=== PATIENT | female | born 2000 | race Caucasian/White ===

== ENCOUNTER 2022-09-18 12:05 | Outpatient (OUT) | payer BC, SELFPAY ==
--- NOTE | 2022-09-18 12:46 | ECG_ITS ---
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
--- NOTE | 2022-09-18 13:23 | PM.PRESUREVA ---
History of Present Illness History of Present Illness Chief complaint: vaginal cyst Narrative: Patient presents for preadmission testing. The patient states she's been dealing with a vaginal cyst for approximately the past year. She states it has recently grown in size and become more painful. The patient reports she had a sinus infection approximately one week ago and took Augmentin and is feeling better at this time. She has a remote history of palpitations and tachycardia, she was evaluated by cardiology and has been released, she is not currently medicated for tachycardia. She denies shortness of breath, cough, dysuria, hematuria, abdominal pain, nausea, vomiting, fever, or any other complaints. Review of Systems ROS Narrative REVIEW OF SYSTEMS: Negative except as stated in HPI, ten or more systems reviewed. Constitutional: No fever , chills, weakness ENT: No sore throat or epistaxis Cardiovascular: No edema, chest pain, palpitations, or activity intolerance Respiratory: No shortness of breath, cough, or wheezing Musculoskeletal: No joint pain or swelling Gastrointestinal: No abdominal pain, constipation, diarrhea, or vomiting Genitourinary: No dysuria or hematuria Neurological: No numbness, tingling, weakness, or headache Psychiatric: No mood changes [facility] Medical History (Updated 09/18/22 @ 13:28 by Citlalli Flores NP) (~09/2022) (~09/2022) Surgical History (Updated 09/18/22 @ 13:04 by Mi Virgen) (2007) Family History (Updated 09/18/22 @ 12:56 by Mi Virgen) Other Family history of CHF (congestive heart failure) Family history of hypertension Family history of myocardial infarction Social History (Updated 09/18/22 @ 13:07 by Mi Virgen) Within the past year, how often did you have a drink containing alcohol: 2-3 times a week Within the past year, how often did you have six or more drinks on one occasion: never Smoking status: Current every day smoker Do you use any of these nicotine containing products: vaping products Second hand tobacco smoke exposure: Yes Non-prescribed substance use: denies use 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 Highest level of school completed/degree received: Associate degree: occupational, technical, vocational program Meds Home Medications and Allergies Home Medications Medication Instructions Recorded Confirmed Type sertraline 100 mg tablet (Zoloft) 100 mg PO DAILY 09/18/22 09/18/22 History Allergies Allergy/AdvReac Type Severity Reaction Status Date / Time naproxen Allergy Severe Anaphylaxis Verified 09/18/22 12:39 [From Flanax (naproxen)] Exam Narrative Exam Narrative: Constitutional: Awake, alert, comfortable, well-appearing, nontoxic, interactive, vital signs as charted Head: Normocephalic, atraumatic Eyes: Conjunctiva and lids normal to inspection, pupils normal ENT: Tympanic membranes pearly akins, nonerythematous, noninjected, naris patent, posterior oropharynx clear, oral mucosa moist Neck: Supple, normal appearance, normal range of motion, no meningeal signs, no lymphadenopathy Respiratory: No respiratory distress, breath sounds clear Cardiovascular: Regular rate and rhythm, strong and regular heart tones Abdomen: Nontender, normal bowel sounds, soft, no CVA tenderness Musculoskeletal: Normal gait, no swelling or edema Skin: No rashes or induration, no lesions, only visible skin inspected Neuro: No neurological deficits, normal sensation Psychiatric: Oriented ?3, normal affect Assessment and Plan Assessment and Plan (1) Sinusitis: Onset Date: ~09/2022 (2) Vaginal cyst: Onset Date: ~09/2022 Plan Removal vaginal cyst scheduled with Dr. Smith 09/22/2022.
== END 2022-09-18 12:06 ==
PROVIDERS: PCP Family Medicine
DX: Z01.810 Encounter for preprocedural cardiovascular examination (principal); N89.8 Other specified noninflammatory disorders of vagina
CPT/HCPCS: 93005; G0463

== ENCOUNTER 2022-09-22 07:05 | Day surgery (SDC) | payer BC, SELFPAY ==
[2022-09-18 12:46] VITALS: BMI 26.9
[2022-09-18 12:48] VITALS: BP 115/78; PULSE 85; RESP 16; TEMP 36.6; O2SAT 98
[2022-09-18 13:08] VITALS: BP 115/78; PULSE 85; TEMP 36.6; O2SAT 98; BMI 26.9
[2022-09-22] VITALS (10 sets, daily range): BP systolic 100–118; BP diastolic 63–82; PULSE 69–114; RESP 10–20; TEMP 36.1; O2SAT 96–100; BMI 26.8
[2022-09-22 07:22] LABS: Basophils Absolute Auto 0.1 10^3/uL (0.0-0.1); Basophils Percent Auto 0.7 % (0.2-2.0); Eosinophils Absolute Auto 0.1 10^3/uL (0.0-0.7); Eosinophils Percent Auto 1.2 % (0.9-7.0); Hematocrit 42.5 % (36.0-48.0); Hemoglobin 14.3 g/dL (12.0-16.0); Immature Granulocytes Abs Auto 0.03 10^3/uL (0.00-0.03); Immature Granulocytes Pct Auto 0.4 % (0.0-0.5); Lymphocytes Absolute Auto 1.9 10^3/uL (1.2-3.8); Lymphocytes Percent Auto 26.7 % (20.5-60.0); Mean Corpuscular HGB Conc 33.6 g/dL (29.9-35.2); Mean Corpuscular Volume 86.2 fL (81.0-99.0); Mean Platelet Volume 10.3 fL (9.5-13.5); Monocytes Absolute Auto 0.4 10^3/uL (0.3-0.8); Monocytes Percent Auto 6.4 % (1.7-12.0); Neutrophils Absolute Auto 4.5 10^3/uL (1.4-6.5); Neutrophils Percent Auto 64.6 % (43.0-75.0); Platelet Count 242 10^3/uL (150-450); Red Blood Count 4.93 10^6/uL (4.20-5.40); Red Cell Distribution Width 12.4 % (11.0-15.0); White Blood Count 6.9 10^3/uL (4.0-11.0)
[2022-09-22 07:48] LABS: HCG Quantitative <1 mIU/mL
[2022-09-22] MEDS: MEPERIDINE HCL/PF 25 MG/ML VIAL IVP (10:04)
--- NOTE | 2022-09-22 10:37 | PC.NURSE ---
medicated with Demerol IV as ordered
[2022-09-22] MEDS: HYDROCODONE/ACETAMINOPHEN 5-325 MG TABLET 1 TAB PO (10:56)
--- NOTE | 2022-09-22 11:00 | PC.NURSE ---
no wound drainage vaginally; peripad dry
--- NOTE | 2022-09-22 11:03 | PC.NURSE ---
IV site swollen when about to give IV medication; no numbness or tingling of extremity noted; no blanching noted; warm compress applied to site and extremity elevated
--- NOTE | 2022-09-22 11:09 | PC.NURSE ---
peripad dry; waiting for Dr. Smith to give pain med order
--- NOTE | 2022-09-22 11:54 | PC.NURSE ---
up to bathroom and voided clear yellow urine without difficulty; peripad dry
--- NOTE | 2022-09-22 13:39 | OP_ITS ---
OPERATION DATE: ??09/22/2022 PROCEDURE:? Excision of a Murphy?s duct cyst. PREOPERATIVE DIAGNOSIS:? Dyspareunia, Murphy?s duct cyst. POSTOPERATIVE DIAGNOSIS:? Dyspareunia, Murphy?s duct cyst. ANESTHESIA:? General. SURGEON:? Monty Smith D.O. CONCAVING MACHINE OPERATOR:? None. BLOOD LOSS:? 10 mL. URINE OUTPUT:? Yellow and clear. FINDINGS:? Right Murphy?s duct cyst. SPECIMEN:? Cyst wall. PROCEDURE:? Patient was taken back to the operating room.? She was given general anesthesia without difficulty, after being prepped and draped in normal sterile fashion.? The cyst, which appeared to either be a Murphy?s duct cyst or inclusion cyst was seen just inside the right labial fold.? An incision was made over approximately 4 cm.? Incision was made over the area of the cyst.? This then was gently from the underlying tissue using Metzenbaum scissors.? The cyst wall did appear to be removed in its entirety.? The bed of the cyst wall was then cauterized using a Bovie.? Excellent hemostasis was assured.? The skin was closed with 4-0 Monocryl in a running, locked fashion.? Sponge, lap and needle counts correct x2.? Patient taken to recovery room in stable condition. MTDD
== END 2022-09-22 11:50 | disposition home or self-care (01) ==
PROVIDERS: PCP Family Medicine; Visit Provider Obstetrics & Gynecology
PROC: (CPT 57135; principal; 2022-09-22 08:30)
DX: Q52.4 Other congenital malformations of vagina (principal); N94.10 Unspecified dyspareunia; F41.1 Generalized anxiety disorder; K29.30 Chronic superficial gastritis without bleeding; E78.00 Pure hypercholesterolemia, unspecified; I49.3 Ventricular premature depolarization; Z79.899 Other long term (current) drug therapy
CPT/HCPCS: 57135; 36415; 84702; 85025; 88305; J1170; J2704

== ENCOUNTER 2022-09-27 21:46 | Outpatient (REF) | payer BC, SELFPAY | END 2022-09-27 21:47 | disposition home or self-care (01) | LOC: LAB 21:46 | PROVIDERS: PCP Obstetrics & Gynecology; Visit Provider Obstetrics & Gynecology | DX: N89.8 Other specified noninflammatory disorders of vagina (principal) | CPT/HCPCS: 87070; 87150; 87186 ==

== ENCOUNTER 2022-09-29 16:28 | Emergency (ER) | payer BC, SELFPAY ==
[2022-09-29 16:37] VITALS: BP 132/76; PULSE 103; RESP 18; TEMP 37.3; O2SAT 97; BMI 25.8
[2022-09-29] MEDS: HYDROCODONE/ACETAMINOPHEN 5-325 MG TABLET 1 TAB PO (17:14)
[2022-09-29] MEDS: BACITRACIN 0.9 GM PACKET 1 PACKET TOPICAL (17:14)
--- NOTE | 2022-09-29 17:23 | ED.GENADUL1 ---
HPI - General Adult General Chief complaint: Wound/Laceration Stated complaint: BLEEDING FROM SURGICAL SITE Time Seen by Provider: 09/29/22 16:41 Source: patient Mode of arrival: walk-in Limitations: no limitations History of Present Illness HPI narrative: Patient presents emergency room chief complaint dehiscence of the postoperative procedure on her right labial region. She had a cyst that was removed earlier in the week. Area dehisced she was seen by her physician where he did attempt to resolve the area is now opened again. Patient's here with discomfort and pain. She is currently on Keflex. She has no fevers chills. Open wound on the right labia measuring 2 x 3 cm length and width. No active bleeding or drainage Related Data Home Medications Medication Instructions Recorded Confirmed sertraline 100 mg tablet (Zoloft) 100 mg PO DAILY 09/18/22 09/22/22 Previous Rx's Medication Instructions Recorded bacitracin 500 unit/gram topical 1 applic topical BID #28 grams 09/29/22 ointment Allergies Allergy/AdvReac Type Severity Reaction Status Date / Time naproxen Allergy Severe Anaphylaxis Verified 09/18/22 12:39 [From Flanax (naproxen)] Review of Systems ROS Narrative All Systems are negative except as noted/marked.All systems reviewed and otherwise negative PFSH PFS Medical History (Updated 09/29/22 @ 17:28 by Lisa Macario) (~09/2022) (~09/2022) Surgical History (Updated 09/18/22 @ 13:04 by Mi Virgen) (2007) Family History (Updated 09/18/22 @ 12:56 by Mi Virgen) Other Family history of CHF (congestive heart failure) Family history of hypertension Family history of myocardial infarction Social History (Updated 09/18/22 @ 13:07 by Mi Virgen) Within the past year, how often did you have a drink containing alcohol: 2-3 times a week Within the past year, how often did you have six or more drinks on one occasion: never Smoking status: Current every day smoker Do you use any of these nicotine containing products: vaping products Second hand tobacco smoke exposure: Yes Non-prescribed substance use: denies use 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 Patient is resting comfortably on cart. Skin: Warm, dry, no pallor noted. There is no rash noted. Head: Normocephalic, atraumatic Eye: Normal conjunctiva, no drainage, EOMI. PERRL gu: right labial wound dehisence , some sutures intact, no active bleeding or drainage GI: Normal bowel sounds, no tenderness to palpation, no masses appreciated. No rebound, guarding, or rigidity noted. Musculoskeletal: The patient has no evidence of calf tenderness, no pitting edema, symmetrical pulses noted bilaterally Neurological: A&O x4, normal speech Psychiatric: Cooperative Constitutional Vital Signs - 24 hr 09/29/22 16:37 Temperature 99.1 F Pulse Rate [Monitor] 103 H Respiratory Rate 18 Blood Pressure [Left Arm] 132/76 H Pulse Oximetry 97 Genital images (female): 1. post op cycst removal wound open Course Vital Signs Vital signs: Vital Signs Temperature 99.1 F 09/29/22 16:37 Pulse Rate 103 H 09/29/22 16:37 Respiratory Rate 18 09/29/22 16:37 Blood Pressure 132/76 H 09/29/22 16:37 Pulse Oximetry 97 09/29/22 16:37 Temperature 99.1 F 09/29/22 16:37 Pulse Rate 103 H 09/29/22 16:37 Respiratory Rate 18 09/29/22 16:37 Blood Pressure 132/76 H 09/29/22 16:37 Pulse Oximetry 97 09/29/22 16:37 Medical Decision Making [facility] Narrative Medical decision making narrative: She presented here with a chief complaint of wound dehiscence to a vaginal cyst that she had had surgically removed last week. Seen by her primary LOGGING TRACTOR OPERATOR SWAMP earlier this week where he did try to reclose area. He is now open again. There is no drainage or discharge. The area is tender. Patient states Tylenol is not helping. Medicated here with one [place] discharged home with prescription of [place]. I did call and speak to Dr. Smith concerning this patient's care. Bacitracin was placed on the area and Xeroform was then placed on the area. Patient be discharged home with Xeroform. She'll follow-up in his office this next week. Patient's otherwise looks well no acute distress. Discharge Plan Discharge Chief Complaint: Wound/Laceration Clinical Impression: Dehiscence of wound Patient Disposition: Home, Self-Care Time of Disposition Decision: 17:23 Prescriptions / Home Meds: New bacitracin 500 unit/gram ointment 1 applic topical BID Qty: 28 0RF No Action sertraline [Zoloft] 100 mg tablet 100 mg PO DAILY Instructions: Wound Dehiscence (ED) Stand Alone Forms: Portal Instructions Referrals: Monty Smith DO [Primary Care Provider] - 1 week
== END 2022-09-29 17:37 | disposition home or self-care (01) ==
PROVIDERS: Emergency Provider Emergency Medicine; PCP Obstetrics & Gynecology
DX: T81.31XA Disruption of external operation (surgical) wound, not elsewhere classified, initial encounter (principal); F17.210 Nicotine dependence, cigarettes, uncomplicated
CPT/HCPCS: 99283

== ENCOUNTER 2022-10-11 12:03 | Outpatient (OUT) | payer BC, SELFPAY ==
[2022-10-11 13:17] LABS: HCG Quantitative 23390 mIU/mL
== END 2022-10-11 12:04 | disposition home or self-care (01) ==
LOC: LAB 12:08
PROVIDERS: Visit Provider Obstetrics & Gynecology
DX: N92.5 Other specified irregular menstruation (principal)
CPT/HCPCS: 36415; 84702

== ENCOUNTER 2022-11-02 12:40 | Outpatient (OUT) | payer BC, SELFPAY ==
--- NOTE | 2022-11-02 12:43 | US_ITS ---
[address] [address] Patient Name: PAPITO BOSS MRN: [id number] date: 2000 Sex: F Assigned Patient Location: US Current Patient Location: US Accession/Order Number: [id number] Exam Date: 11/02/2022 12:43 Report Date: 11/02/2022 20:54 At the request of: SHELLY SCHMID Procedure: US OB transvaginal EXAMINATION: US OB transvaginal HISTORY: MISSED PERIOD COMPARISON: No relevant comparison available. FINDINGS: [place] intrauterine gestation Gestational sac: 4.13 cm, 9 weeks 4 days [place]-rump length: 2.3 cm centimeters, 9 weeks 0 days Yolk sac: 3.7 mm Heart rate: 171 beats minute Cervix: Closed, 4.7 cm The uterus is normal, anteverted, anteflexed The ovaries are normal Clinical age: 8 weeks 5 days Clinical RITIKA: 06/09/2023 Ultrasound age: 9 weeks 0 days Ultrasound RITIKA: 06/07/2023 US/US OB transvaginal IMPRESSION: [place] intrauterine gestation measuring 9 weeks 0 days Electronically authenticated by: REAGAN CALERO Date: 11/02/2022 20:54
== END 2022-11-02 12:41 | disposition home or self-care (01) ==
LOC: US 12:40
PROVIDERS: Visit Provider Obstetrics & Gynecology
DX: N92.5 Other specified irregular menstruation (principal); Z33.1 Pregnant state, incidental
CPT/HCPCS: 76817

== ENCOUNTER 2022-11-17 13:23 | Outpatient (OUT) | payer BC, MEDICAID, SELFPAY ==
[2022-11-17 14:27] LABS: Basophils Percent Auto 0.3 % (0.2-2.0); Eosinophils Absolute Auto 0.1 10^3/uL (0.0-0.7); Eosinophils Percent Auto 0.7 % (0.9-7.0); Hematocrit 37.6 % (36.0-48.0); Hemoglobin 12.8 g/dL (12.0-16.0); Immature Granulocytes Abs Auto 0.03 10^3/uL (0.00-0.03); Immature Granulocytes Pct Auto 0.4 % (0.0-0.5); Lymphocytes Absolute Auto 1.6 10^3/uL (1.2-3.8); Lymphocytes Percent Auto 20.4 % (20.5-60.0); Mean Corpuscular Hemoglobin 29.7 pg (26.7-34.0); Mean Corpuscular Volume 87.2 fL (81.0-99.0); Mean Platelet Volume 12.1 fL (9.5-13.5); Monocytes Absolute Auto 0.4 10^3/uL (0.3-0.8); Monocytes Percent Auto 4.6 % (1.7-12.0); Neutrophils Absolute Auto 5.6 10^3/uL (1.4-6.5); Neutrophils Percent Auto 73.6 % (43.0-75.0); Platelet Count 138 10^3/uL (150-450); Red Blood Count 4.31 10^6/uL (4.20-5.40); Red Cell Distribution Width 13.3 % (11.0-15.0); White Blood Count 7.6 10^3/uL (4.0-11.0)
[2022-11-17 14:51] LABS: Estimated Average Glucose 97 mg/dL
[2022-11-18 06:11] LABS: HIV Ab/p24 Ag Screen Non Reactive (Non Reactive); Rubella Antibodies, IgG 3.16 index (Immune >0.99)
[2022-11-18 08:12] LABS: HBsAg Screen Negative (Negative)
[2022-11-18 09:09] LABS: HCV Ab Non Reactive (Non Reactive); Rapid Plasma Reagin, Quant Non Reactive (NonRea<1:1)
== END 2022-11-17 13:24 | disposition home or self-care (01) ==
LOC: LAB 13:26
PROVIDERS: PCP Family Medicine; Visit Provider Obstetrics & Gynecology
DX: N92.6 Irregular menstruation, unspecified (principal); Z34.80 Encounter for supervision of other normal pregnancy, unspecified trimester
CPT/HCPCS: 36415; 83036; 84443; 85025; 86592; 86706; 86762; 86803; 86850; 86900; 86901; 87086; 87389

== ENCOUNTER 2022-11-29 00:12 | Emergency (ER) | payer BC, MEDICAID, SELFPAY ==
[2022-11-29 00:18] VITALS: BP 138/89; PULSE 108; RESP 16; TEMP 37.2; O2SAT 97; BMI 27.4
--- NOTE | 2022-11-29 00:34 | ED.PREGNANC1 ---
HPI - General Chief complaint: OB/Uterine Contractions Stated complaint: PROBLEMS <20 WEEKS Time Seen by Provider: 11/29/22 00:28 Source: patient Mode of arrival: walk-in Limitations: no limitations History of Present Illness HPI Narrative: [id number] 12 weeks . bleeding tonight after intercourse. No pain. bleeding now slowing down. otherwise feels well Related Data Home Medications Medication Instructions Recorded Confirmed sertraline 100 mg tablet (Zoloft) 100 mg PO DAILY 09/18/22 11/29/22 [id number] 1 mg 1 tab PO DAILY 11/29/22 11/29/22 tablet Previous Rx's Medication Instructions Recorded bacitracin 500 unit/gram topical 1 applic topical BID #28 grams 09/29/22 ointment Allergies Allergy/AdvReac Type Severity Reaction Status Date / Time naproxen Allergy Severe Anaphylaxis Verified 11/29/22 00:22 [From Flanax (naproxen)] Review of Systems ROS Status of ROS 10 or more systems reviewed and unremarkable except as noted in history and below [facility] Medical History (Updated 11/29/22 @ 02:07 by Jim Manzo MD) (~09/2022) (~09/2022) Surgical History (Updated 09/18/22 @ 13:04 by Mi Perez) (2007) Family History (Updated 09/18/22 @ 12:56 by Mi Perez) Other Family history of CHF (congestive heart failure) Family history of hypertension Family history of myocardial infarction Social History (Updated 09/18/22 @ 13:07 by Mi Perez) Within the past year, how often did you have a drink containing alcohol: 2-3 times a week Within the past year, how often did you have six or more drinks on one occasion: never Smoking status: Never smoker Do you use any of these nicotine containing products: vaping products Second hand tobacco smoke exposure: Yes Non-prescribed substance use: denies use 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 Highest level of school completed/degree received: Associate degree: occupational, technical, vocational program Exam Constitutional Vital Signs, click to edit/add: Last Vital Signs Temp 98.9 F 11/29/22 00:18 Pulse 92 H 11/29/22 01:06 Resp 16 11/29/22 00:18 BP 115/73 11/29/22 01:06 Pulse Ox 97 11/29/22 00:18 O2 Del Method Room Air 11/29/22 00:18 Common normals: no apparent distress, average body habitus, oriented x3, no limitations, healthy appearing and alert Eye Common normals: PERRL, EOMs intact bilaterally and conjunctivae normal Respiratory Common normals: normal respiratory effort, no retractions and no use of accessory muscles Cardio Common normals: regular rate, regular rhythm, S1 normal heart sound and S2 normal heart sound GI Common normals: Normal to inspection, nondistended, normoactive bowel sounds present, soft to palpation and non-tender Extremity Common normals: normal to inspection Neuro Common normals: oriented x3, CN's II-XII intact bilaterally, moves all extremities and no focal motor deficits Psych Appearance: grossly normal Course Vital Signs Vital signs: Vital Signs Temperature 98.9 F 11/29/22 00:18 Pulse Rate 108 H 11/29/22 00:18 Respiratory Rate 16 11/29/22 00:18 Blood Pressure 138/89 11/29/22 00:18 Pulse Oximetry 97 11/29/22 00:18 Oxygen Delivery Method Room Air 11/29/22 00:18 Temperature 98.9 F 11/29/22 00:18 Pulse Rate 92 H 11/29/22 01:06 Respiratory Rate 16 11/29/22 00:18 Blood Pressure 115/73 11/29/22 01:06 Pulse Oximetry 97 11/29/22 00:18 Oxygen Delivery Method Room Air 11/29/22 00:18 MDM - OB/Uterine Contractions MDM Narrative Medical decision making narrative: patient with transient bleeding after intercourse. abdominal exam neg. [id number]. No bleeding at this time. H/H WNL. Rh +. lab reveals a decline in Quantitative HCG from last month. Will have patient repeat Quant HCQ in 48 hours and then follow up with Dr Smith labs reviewed and she is 0+ Lab Data Labs: Lab Results 11/29/22 Range/Units 00:40 WBC 6.8 (4.0-11.0) 10^3/uL RBC 4.22 (4.20-5.40) 10^6/uL Hgb 12.6 (12.0-16.0) g/dL Hct 37.0 (36.0-48.0) % MCV 87.7 (81.0-99.0) fL MCH 29.9 (26.7-34.0) pg MCHC 34.1 (29.9-35.2) g/dL RDW 13.2 (11.0-15.0) % Plt Count 212 (150-450) 10^3/uL MPV 10.6 (9.5-13.5) fL Neut % (Auto) 64.0 (43.0-75.0) % Lymph % (Auto) 27.6 (20.5-60.0) % [place] % (Auto) 6.7 (1.7-12.0) % Eos % (Auto) 1.0 (0.9-7.0) % Baso % (Auto) 0.4 (0.2-2.0) % Neut # (Auto) 4.3 (1.4-6.5) 10^3/uL Lymph # (Auto) 1.9 (1.2-3.8) 10^3/uL [place] # (Auto) 0.5 (0.3-0.8) 10^3/uL Eos # (Auto) 0.1 (0.0-0.7) 10^3/uL Baso # (Auto) 0.0 (0.0-0.1) 10^3/uL Abs Immat Gran (auto) 0.02 (0.00-0.03) 10^3/uL Imm/Tot Granulo (auto) 0.3 (0.0-0.5) % Sodium 136 (136-145) mmol/L Potassium 3.4 L (3.5-5.1) mmol/L Chloride 103 (98-107) mmol/L Carbon Dioxide 22.3 (21.0-32.0) mmol/L Anion Gap 14.1 BUN 8.0 (7.0-18.0) mg/dL Creatinine 0.60 (0.55-1.02) mg/dL Est GFR ( Amer) >60 (>=60) Est GFR (Non-Af Amer) >60 (>=60) BUN/Creatinine Ratio 13.3 Glucose 106 (74-106) mg/dL Calcium 8.6 (8.5-10.1) mg/dL HCG, Quant 86324 mIU/mL Discharge Plan Discharge Chief Complaint: OB/Uterine Contractions Clinical Impression: Threatened miscarriage Patient Disposition: Home, Self-Care Prescriptions / Home Meds: No Action bacitracin 500 unit/gram ointment 1 applic topical BID Qty: 28 0RF [id number] 1 mg tablet 1 tab PO DAILY sertraline [Zoloft] 100 mg tablet 100 mg PO DAILY Instructions: Threatened Miscarriage (ED) Additional Instructions: have lab testing 48 hours after test tonight for comparison Stand Alone Forms: Portal Instructions Referrals: Tj Toribio MD [Primary Care Provider] - 1 week
[2022-11-29 00:51] LABS: Basophils Percent Auto 0.4 % (0.2-2.0); Eosinophils Absolute Auto 0.1 10^3/uL (0.0-0.7); Hemoglobin 12.6 g/dL (12.0-16.0); Immature Granulocytes Abs Auto 0.02 10^3/uL (0.00-0.03); Immature Granulocytes Pct Auto 0.3 % (0.0-0.5); Lymphocytes Absolute Auto 1.9 10^3/uL (1.2-3.8); Lymphocytes Percent Auto 27.6 % (20.5-60.0); Mean Corpuscular HGB Conc 34.1 g/dL (29.9-35.2); Mean Corpuscular Hemoglobin 29.9 pg (26.7-34.0); Mean Corpuscular Volume 87.7 fL (81.0-99.0); Mean Platelet Volume 10.6 fL (9.5-13.5); Monocytes Absolute Auto 0.5 10^3/uL (0.3-0.8); Monocytes Percent Auto 6.7 % (1.7-12.0); Neutrophils Absolute Auto 4.3 10^3/uL (1.4-6.5); Platelet Count 212 10^3/uL (150-450); Red Blood Count 4.22 10^6/uL (4.20-5.40); Red Cell Distribution Width 13.2 % (11.0-15.0); White Blood Count 6.8 10^3/uL (4.0-11.0)
[2022-11-29 01:06] VITALS: BP 109/82; BP 114/80; BP 115/73; PULSE 92; PULSE 94
[2022-11-29 01:26] LABS: Anion Gap 14.1; BUN Creatinine Ratio 13.3; Calcium 8.6 mg/dL (8.5-10.1); Carbon Dioxide 22.3 mmol/L (21.0-32.0); Chloride 103 mmol/L (98-107); Estimated GFR (African America >60 (>=60); Estimated GFR (Non-African Ame >60 (>=60); Glucose 106 mg/dL (74-106); HCG Quantitative 22168 mIU/mL; Potassium 3.4 mmol/L (3.5-5.1); Sodium 136 mmol/L (136-145)
[2022-11-29 02:16] VITALS: BP 118/70; PULSE 83; RESP 16; O2SAT 98
== END 2022-11-29 02:22 | disposition home or self-care (01) ==
PROVIDERS: Emergency Provider Internal Medicine; PCP Family Medicine
DX: O20.0 Threatened abortion (principal); Z3A.12 12 weeks gestation of pregnancy; Z79.899 Other long term (current) drug therapy
CPT/HCPCS: 36415; 80048; 84702; 85025; 99283

== ENCOUNTER 2022-12-05 14:11 | Outpatient (OUT) | payer BC, MEDICAID, SELFPAY ==
--- NOTE | 2022-12-05 14:11 | US_ITS ---
[address] [address] Patient Name: PAPITO BOSS MRN: [id number] date: 2000 Sex: F Assigned Patient Location: [facility] Current Patient Location: LAB Accession/Order Number: [id number] Exam Date: 12/05/2022 14:15 Report Date: 12/05/2022 15:17 At the request of: SHELLY SCHMID Procedure: US OB cervical length EXAMINATION: US OB cervical length HISTORY: VAGINAL BLEEDING IN . O46.92 COMPARISON: Ultrasound OB transvaginal 11/02/2022 TECHNIQUE: Transabdominal and transvaginal sonographic examination for cervical length. FINDINGS: PLACENTA: Anterior with lower margin 4.8 cm from internal os. CERVIX LENGTH: 4.4 cm, closed. HEART RATE: 147 bpm Age by EDC: 13 weeks 3 days RITIKA by EDC: 06/09/2023 US/US OB cervical length IMPRESSION: 1. Single live intrauterine . 2. Closed cervix 4.4 cm in length. No placental previa. Electronically authenticated by: SAUL HOBBS Date: 12/05/2022 15:17
== END 2022-12-05 14:12 | disposition home or self-care (01) ==
LOC: NOMS 14:11
PROVIDERS: PCP Family Medicine; Visit Provider Obstetrics & Gynecology
DX: O46.92 Antepartum hemorrhage, unspecified, second trimester (principal); Z3A.00 Weeks of gestation of pregnancy not specified
CPT/HCPCS: 76817

== ENCOUNTER 2022-12-05 14:38 | Outpatient (OUT) | payer BC, MEDICAID, SELFPAY ==
[2022-12-05 15:27] LABS: Platelet Count 190 10^3/uL (150-450)
[2022-12-08 16:09] LABS: AFP Value 17.2 ng/mL (.); Gest. Age on Collection Date 13.4 weeks (.); Gestat. Age Based On As provided (.); Insulin Dep Diabetes No (.); Maternal Age At EDD 24.9 yr (.); OSBR Risk 1 IN See interpretation. (.); Results Report (.)
== END 2022-12-05 14:39 | disposition home or self-care (01) ==
PROVIDERS: PCP Family Medicine; Visit Provider Obstetrics & Gynecology
DX: O26.892 Other specified pregnancy related conditions, second trimester (principal); D69.6 Thrombocytopenia, unspecified; O46.92 Antepartum hemorrhage, unspecified, second trimester; Z3A.00 Weeks of gestation of pregnancy not specified
CPT/HCPCS: 36415; 76817; 82105; 85049

== ENCOUNTER 2023-01-19 13:37 | Outpatient (OUT) | payer BC, OTHER, SELFPAY ==
[2023-01-21 00:11] LABS: AFP Value 52.3 ng/mL (.); Gest. Age on Collection Date 19.9 weeks (.); Insulin Dep Diabetes No (.); Maternal Age At EDD 24.9 yr (.); OSBR Risk 1 IN 10000 (.); Results Report (.)
== END 2023-01-19 13:38 | disposition home or self-care (01) ==
LOC: LAB 13:38
PROVIDERS: PCP Family Medicine; Visit Provider Obstetrics & Gynecology
DX: Z34.92 Encounter for supervision of normal pregnancy, unspecified, second trimester (principal)
CPT/HCPCS: 36415; 82105

== ENCOUNTER 2023-01-22 07:57 | Outpatient (OUT) | payer BC, OTHER, SELFPAY ==
--- NOTE | 2023-01-22 08:00 | US_ITS ---
[address] [address] Patient Name: PAPITO BOSS MRN: [id number] date: 2000 Sex: F Assigned Patient Location: US Current Patient Location: LAB Accession/Order Number: [id number] Exam Date: 01/22/2023 08:01 Report Date: 01/22/2023 10:31 At the request of: GHISLAINE VEGA Procedure: US OB anatomy EXAMINATION: US OB anatomy HISTORY: ANATOMY COMPARISON: No relevant comparison available. TECHNIQUE: Transabdominal sonographic examination was performed for obstetrical and evaluation. FINDINGS: Number: 1 Heart Rate: 142.0 bpm H.B. /min Amniotic Fluid Volume: Subjectively normal position: Cephalic presentation, longitudinal lie Placental Location: ANTERIOR, placental edge 4.8 cm from the internal cervical os Cervix Length: 4.6 cm , closed Normal anatomy: Lateral ventricles, cerebellum, posterior fossa, nose, lips, orbits, four-chamber heart, RVOT, LVOT, diaphragm, stomach, kidneys, abdominal cord insertion, bladder, umbilical arteries, three-vessel cord, spine, extremities BIOMETRY: BPD: 5.1 cm 21 weeks 2 days , 87% HC: 18.7 cm 21 weeks 0 days, 76% AC: 15.1 cm 20 weeks 2 days, 46% FL: 3.7 cm 21 weeks 6 days, 90% EFW:397.9 grams; 14 ounces, 86% FL/AC: 24.7 FL/BPD: 73.9 HC/AC: 1.2 GESTATIONAL AGE: Age by EDC: 20 weeks 2 days RITIKA by EDC: 06/09/2023 Age by current US: 21 weeks 1 days RITIKA by current US: 06/03/2023 US/US OB anatomy IMPRESSION: Normal anatomy scan *Reference: [employer] Practice Guideline for the performance of Obstetric Ultrasound Examinations, January 07, 2007. Electronically authenticated by: REAGAN CALERO Date: 01/22/2023 10:31
--- NOTE | 2023-01-22 08:00 | US_ITS ---
[address] [address] Patient Name: PPAITO BOSS MRN: [id number] date: 2000 Sex: F Assigned Patient Location: US Current Patient Location: LAB Accession/Order Number: [id number] Exam Date: 01/22/2023 08:01 Report Date: 01/22/2023 10:31 At the request of: GHISLAINE VEGA Procedure: US OB cervical length EXAMINATION: US OB anatomy HISTORY: ANATOMY COMPARISON: No relevant comparison available. TECHNIQUE: Transabdominal sonographic examination was performed for obstetrical and evaluation. FINDINGS: Number: 1 Heart Rate: 142.0 bpm H.B. /min Amniotic Fluid Volume: Subjectively normal position: Cephalic presentation, longitudinal lie Placental Location: ANTERIOR, placental edge 4.8 cm from the internal cervical os Cervix Length: 4.6 cm , closed Normal anatomy: Lateral ventricles, cerebellum, posterior fossa, nose, lips, orbits, four-chamber heart, RVOT, LVOT, diaphragm, stomach, kidneys, abdominal cord insertion, bladder, umbilical arteries, three-vessel cord, spine, extremities BIOMETRY: BPD: 5.1 cm 21 weeks 2 days , 87% HC: 18.7 cm 21 weeks 0 days, 76% AC: 15.1 cm 20 weeks 2 days, 46% FL: 3.7 cm 21 weeks 6 days, 90% EFW:397.9 grams; 14 ounces, 86% FL/AC: 24.7 FL/BPD: 73.9 HC/AC: 1.2 GESTATIONAL AGE: Age by EDC: 20 weeks 2 days RITIKA by EDC: 06/09/2023 Age by current US: 21 weeks 1 days RITIKA by current US: 06/03/2023 US/US OB cervical length IMPRESSION: Normal anatomy scan *Reference: [employer] Practice Guideline for the performance of Obstetric Ultrasound Examinations, January 07, 2007. Electronically authenticated by: REAGAN CALERO Date: 01/22/2023 10:31
== END 2023-01-22 07:58 | disposition home or self-care (01) ==
LOC: US 07:58
PROVIDERS: PCP Family Medicine; Visit Provider Physician Assistant
DX: Z34.92 Encounter for supervision of normal pregnancy, unspecified, second trimester (principal); Z3A.20 20 weeks gestation of pregnancy
CPT/HCPCS: 76805; 76817

== ENCOUNTER 2023-02-24 08:58 | Outpatient (OUT) | payer BC, OTHER, SELFPAY ==
[2023-02-24 09:55] LABS: Basophils Percent Auto 0.4 % (0.2-2.0); Eosinophils Percent Auto 0.5 % (0.9-7.0); Hematocrit 36.4 % (36.0-48.0); Hemoglobin 12.3 g/dL (12.0-16.0); Immature Granulocytes Abs Auto 0.05 10^3/uL (0.00-0.03); Immature Granulocytes Pct Auto 0.7 % (0.0-0.5); Lymphocytes Absolute Auto 1.9 10^3/uL (1.2-3.8); Lymphocytes Percent Auto 25.1 % (20.5-60.0); Mean Corpuscular HGB Conc 33.8 g/dL (29.9-35.2); Mean Corpuscular Hemoglobin 29.6 pg (26.7-34.0); Mean Corpuscular Volume 87.5 fL (81.0-99.0); Mean Platelet Volume 10.8 fL (9.5-13.5); Monocytes Absolute Auto 0.3 10^3/uL (0.3-0.8); Monocytes Percent Auto 4.5 % (1.7-12.0); Neutrophils Absolute Auto 5.1 10^3/uL (1.4-6.5); Neutrophils Percent Auto 68.8 % (43.0-75.0); Platelet Count 200 10^3/uL (150-450); Red Blood Count 4.16 10^6/uL (4.20-5.40); Red Cell Distribution Width 13.3 % (11.0-15.0); White Blood Count 7.4 10^3/uL (4.0-11.0)
[2023-02-24 10:15] LABS: Glucose 1 Hour 162 mg/dL
== END 2023-02-24 08:59 | disposition home or self-care (01) ==
LOC: LAB 08:58
PROVIDERS: PCP Family Medicine; Visit Provider Physician Assistant
DX: Z34.92 Encounter for supervision of normal pregnancy, unspecified, second trimester (principal)
CPT/HCPCS: 36415; 82950; 85025

== ENCOUNTER 2023-03-02 08:11 | Outpatient (OUT) | payer BC, OTHER, SELFPAY ==
[2023-03-02 08:29] LABS: Glucose Fasting 80 mg/dL (74-106)
[2023-03-02 11:00] LABS: Glucose 2 Hour 175 mg/dL
[2023-03-02 11:56] LABS: Glucose 3 Hour 166 mg/dL
[2023-03-02 13:26] LABS: Glucose 1 Hour 157 mg/dL
== END 2023-03-02 08:12 | disposition home or self-care (01) ==
LOC: LAB 08:11
PROVIDERS: PCP Family Medicine; Visit Provider Obstetrics & Gynecology
DX: Z34.92 Encounter for supervision of normal pregnancy, unspecified, second trimester (principal); E74.39 Other disorders of intestinal carbohydrate absorption
CPT/HCPCS: 36415; 82951; 82952

== ENCOUNTER 2023-03-30 11:15 | Outpatient (OUT) | payer BC, OTHER, SELFPAY | END 2023-03-30 11:16 | disposition home or self-care (01) | LOC: CR 11:15 | PROVIDERS: PCP Family Medicine; Visit Provider Obstetrics & Gynecology | DX: O24.410 Gestational diabetes mellitus in pregnancy, diet controlled (principal) | CPT/HCPCS: G0108 ==

== ENCOUNTER 2023-04-16 18:04 | Outpatient (OUT) | payer BC, OTHER, SELFPAY ==
--- NOTE | 2023-04-16 | US_ITS ---
[address] [address] Patient Name: PAPITO BOSS MRN: [id number] date: 2000 Sex: F Assigned Patient Location: US Current Patient Location: Accession/Order Number: [id number] Exam Date: 04/16/2023 18:07 Report Date: 04/17/2023 07:19 At the request of: SHELLY SCHMID Procedure: US OB growth EXAMINATION: US OB growth HISTORY: SIZE INCONSISTEN WITH DATES O26.849 COMPARISON: No relevant comparison available. FINDINGS: Heart Rate: 141.4 bpm Amniotic Fluid Volume: 13.0 cm Number: 1.0 Position: Breech presentation, longitudinal lie Maximum Vertical Pocket: 2.7 cm cm 2.8 cm cm 3.7 cm cm 3.7 cm cm BIOMETRY: BPD: 7.9 cm cm; 31 weeks 4 days; 21% HC: 31.4 cmcm; 35 weeks 1 days, 85% AC: 28.4 cm cm; 32 weeks 3 days, 54% FL: 6.4 cm cm; 33 weeks 0 days; 57.8 % % EFW: 2051.3 grams, 4 lbs. 8 oz., 56% FL/AC: 22.5 FL/BPD: 81.3 HC/AC: 1.1 GESTATIONAL AGE: Age by EDC: 32 weeks 2 days RITIKA by EDC: 06/09/2023 Age by US: 33 weeks 0 days RITIKA by US: 06/04/2023 US/US OB growth IMPRESSION: Normal interval growth Electronically authenticated by: REAGAN CALERO Date: 04/17/2023 07:19
--- OUTSIDE RECORDS SUMMARY | 2023-04-16 18:06 | XMS_ITS | CCD ---
Author Name Unknown Address [address] [facility] [address] [place] [address] Organization [facility] Care Team Providers Care Tailer Out Name Role Phone BINU ., DR BRAVO Attending Unavailable BINU ., DR BRAVO Consulting Unavailable BINU ., DR BRAVO Admitting Unavailable NADERER, DR ANDRE Shukla Primary Care Unavailable NADERER, DR ANDRE Shukla Attending Unavailable NADERER, DR ANDRE Shukla Consulting Unavailable NADERER, DR ANDRE Shukla Primary Care Unavailable NADERER, DR ANDRE Shukla Admitting Unavailable BINU ., DR BRAVO Attending Unavailable BINU ., DR BRAVO Consulting Unavailable BINU ., DR BRAVO Admitting Unavailable NADERER, DR ANDRE Shukla Primary Care Unavailable BINU, SHELLY Attending Unavailable SILVIAGHISLAINE Attending Unavailable Allergies Allergy Classification Reported Allergen(s) Allergy Type Date of Onset Reaction(s) Facility (1 source) Naproxen Drug Allergy 07-02-2019 [facility] Repository Problems Active Problems Problem Classification Problem Date Documented Date Episodic/Chronic Cancer of cervix (4 sources) Low grade squamous intraepithelial lesion on cytologic smear of cervix (LGSIL); Translations: [LGSIL ON CYTOLOGIC SMEAR OF CERVIX] Onset: 07-12-2022 Episodic Past or Other Problems Problem Classification Problem Date Documented Date Episodic/Chronic Immunizations and screening for infectious disease (1 source) Encounter for screening for human papillomavirus (HPV); Translations: [ENC SCREENING HUMAN PAPILLOMAVIRUS] Onset: 12-18-2021 Episodic Other screening for suspected conditions (not mental disorders or infectious disease) (4 sources) Encounter for screening for malignant neoplasm of cervix; Translations: [ENC SCREENING MALIG NEOPLASM CERV] Onset: 12-14-2021 Episodic Results Test Name Value Interpretation Reference Range Facility PAP ACOG PANEL 2: 21 to 29on 07-20-2022 . . Normal [facility] Comment on above: Performed By: #### [id number] #### [facility] [address] [place] [address] Dr. Jame Hutton Age Gdln ACOG Testing 21-29 Normal [facility] Comment on above: Performed By: #### 4 [id number] #### [facility] [address] [place] [address] Dr. Jame Hutton DIAGNOSIS: Comment Abnormal [facility] Comment on above: Result Comment: EPIT HELIAL CELL ABNORMALITY. LOW GRADE SQUAMOUS INTRAEPITHELIAL LESION (LSIL). Performed By: #### [id number] #### [facility] [address] [place] [address] Dr. Jame Hutton Electronically signed by: Comment Normal [facility] Comment on above: Result Comment: Yohana Garsia MD, Pathologist Performed By: #### 4 [id number] #### [facility] [address] [place] [address] Dr. Jame Hutton Methodology: Comment [facility] Comment on above: Result Comment: This liquid based ThinPrep(R) pap test was screened with the use of an image guided system. Performed By: #### 4 [id number] #### [facility] [address] [place] [address] Dr. Jame Hutton Note: Comment [facility] Comment on above: Result Comment: The Pap smear is a screening test designed to aid in the detection of premalignant and malignant conditions of the uterine cervix. It is not a diagnostic procedure and should not be used as the sole means of detecting cervical cancer. Both false-positive and false-negative reports do occur. . Performed By: #### 4 [id number] #### [facility] [address] [place] [address] Dr. Jame Hutton Pathologist Provided ICD10 Comment [facility] Comment on above: Result Comment: [id number]. [id number] Performed By: #### 4 [id number] #### [facility] [address] [place] [address] Dr. Jame Hutton Performed by: Comment Normal [facility] Comment on above: Result Comment: Shivani el Fredeking, Television Writer (ASCP) Performed By: #### 4 [id number] #### [facility] [address] [place] [address] Dr. Jame Hutton Recommendation: Comment Abnormal [facility] Comment on above: Result Comment: Sugg est follow up as clinically appropriate. Performed By: #### 4 [id number] #### [facility] [address] [place] [address] Dr. Jame Hutton Reflex Criteria: Comment Normal [facility] Comment on above: Result Comment: The HPV DNA reflex criteria were not met with this specimen result therefore, no HPV testing was performed. . Performed By: #### 4 [id number] #### [facility] [address] [place] [address] Dr. Jame Hutton Specimen adequacy: Comment Normal [facility] Comment on above: Result Comment: Sati sfactory for evaluation. Endocervical and/or squamous metaplastic cells (endocervical component) are present. Areas of partially obscuring inflammatory exudate are present. Performed By: #### 4 [id number] #### [facility] [address] [place] [address] Dr. Jame Hutton INSULINon 02-03-2022 Insulin 11.5 uIU/mL Normal 2.6-24.9 [facility] Comment on above: Performed By: #### I NSULIN #### [facility] [address] [place] [address] Dr. Jame Hutton CBC AUTO DIFFon 02-01-2022 BASO # 0.0 103/ul Normal 0.0-0.1 [facility] Comment on above: Performed By: #### C BC #### [facility] [address] [place] [address] Dr. Jame Hutton Basophils/100 WBC (Bld) 0.6 % Normal 0.2-2.0 [facility] Comment on above: Performed By: #### C BC #### [facility] [address] [place] [address] Dr. Jame Hutton EO # 0.1 103/ul Normal 0.0-0.7 [facility] Comment on above: Performed By: #### C BC #### [facility] [address] [place] [address] Dr. Jame Hutton Eosinophils/100 WBC (Bld) 0.8 % Critically low 0.9-7.0 [facility] Comment on above: Performed By: #### C BC #### [facility] [address] [place] [address] Dr. Jame Hutton Erythrocyte distribution width (RBC) [Ratio] 12.5 % Normal 11.0-15.0 [facility] Comment on above: Performed By: #### C BC #### [facility] [address] [place] [address] Dr. Jame Hutton Hematocrit (Bld) [Volume fraction] 43.5 % Normal 36.0-48.0 [facility] Comment on above: Performed By: #### C BC #### [facility] [address] [place] [address] Dr. Jame Hutton Hemoglobin (Bld) [Mass/Vol] 14.8 g/dL Normal 12.0-16.0 [facility] Comment on above: Performed By: #### C BC #### [facility] [address] [place] [address] Dr. Jame Hutton IG # 0.02 10e3/ul Normal 0.00-0.03 [facility] Comment on above: Performed By: #### C BC #### [facility] [address] [place] [address] Dr. Jame Hutton IG % 0.3 % Normal 0.0-0.5 [facility] Comment on above: Performed By: #### C BC #### [facility] [address] [place] [address] Dr. Jame Hutton LYMPH # 1.7 103/ul Normal 1.2-3.8 [facility] Comment on above: Performed By: #### C BC #### [facility] [address] [place] [address] Dr. Jame Hutton Lymphocytes/100 WBC (Bld) 23.3 % Normal 20.5-60.0 [facility] Comment on above: Performed By: #### C BC #### [facility] [address] [place] [address] Dr. Jame Hutton MANUAL DIFF REQ NO Normal [facility] Comment on above: Performed By: #### C BC #### [facility] [address] [place] [address] Dr. Jame Hutton MCH (RBC) [Entitic mass] 29.5 pg Normal 26.7-34.0 [facility] Comment on above: Performed By: #### C BC #### [facility] [address] [place] [address] Dr. Jame Hutton MCHC (RBC) [Mass/Vol] 34.0 g/dL Normal 29.9-35.2 [facility] Comment on above: Performed By: #### C BC #### [facility] [address] [place] [address] Dr. Jame Hutton MCV (RBC) [Entitic vol] 86.8 fL Normal 81.0-99.0 [facility] Comment on above: Performed By: #### C BC #### [facility] [address] [place] [address] Dr. Jame Hutton MONO # 0.4 103/ul Normal 0.3-0.8 [facility] Comment on above: Performed By: #### C BC #### [facility] [address] [place] [address] Dr. Jame Hutton Monocytes/100 WBC (Bld) 5.8 % Normal 1.7-12.0 [facility] Comment on above: Performed By: #### C BC #### [facility] [address] [place] [address] Dr. Jame Hutton NEUT # 5.0 103/ul Normal 1.4-6.5 [facility] Comment on above: Performed By: #### C BC #### [facility] [address] [place] [address] Dr. Jame Hutton Neutrophils/100 WBC (Bld) 69.2 % Normal 43.0-75.0 [facility] Comment on above: Performed By: #### C BC #### [facility] [address] [address] [address] Jame Hutton Platelet mean volume (Bld) [Entitic vol] 11.5 fL Normal 9.5-13.5 [facility] Comment on above: Performed By: #### C BC #### [facility] [address] [address] [address] Jame Hutton PLT 250 103/ul Normal 150-450 [facility] Comment on above: Performed By: #### C BC #### [facility] [address] [address] [address] Jame Hutton RBC 5.01 106/ul Normal 4.20-5.40 [facility] Comment on above: Performed By: #### C BC #### [facility] [address] [place] [address] Dr. Jame Hutton WBC 7.3 103/ul Normal 4.0-11.0 [facility] Comment on above: Performed By: #### C BC #### [facility] [address] [place] [address] Dr. Jame Hutton GLYCOHEMOGLOBIN A1Con 2021 ADA RECOMMENDATION SEE BELOW Normal [facility] Comment on above: Result Comment: ADA RECOMMENDED LIMIT 4.0 - 6.0 ADA THERAPEUTIC TARGET < 7.0 ACTION SUGGESTED > 7.0 Performed By: #### A 1C #### [facility] [address] [place] [address] Dr. Jame Hutton Glucose [Mass/Vol] 94 mg/dL Normal [facility] Comment on above: Performed By: #### A 1C #### [facility] [address] [place] [address] Dr. Jame Hutton HbA1c (Bld) [Mass fraction] 4.9 % Normal 4.5-6.2 [facility] Comment on above: Performed By: #### A 1C #### [facility] [address] [place] [address] Dr. Jame Hutton LIPID PROFILEon 02-01-2022 CHOL-HDL RATIO NORM SEE BELOW Normal [facility] Comment on above: Result Comment: 3.3 - 4.4 LOW RISK 4.4 - 7.1 AVERAGE RISK 7.1 - 11.0 MODERATE RISK >11.0 HIGH RISK Performed By: #### B MP, LIPID, TSH, LIVER #### [facility] [address] [place] [address] Dr. Jame Hutton Cholesterol [Mass/Vol] 182 mg/dL Normal <=200 [facility] Comment on above: Performed By: #### B MP, LIPID, TSH, LIVER #### [facility] [address] [place] [address] Dr. Jame Hutton Cholesterol in HDL [Mass/Vol] 41 mg/dL Normal 40-60 [facility] Comment on above: Performed By: #### B MP, LIPID, TSH, LIVER #### [facility] [address] [place] [address] Dr. Jame Hutton Cholesterol in LDL [Mass/Vol] 102.6 mg/dL Normal [facility] Comment on above: Performed By: #### B MP, LIPID, TSH, LIVER #### [facility] [address] [place] [address] Dr. Jame Hutton Cholesterol.total/Cho lesterol in HDL [Mass ratio] 4.4 {ratio} Normal [facility] Comment on above: Performed By: #### B MP, LIPID, TSH, LIVER #### [facility] [address] [place] [address] Dr. Jame Hutton HDL NORMAL > or = 60 mg/dl - LO W CARDIOVASCULAR RISK <40 mg/dl - HIGH CARDIOVASCULAR RISK Normal [facility] Comment on above: Performed By: #### B MP, LIPID, TSH, LIVER #### [facility] [address] [place] [address] Dr. Jame Hutton LDL CALC NORMAL SEE BELOW Normal [facility] Comment on above: Result Comment: <100 mg/dl OPTIMAL 100 - 129 mg/dl NEAR OR ABOVE OPTIMAL 130 - 159 mg/dl BORDERLINE HIGH 160 - 189 mg/dl HIGH >190 mg/dl VERY HIGH Performed By: #### B MP, LIPID, TSH, LIVER #### [facility] [address] [place] [address] Dr. Jame Hutton Triglyceride [Mass/Vol] 192 mg/dL Critically high <=150 [facility] Comment on above: Performed By: #### B MP, LIPID, TSH, LIVER #### [facility] [address] [place] [address] Dr. Jame Hutton VLDL CALC 38.4 mg/dL Normal [facility] Comment on above: Performed By: #### B MP, LIPID, TSH, LIVER #### [facility] [address] [place] [address] Dr. Jame Hutton LIVER PROFILEon 02-01-2022 Albumin [Mass/Vol] 4.5 g/dL Normal 3.4-5.0 [facility] Comment on above: Performed By: #### B MP, LIPID, TSH, LIVER #### [facility] [address] [place] [address] Dr. Jame Hutton Albumin/Globulin [Mass ratio] 1.3 {ratio} Normal [facility] Comment on above: Performed By: #### B MP, LIPID, TSH, LIVER #### [facility] [address] [place] [address] Dr. Jame Hutton ALP [Catalytic activity/Vol] 96 U/L Normal 46-116 [facility] Comment on above: Performed By: #### B MP, LIPID, TSH, LIVER #### [facility] [address] [place] [address] Dr. Jame Hutton ALT [Catalytic activity/Vol] 35 U/L Normal 14-59 [facility] Comment on above: Performed By: #### B MP, LIPID, TSH, LIVER #### [facility] [address] [place] [address] Dr. Jame Hutton AST [Catalytic activity/Vol] 16 U/L Normal 15-37 [facility] Comment on above: Performed By: #### B MP, LIPID, TSH, LIVER #### [facility] [address] [place] [address] Dr. Jame Hutton BILI, CONJUGATED 0.1 mg/dL Normal 0.0-0.2 [facility] Comment on above: Performed By: #### B MP, LIPID, TSH, LIVER #### [facility] [address] [place] [address] Dr. Jame Hutton Bilirubin [Mass/Vol] 0.2 mg/dL Normal 0.2-1.0 [facility] Comment on above: Performed By: #### B MP, LIPID, TSH, LIVER #### [facility] [address] [place] [address] Dr. Jame Hutton Globulin (S) [Mass/Vol] 3.4 g/dL Normal [facility] Comment on above: Performed By: #### B MP, LIPID, TSH, LIVER #### [facility] [address] [place] [address] Dr. Jame Hutton Protein [Mass/Vol] 7.9 g/dL Normal 6.4-8.2 [facility] Comment on above: Performed By: #### B MP, LIPID, TSH, LIVER #### [facility] [address] [place] [address] Dr. Jame Hutton PROF CHEM 8 (BAS METB)on Anion gap [Moles/Vol] 11.6 mmol/L Normal [facility] Comment on above: Performed By: #### B MP, LIPID, TSH, LIVER #### [facility] [address] [place] [address] Dr. Jame Hutton Calcium [Mass/Vol] 9.5 mg/dL Normal 8.5-10.1 [facility] Comment on above: Performed By: #### B MP, LIPID, TSH, LIVER #### [facility] [address] [place] [address] Dr. Jame Hutton Chloride [Moles/Vol] 102 mmol/L Normal 98-107 [facility] Comment on above: Performed By: #### B MP, LIPID, TSH, LIVER #### [facility] [address] [place] [address] Dr. Jame Hutton CO2 [Moles/Vol] 29.3 mmol/L Normal 21.0-32.0 [facility] Comment on above: Performed By: #### B MP, LIPID, TSH, LIVER #### [facility] [address] [place] [address] Dr. Jame Hutton Creatinine [Mass/Vol] 0.73 mg/dL Normal 0.55-1.02 [facility] Comment on above: Performed By: #### B MP, LIPID, TSH, LIVER #### [facility] [address] [address] [address] Jame Hutton EGFR-AF MACANESE >60 Normal >=60 [facility] Comment on above: Performed By: #### B MP, LIPID, TSH, LIVER #### [facility] [address] [address] [address] Jame Hutton EGFR-NON AF MACANESE >60 Normal >=60 [facility] Comment on above: Performed By: #### B MP, LIPID, TSH, LIVER #### [facility] [address] [place] [address] Dr. Jame Hutton Glucose [Mass/Vol] 87 mg/dL Normal 74-106 [facility] Comment on above: Performed By: #### B MP, LIPID, TSH, LIVER #### [facility] [address] [address] [address] Jame Hutton Potassium [Moles/Vol] 3.9 mmol/L Normal 3.5-5.1 [facility] Comment on above: Performed By: #### B MP, LIPID, TSH, LIVER #### [facility] [address] [address] [address] Jame Hutton Sodium [Moles/Vol] 139 mmol/L Normal 136-145 [facility] Comment on above: Performed By: #### B MP, LIPID, TSH, LIVER #### [facility] [address] [address] [address] Jame Hutton Urea nitrogen [Mass/Vol] 11.0 mg/dL Normal 7.0-18.0 [facility] Comment on above: Performed By: #### B MP, LIPID, TSH, LIVER #### [facility] [address] [address] [address] Jame Hutton Urea nitrogen/Creatinine [Mass ratio] 15.1 mg/mg Normal [facility] Comment on above: Performed By: #### B MP, LIPID, TSH, LIVER #### [facility] [address] [address] [address] Jame Hutton TSHon 02-01-2022 TSH 1.696 uIU/mL Normal 0.358-3.740 [facility] Comment on above: Performed By: #### B MP, LIPID, TSH, LIVER #### [facility] [address] [place] [address] Dr. Jame Hutton PAP ACOG PANEL 2: 21 to 29on 12-21-2021 . . Normal [facility] Comment on above: Performed By: #### 4 [id number] #### [facility] [address] [place] [address] Dr. Jame Hutton Age Gdln ACOG Testing - [facility] Comment on above: Performed By: #### 4 [id number] #### [facility] [address] [place] [address] Dr. Jame Hutton DIAGNOSIS: Comment Abnormal [facility] Comment on above: Result Comment: EPIT HELIAL CELL ABNORMALITY. LOW GRADE SQUAMOUS INTRAEPITHELIAL LESION (LSIL). Performed By: #### [id number] #### [facility] [address] [place] [address] Dr. Jame Hutton Electronically signed by: Comment Normal [facility] Comment on above: Result Comment: Yohana Garsia MD, Pathologist Performed By: #### 4 [id number] #### [facility] [address] [place] [address] Dr. Jame Hutton Methodology: Comment Normal [facility] Comment on above: Result Comment: This liquid based ThinPrep(R) pap test was screened with the use of an image guided system. Performed By: #### 4 [id number] #### [facility] [address] [place] [address] Dr. Jame Hutton Note: Comment Normal [facility] Comment on above: Result Comment: The Pap smear is a screening test designed to aid in the detection of premalignant and malignant conditions of the uterine cervix. It is not a diagnostic procedure and should not be used as the sole means of detecting cervical cancer. Both false-positive and false-negative reports do occur. . Performed By: #### 4 [id number] #### [facility] [address] [address] [address] Jame Hutton Pathologist Provided ICD10 Comment Normal [facility] Comment on above: Result Comment: [id number] Performed By: #### 4 [id number] #### [facility] [address] [address] [address] Jame Hutton Performed by: Comment Normal [facility] Comment on above: Result Comment: Linn Kemp, Television Writer (ASCP) Performed By: #### 4 [id number] #### [facility] [address] [address] [address] Jame Hutton Recommendation: Comment Abnormal [facility] Comment on above: Result Comment: Sugg est follow up as clinically appropriate. Performed By: #### 4 [id number] #### [facility] [address] [address] [address] Jame Hutton Reflex Criteria: Comment Normal [facility] Comment on above: Result Comment: The HPV DNA reflex criteria were not met with this specimen result therefore, no HPV testing was performed. . Performed By: #### 4 [id number] #### [facility] [address] [address] [address] Jame Hutton Specimen adequacy: Comment Normal [facility] Comment on above: Result Comment: Sati sfactory for evaluation. Endocervical and/or squamous metaplastic cells (endocervical component) are present. Performed By: #### 4 [id number] #### [facility] [address] [address] [address] Jame Hutton Encounters Encounter Date Encounter Type Care Provider Facility Start: 03-29-2023 End: 03-29-2023 ambulatory GHISLAINE VEGA Not Available Start: 03-15-2023 End: 03-15-2023 ambulatory SHELLY SCHMID Not Available Start: 07-12-2022 End: 07-12-[address] SHELLY SCHMID . Facility: Start: 02-05-2022 Encounter for genera l adult medical examination without abnormal findings DR ANDRE HENAO [facility] Start: 02-01-2022 End: 02-02-[address] ANDRE HENAO Facility:[facility] Start: 02-01-2022 End: 02-02-2022 Encounter for general adult medical examination without abnormal findings DR ANDRE HENAO Facility:[facility] Start: 12-14-2021 End: 12-14-[address] SHELLY SCHMID . Facility:[facility] Payers Date Payer Category Payer Medicaid [id number] 2000 Unknown [id number] [id number] 1998 Unknown [id number] [id number] 1998 Unknown [id number] [id number] 1998 Unknown [id number] 1998 Unknown [id number] 1959 Unknown [id number] Summary Purpose Family History No Family History Records FoundNo Family History Records Found Advance Directives No Advanced Directives Records FoundNo Advanced Directives Records Found Additional Source Comments INFORMATION SOURCE (unrecogn ized section and content) DATE CREATED AUTHOR 07/21/2022 [facility] DATE CREATED AUTHOR AUTHOR'S ORGANIZ ATFARHAN 03/30/2023 [facility] FOR RECORDS PERTAINING TO PATIENTS WHO ARE OR HAVE BEEN ENROLLED IN A CHEMICAL DEPENDENCY/SUBSTANCEABUSE PROGRAM, SOME INFORMATION MAY BE OMITTED. This clinical summary was aggregated from multiple sources. Caution should be exercised in using it in the provision of clinical care. This summary normalizes information from multiple sources, and as a consequence, information in this document may materially change the coding, format and clinical context of patient data. In addition, data may be omitted in some cases. CLINICAL DECISIONS SHOULD BE BASED ON THE PRIMARY CLINICAL RECORDS. [facility] [email or web address] [facility]. provides no warranty or guarantee of the accuracy or completeness of information in this document.
== END 2023-04-16 18:05 | disposition home or self-care (01) ==
LOC: US 18:04
PROVIDERS: PCP Family Medicine; Visit Provider Obstetrics & Gynecology
DX: O26.843 Uterine size-date discrepancy, third trimester (principal); Z3A.32 32 weeks gestation of pregnancy
CPT/HCPCS: 76816

== ENCOUNTER 2023-05-02 07:09 | Outpatient (OUT) | payer BC, OTHER, SELFPAY ==
--- OUTSIDE RECORDS SUMMARY | 2023-05-02 07:10 | XMS_ITS | CCD ---
Author Name Unknown Address [address] [place] [address] Organization [facility] Care Team Providers Care Keno Writer Name Role Phone BINU ., DR BRAVO [...] NADERER, DR ANDRE Shukla Primary Care Unavailable SHELLY SCHMID Attending Unavailable GHISLAINE VEGA Attending Unavailable SHELLY SCHMID Attending Unavailable GHISLAINE VEGA Attending Unavailable Allergies Allergy Classification Reported Allergen(s) Allergy Type Date of Onset Reaction(s) Facility (1 source) Naproxen Drug Allergy 07-02-2019 [facility] Repository Problems Active Problems Problem Classification Problem [...] 21 to 29on 07-20-2022 . . Normal [facility] Comment on above: Performed By: #### [id number] #### [facility] [address] [place] [address] Dr. Jame Hutton Age Gdln ACOG Testing 21-29 Normal [facility] Comment on above: Performed By: #### [id number] #### [facility] [address] [place] [address] Dr. Jame Hutton DIAGNOSIS: Comment Abnormal [facility] Comment on above: Result Comment: EPIT HELIAL CELL ABNORMALITY. LOW GRADE SQUAMOUS INTRAEPITHELIAL LESION (LSIL). Performed By: #### [id number] #### [facility] [address] [place] [address] Dr. Jame Hutton Electronically signed by: Comment Normal [facility] Comment on above: Result Comment: Yohana Garsia MD, Pathologist Performed By: #### [id number] #### [facility] [address] [place] [address] Dr. Jame Hutton Methodology: Comment Normal [facility] Comment on above: Result Comment: This liquid based ThinPrep(R) pap test was screened with the use of an image guided system. Performed By: #### [id number] #### [facility] [address] [place] [address] Dr. Jame Hutton Note: Comment Normal [facility] Comment on above: Result Comment: The Pap smear is a screening test designed to aid in the detection of premalignant and malignant conditions of the uterine cervix. It is not a diagnostic procedure and should not be used as the sole means of detecting cervical cancer. Both false-positive and false-negative reports do occur. . Performed By: #### [id number] #### [facility] [address] [place] [address] Dr. Jame Hutton Pathologist Provided ICD10 Comment Normal [facility] Comment on above: Result Comment: [id number]. [id number] Performed By: #### [id number] #### [facility] [address] [place] [address] Dr. Jame Hutton Performed by: Comment Normal [facility] Comment on above: Result Comment: Shivani Anderson, Batting Machine Operator Insulation (ASCP) Performed By: #### [id number] #### [facility] [address] [place] [address] Dr. Jame Hutton Recommendation: Comment Abnormal [facility] Comment on above: Result Comment: Sugg est follow up as clinically appropriate. Performed By: #### [id number] #### [facility] [address] [place] [address] Dr. Jame Hutton Reflex Criteria: Comment Normal [facility] Comment on above: Result Comment: The HPV DNA reflex criteria were not met with this specimen result therefore, no HPV testing was performed. . Performed By: #### 4 [id number] #### [facility] [address] [place] [address] Dr. Jame Hutton Specimen adequacy: Comment Normal [facility] Comment on above: Result Comment: Sati sfactory for evaluation. Endocervical and/or squamous metaplastic cells (endocervical component) are present. Areas of partially obscuring inflammatory exudate are present. Performed By: #### [id number] #### [facility] [address] [place] [address] Dr. Jame Hutton INSULINon 02-03-2022 Insulin 11.5 uIU/mL Normal 2.6-24.9 [facility] Comment on above: Performed By: #### I NSULIN #### [facility] [address] [place] [address] Dr. Jame Hutton CBC AUTO DIFFon 02-01-2022 BASO # 0.0 103/ul Normal 0.0-0.1 [facility] Comment on above: Performed By: #### C BC #### [facility] [address] [place] [address] Dr. Jame Hutton Basophils/100 WBC (Bld) 0.6 % Normal 0.2-2.0 [facility] Comment on above: Performed By: #### C BC #### [facility] [address] [place] [address] Dr. Jame Hutton EO # 0.1 103/ul Normal 0.0-0.7 [facility] Comment on above: Performed By: #### C BC #### [facility] [address] [place] [address] Dr. Jame Hutton Eosinophils/100 WBC (Bld) 0.8 % Critically low 0.9-7.0 [facility] Comment on above: Performed By: #### C BC #### [facility] [address] [place] [address] Dr. Jame Hutton Erythrocyte distribution width (RBC) [Ratio] 12.5 % Normal 11.0-15.0 [facility] Comment on above: Performed By: #### C BC #### [facility] [address] [place] [address] Dr. Jame Hutton Hematocrit (Bld) [Volume fraction] 43.5 % Normal 36.0-48.0 [facility] Comment on above: Performed By: #### C BC #### [facility] [address] [place] [address] Dr. Jame Hutton Hemoglobin (Bld) [Mass/Vol] 14.8 g/dL Normal 12.0-16.0 [facility] Comment on above: Performed By: #### C BC #### [facility] [address] [place] [address] Dr. Jame Hutton IG # 0.02 10e3/ul Normal 0.00-0.03 [facility] Comment on above: Performed By: #### C BC #### [facility] [address] [place] [address] Dr. Jame Hutton IG % 0.3 % Normal 0.0-0.5 [facility] Comment on above: Performed By: #### C BC #### [facility] [address] [place] [address] Dr. Jame Hutton LYMPH # 1.7 103/ul Normal 1.2-3.8 [facility] Comment on above: Performed By: #### C BC #### [facility] [address] [place] [address] Dr. Jame Hutton Lymphocytes/100 WBC (Bld) 23.3 % Normal 20.5-60.0 [facility] Comment on above: Performed By: #### C BC #### [facility] [address] [place] [address] Dr. Jame Hutton MANUAL DIFF REQ NO Normal [facility] Comment on above: Performed By: #### C BC #### [facility] [address] [place] [address] Dr. Jame Hutton MCH (RBC) [Entitic mass] 29.5 pg Normal 26.7-34.0 [facility] Comment on above: Performed By: #### C BC #### [facility] [address] [place] [address] Dr. Jame Hutton MCHC (RBC) [Mass/Vol] 34.0 g/dL Normal 29.9-35.2 [facility] Comment on above: Performed By: #### C BC #### [facility] [address] [place] [address] Dr. Jame Hutton MCV (RBC) [Entitic vol] 86.8 fL Normal 81.0-99.0 [facility] Comment on above: Performed By: #### C BC #### [facility] [address] [place] [address] Dr. Jame Hutton MONO # 0.4 103/ul Normal 0.3-0.8 [facility] Comment on above: Performed By: #### C BC #### [facility] [address] [place] [address] Dr. Jame Hutton Monocytes/100 WBC (Bld) 5.8 % Normal 1.7-12.0 [facility] Comment on above: Performed By: #### C BC #### [facility] [address] [place] [address] Dr. Jame Hutton NEUT # 5.0 103/ul Normal 1.4-6.5 [facility] Comment on above: Performed By: #### C BC #### [facility] [address] [place] [address] Dr. Jame Hutton Neutrophils/100 WBC (Bld) 69.2 % Normal 43.0-75.0 [facility] Comment on above: Performed By: #### C BC #### [facility] [address] [address] [address] Jame Hutton Platelet mean volume (Bld) [Entitic vol] 11.5 fL Normal 9.5-13.5 [facility] Comment on above: Performed By: #### C BC #### [facility] [address] [address] [address] Jame Hutton PLT 250 103/ul Normal 150-450 [facility] Comment on above: Performed By: #### C BC #### [facility] [address] [place] [address] Dr. Jame Hutton RBC 5.01 106/ul Normal 4.20-5.40 [facility] Comment on above: Performed By: #### C BC #### [facility] [address] [place] [address] Dr. Jame Hutton WBC 7.3 103/ul Normal 4.0-11.0 [facility] Comment on above: Performed By: #### C BC #### [facility] [address] [place] [address] Dr. Jame Hutton GLYCOHEMOGLOBIN A1Con 2021 ADA RECOMMENDATION SEE BELOW Normal [facility] Comment on above: Result Comment: ADA RECOMMENDED LIMIT 4.0 - 6.0 ADA THERAPEUTIC TARGET < 7.0 ACTION SUGGESTED > 7.0 Performed By: #### A 1C #### [facility] [address] [place] [address] Dr. Jame Hutton Glucose [Mass/Vol] 94 mg/dL Normal [facility] Comment on above: Performed By: #### A 1C #### [facility] [address] [place] [address] Dr. Jame Hutton HbA1c (Bld) [Mass fraction] 4.9 % Normal 4.5-6.2 [facility] Comment on above: Performed By: #### A 1C #### [facility] [address] [place] [address] Dr. Jame Hutton LIPID PROFILEon 10-26-2022 CHOL-HDL RATIO NORM SEE BELOW Normal [facility] Comment on above: Result Comment: 3.3 - 4.4 LOW RISK 4.4 - 7.1 AVERAGE RISK 7.1 - 11.0 MODERATE RISK >11.0 HIGH RISK Performed By: #### B MP, LIPID, TSH, LIVER #### [facility] [address] [address] [address] Jame Hutton Cholesterol [Mass/Vol] 182 mg/dL Normal <=200 [facility] Comment on above: Performed By: #### B MP, LIPID, TSH, LIVER #### [facility] [address] [address] [address] Jame Hutton Cholesterol in HDL [Mass/Vol] 41 mg/dL Normal 40-60 [facility] Comment on above: Performed By: #### B MP, LIPID, TSH, LIVER #### [facility] [address] [address] [address] Jame Hutton Cholesterol in LDL [Mass/Vol] 102.6 mg/dL Normal [facility] Comment on above: Performed By: #### B MP, LIPID, TSH, LIVER #### [facility] [address] [address] [address] Jame Hutton Cholesterol.total/Cho lesterol in HDL [Mass ratio] 4.4 {ratio} Normal [facility] Comment on above: Performed By: #### B MP, LIPID, TSH, LIVER #### [facility] [address] [address] [address] Jame Hutton HDL NORMAL > or = 60 mg/dl - LO W CARDIOVASCULAR RISK <40 mg/dl - HIGH CARDIOVASCULAR RISK Normal [facility] Comment on above: Performed By: #### B MP, LIPID, TSH, LIVER #### [facility] [address] [address] [address] Jame Hutton LDL CALC NORMAL SEE BELOW Normal [facility] Comment on above: Result Comment: <100 mg/dl OPTIMAL 100 - 129 mg/dl NEAR OR ABOVE OPTIMAL 130 - 159 mg/dl BORDERLINE HIGH 160 - 189 mg/dl HIGH >190 mg/dl VERY HIGH Performed By: #### B MP, LIPID, TSH, LIVER #### [facility] [address] [address] [address] Jame Hutton Triglyceride [Mass/Vol] 192 mg/dL Critically high <=150 [facility] Comment on above: Performed By: #### B MP, LIPID, TSH, LIVER #### [facility] [address] [address] [address] Jame Hutton VLDL CALC 38.4 mg/dL Normal [facility] Comment on above: Performed By: #### B MP, LIPID, TSH, LIVER #### [facility] [address] [address] [address] Jame Hutton LIVER PROFILEon 02-01-2022 Albumin [Mass/Vol] 4.5 g/dL Normal 3.4-5.0 [facility] Comment on above: Performed By: #### B MP, LIPID, TSH, LIVER #### [facility] [address] [place] [address] Dr. Jame Hutton Albumin/Globulin [Mass ratio] 1.3 {ratio} Normal [facility] Comment on above: Performed By: #### B MP, LIPID, TSH, LIVER #### [facility] [address] [address] [address] Jame Hutton ALP [Catalytic activity/Vol] 96 U/L Normal 46-116 [facility] Comment on above: Performed By: #### B MP, LIPID, TSH, LIVER #### [facility] [address] [address] [address] Jame Hutton ALT [Catalytic activity/Vol] 35 U/L Normal 14-59 [facility] Comment on above: Performed By: #### B MP, LIPID, TSH, LIVER #### [facility] [address] [address] [address] Jame Hutton AST [Catalytic activity/Vol] 16 U/L Normal 15-37 [facility] Comment on above: Performed By: #### B MP, LIPID, TSH, LIVER #### [facility] [address] [address] [address] Jame Hutton BILI, CONJUGATED 0.1 mg/dL Normal 0.0-0.2 [facility] Comment on above: Performed By: #### B MP, LIPID, TSH, LIVER #### [facility] [address] [address] [address] Jame Hutton Bilirubin [Mass/Vol] 0.2 mg/dL Normal 0.2-1.0 [facility] Comment on above: Performed By: #### B MP, LIPID, TSH, LIVER #### [facility] [address] [place] [address] Dr. Jame Hutton Globulin (S) [Mass/Vol] 3.4 g/dL Normal [facility] Comment on above: Performed By: #### B MP, LIPID, TSH, LIVER #### [facility] [address] [place] [address] Dr. Jame Hutton Protein [Mass/Vol] 7.9 g/dL Normal 6.4-8.2 [facility] Comment on above: Performed By: #### B MP, LIPID, TSH, LIVER #### [facility] [address] [place] [address] Dr. Jame Hutton PROF CHEM 8 (BAS METB)on Anion gap [Moles/Vol] 11.6 mmol/L Normal [facility] Comment on above: Performed By: #### B MP, LIPID, TSH, LIVER #### [facility] [address] [place] [address] Dr. Jame Hutton Calcium [Mass/Vol] 9.5 mg/dL Normal 8.5-10.1 [facility] Comment on above: Performed By: #### B MP, LIPID, TSH, LIVER #### [facility] [address] [place] [address] Dr. Jame Hutton Chloride [Moles/Vol] 102 mmol/L Normal 98-107 [facility] Comment on above: Performed By: #### B MP, LIPID, TSH, LIVER #### [facility] [address] [place] [address] Dr. Jame Htuton CO2 [Moles/Vol] 29.3 mmol/L Normal 21.0-32.0 [facility] Comment on above: Performed By: #### B MP, LIPID, TSH, LIVER #### [facility] [address] [address] [address] Jame Hutton Creatinine [Mass/Vol] 0.73 mg/dL Normal 0.55-1.02 [facility] Comment on above: Performed By: #### B MP, LIPID, TSH, LIVER #### [facility] [address] [address] [address] Jame Hutton EGFR-AF SRI LANKAN >60 Normal >=60 [facility] Comment on above: Performed By: #### B MP, LIPID, TSH, LIVER #### [facility] [address] [address] [address] Jame Hutton EGFR-NON AF SRI LANKAN >60 Normal >=60 [facility] Comment on above: Performed By: #### B MP, LIPID, TSH, LIVER #### [facility] [address] [address] [address] Jame Hutton Glucose [Mass/Vol] 87 mg/dL Normal 74-106 [facility] Comment on above: Performed By: #### B MP, LIPID, TSH, LIVER #### [facility] [address] [address] [address] Jame Hutton Potassium [Moles/Vol] 3.9 mmol/L Normal 3.5-5.1 [facility] Comment on above: Performed By: #### B MP, LIPID, TSH, LIVER #### [facility] [address] [address] [address] Jame Hutton Sodium [Moles/Vol] 139 mmol/L Normal 136-145 [facility] Comment on above: Performed By: #### B MP, LIPID, TSH, LIVER #### [facility] [address] [address] [address] Jame Hutton Urea nitrogen [Mass/Vol] 11.0 mg/dL Normal 7.0-18.0 [facility] Comment on above: Performed By: #### B MP, LIPID, TSH, LIVER #### [facility] [address] [address] [address] Jame Hutton Urea nitrogen/Creatinine [Mass ratio] 15.1 mg/mg Normal [facility] Comment on above: Performed By: #### B MP, LIPID, TSH, LIVER #### [facility] [address] [place] [address] Dr. Jame Hutton TSHon 02-01-2022 TSH 1.696 uIU/mL Normal 0.358-3.740 [facility] Comment on above: Performed By: #### B MP, LIPID, TSH, LIVER #### [facility] [address] [place] [address] Dr. Jame Hutton PAP ACOG PANEL 2: 21 to 29on 12-21-2021 . . Normal [facility] Comment on above: Performed By: #### [id number] #### [facility] [address] [place] [address] Dr. Jame Hutton Age Gdln ACOG Testing - [facility] Comment on above: Performed By: #### 4 [id number] #### [facility] [address] [place] [address] Dr. Jame Hutton DIAGNOSIS: Comment Abnormal [facility] Comment on above: Result Comment: EPIT HELIAL CELL ABNORMALITY. LOW GRADE SQUAMOUS INTRAEPITHELIAL LESION (LSIL). Performed By: #### [id number] #### [facility] [address] [place] [address] Dr. Jame Hutton Electronically signed by: Comment Normal [facility] Comment on above: Result Comment: Yohana Garsia MD, Pathologist Performed By: #### 4 [id number] #### [facility] [address] [place] [address] Dr. Jame Hutton Methodology: Comment Normal [facility] Comment on above: Result Comment: This liquid based ThinPrep(R) pap test was screened with the use of an image guided system. Performed By: #### 4 [id number] #### [facility] [address] [place] [address] Dr. Jame Hutton Note: Comment Normal [facility] Comment on above: Result Comment: The Pap smear is a screening test designed to aid in the detection of premalignant and malignant conditions of the uterine cervix. It is not a diagnostic procedure and should not be used as the sole means of detecting cervical cancer. Both false-positive and false-negative reports do occur. . Performed By: #### 4 [id number] #### [facility] [address] [address] [address] Jame Hutton Pathologist Provided ICD10 Comment Normal [facility] Comment on above: Result Comment: [id number]. [id number] Performed By: #### 4 [id number] #### [facility] [address] [address] [address] Jame Hutton Performed by: Comment Normal [facility] Comment on above: Result Comment: Linn Kemp, Batting Machine Operator Insulation (ASCP) Performed By: #### 4 [id number] #### [facility] [address] [place] [address] Dr. Jame Hutton Recommendation: Comment Abnormal [facility] Comment on above: Result Comment: Sugg est follow up as clinically appropriate. Performed By: #### 4 [id number] #### [facility] [address] [place] [address] Dr. Jame Hutton Reflex Criteria: Comment Normal [facility] Comment on above: Result Comment: The HPV DNA reflex criteria were not met with this specimen result therefore, no HPV testing was performed. . Performed By: #### 4 [id number] #### [facility] [address] [place] [address] Dr. Jame Hutton Specimen adequacy: Comment Normal [facility] Comment on above: Result Comment: Sati sfactory for evaluation. Endocervical and/or squamous metaplastic cells (endocervical component) are present. Performed By: #### 4 [id number] #### [facility] [address] [place] [address] Dr. Jame Hutton Encounters Encounter Date Encounter Type Care Provider Facility Start: 04-30-2023 End: 04-30-2023 ambulatory GHISLAINE VEGA Not Available Start: 04-16-2023 End: 04-16-2023 ambulatory SHELLY SCHMID Not Available Start: 03-29-2023 End: 03-29-2023 ambulatory GHISLAINE VEGA Not Available Start: 03-15-2023 End: 03-15-2023 ambulatory SHELLY SCHMID Not Available Start: 07-12-2022 End: 07-12-[address] SHELLY SCHMID . Facility:[facility] Start: 02-05-2022 Encounter for genera l adult medical examination without abnormal findings DR ANDRE HENAO [facility] Start: 02-01-2022 End: 02-02-[address] ANDRE HENAO Facility:[facility] Start: 02-01-2022 End: 02-02-2022 Encounter for general adult medical examination without abnormal findings DR ANDRE HENAO Facility:[facility] Start: 12-14-2021 End: 12-14-[address] SHELLY SCHMID . Facility:[facility] Payers Date Payer Category Payer Medicaid [id number] 2000 Unknown [id number] 2.16.84 [id number] 1998 Unknown [id number] 2.16.84 [id number] 1998 Unknown [id number] 2.16.84 [id number] 1998 Unknown [id number] 2.16.84 [id number] 1998 Unknown [id number] 2.16.84 [id number] 1998 Unknown [id number] [id number] 1998 Unknown [id number] [id number] 1959 Unknown [id number] Summary Purpose Family History No Family History Records FoundNo Family History Records Found Advance Directives No Advanced Directives Records FoundNo Advanced Directives Records Found Additional Source Comments INFORMATION SOURCE (unrecogn ized section and content) DATE CREATED AUTHOR 07/21/2022 [facility] DATE CREATED AUTHOR 'S ORGANIZ ATFARHAN 05/01/2023 [facility] EPIC FOR RECORDS PERTAINING TO PATIENTS WHO ARE [...] BE BASED ON THE PRIMARY CLINICAL RECORDS. [facility], [facility]. provides no warranty or guarantee of the accuracy or completeness of information in this document.
--- NOTE | 2023-05-02 17:31 | US_ITS ---
[address] [address] Patient Name: PAPITO BOSS MRN: [id number] date: 2000 Sex: F Assigned Patient Location: US Current Patient Location: US Accession/Order Number: [id number] Exam Date: 05/02/2023 17:32 Report Date: 05/03/2023 06:50 At the request of: GHISLAINE VEGA Procedure: US OB BPP w non-stress EXAMINATION: US OB BPP w non-stress HISTORY: GESTATIONAL DIABETES COMPARISON: Ultrasound OB growth 04/16/2023 TECHNIQUE: Ultrasound biophysical profile was performed in the radiology department. BREATHING MOVEMENTS: 2.0 GROSS BODY MOVEMENTS: 2.0 TONE: 2.0 QUALITATIVE AMNIOTIC FLUID VOLUME: 2.0 PRESENTATION: BREECH HEART RATE: 133.7 bpm bpm. AMNIOTIC FLUID VOLUME: 11.3 cm GESTATIONAL AGE: 34 weeks 4 days CONCLUSION: Total biophysical profile score 8.0. Electronically authenticated by: SAUL HOBBS Date: 05/03/2023 06:50
== END 2023-05-02 18:30 | disposition home or self-care (01) ==
LOC: US 07:09 → FBC 18:28
PROVIDERS: PCP Family Medicine; Visit Provider Obstetrics & Gynecology
DX: O24.419 Gestational diabetes mellitus in pregnancy, unspecified control (principal); Z3A.34 34 weeks gestation of pregnancy
CPT/HCPCS: 76818

== ENCOUNTER 2023-05-05 00:18 | Outpatient (OUT) | payer BC, OTHER, SELFPAY ==
--- OUTSIDE RECORDS SUMMARY | 2023-05-05 00:21 | XMS_ITS | CCD ---
Author Name Unknown Address [address] [place] [address] Organization [facility] Care Team Providers Care Inspector Penetrant Name Role Phone BINU ., DR BRAVO [...] (1 source) Naproxen Drug Allergy 07-02-2019 [facility] Repository Problems Active Problems Problem Classification Problem [...] 21 to 29on 07-20-2022 . . Normal [facility] Comment on above: Performed By: #### [id number] #### [facility] [address] [place] [address] Dr. Jame Hutton Age Gdln ACOG Testing 21-29 Normal [facility] Comment on above: Performed By: #### 4 [id number] #### [facility] [address] [place] [address] Dr. Jame Hutton DIAGNOSIS: Comment Abnormal [facility] Comment on above: Result Comment: EPIT HELIAL CELL ABNORMALITY. LOW GRADE SQUAMOUS INTRAEPITHELIAL LESION (LSIL). Performed By: #### [id number] #### [facility] [address] [place] [address] Dr. Jame Hutton Electronically signed by: Comment Normal [facility] Comment on above: Result Comment: Yohana Garsia MD, Pathologist Performed By: #### 4 [id number] #### [facility] [address] [place] [address] Dr. Jame Hutton Methodology: Comment Normal [facility] Comment on above: Result Comment: This liquid based ThinPrep(R) pap test was screened with the use of an image guided system. Performed By: #### 4 [id number] #### [facility] [address] [place] [address] Dr. Jame Hutton Note: Comment Normal [facility] Comment on above: Result Comment: The Pap smear is a screening test designed to aid in the detection of premalignant and malignant conditions of the uterine cervix. It is not a diagnostic procedure and should not be used as the sole means of detecting cervical cancer. Both false-positive and false-negative reports do occur. . Performed By: #### 4 [id number] #### [facility] [address] [place] [address] Dr. Jame Hutton Pathologist Provided ICD10 Comment Normal [facility] Comment on above: Result Comment: R87. [id number] Performed By: #### 4 [id number] #### [facility] [address] [place] [address] Dr. Jame Hutton Performed by: Comment Normal [facility] Comment on above: Result Comment: Shivani Anderson, Sheet Metal Helper (ASCP) Performed By: #### 4 [id number] #### [facility] [address] [place] [address] Dr. Jame Hutton Recommendation: Comment Abnormal [facility] Comment on above: Result Comment: Sugg est follow up as clinically appropriate. Performed By: #### 4 [id number] #### [facility] [address] [place] [address] Dr. Jame Hutton Reflex Criteria: Comment Normal [facility] Comment on above: Result Comment: The HPV DNA reflex criteria were not met with this specimen result therefore, no HPV testing was performed. . Performed By: #### 4 [id number] #### [facility] [address] [place] [address] Dr. Jame Hutton Specimen adequacy: Comment Normal [facility] Comment on above: Result Comment: Sati sfactory for evaluation. Endocervical and/or squamous metaplastic cells (endocervical component) are present. Areas of partially obscuring inflammatory exudate are present. Performed By: #### 4 [id number] #### [facility] [address] [place] [address] Dr. Jame Hutton INSULINon 02-03-2022 Insulin 11.5 uIU/mL Normal 2.6-24.9 [facility] Comment on above: Performed By: #### I NSULIN #### [facility] [address] [place] [address] Dr. Jame Hutton CBC AUTO DIFFon 02-01-2022 BASO # 0.0 103/ul Normal 0.0-0.1 [facility] Comment on above: Performed By: #### C BC #### [facility] [address] [place] [address] Dr. Jame Hutton Basophils/100 WBC (Bld) 0.6 % Normal 0.2-2.0 [facility] Comment on above: Performed By: #### C BC #### [facility] [address] [place] [address] Dr. Jame Hutton EO # 0.1 103/ul Normal 0.0-0.7 [facility] Comment on above: Performed By: #### C BC #### [facility] [address] [place] [address] Dr. Jame Hutton Eosinophils/100 WBC (Bld) 0.8 % Critically low 0.9-7.0 [facility] Comment on above: Performed By: #### C BC #### [facility] [address] [place] [address] Dr. Jame Hutton Erythrocyte distribution width (RBC) [Ratio] 12.5 % Normal 11.0-15.0 [facility] Comment on above: Performed By: #### C BC #### [facility] [address] [place] [address] Dr. Jame Hutton Hematocrit (Bld) [Volume fraction] 43.5 % Normal 36.0-48.0 [facility] Comment on above: Performed By: #### C BC #### [facility] [address] [place] [address] Dr. Jame Hutton Hemoglobin (Bld) [Mass/Vol] 14.8 g/dL Normal 12.0-16.0 [facility] Comment on above: Performed By: #### C BC #### [facility] [address] [place] [address] Dr. Jame Hutton IG # 0.02 10e3/ul Normal 0.00-0.03 [facility] Comment on above: Performed By: #### C BC #### [facility] [address] [place] [address] Dr. Jame Hutton IG % 0.3 % Normal 0.0-0.5 [facility] Comment on above: Performed By: #### C BC #### [facility] [address] [place] [address] Dr. Jame Hutton LYMPH # 1.7 103/ul Normal 1.2-3.8 [facility] Comment on above: Performed By: #### C BC #### [facility] [address] [place] [address] Dr. Jame Hutton Lymphocytes/100 WBC (Bld) 23.3 % Normal 20.5-60.0 [facility] Comment on above: Performed By: #### C BC #### [facility] [address] [place] [address] Dr. Jame Hutton MANUAL DIFF REQ NO Normal [facility] Comment on above: Performed By: #### C BC #### [facility] [address] [place] [address] Dr. Jame Hutton MCH (RBC) [Entitic mass] 29.5 pg Normal 26.7-34.0 [facility] Comment on above: Performed By: #### C BC #### [facility] [address] [place] [address] Dr. Jame Hutton MCHC (RBC) [Mass/Vol] 34.0 g/dL Normal 29.9-35.2 [facility] Comment on above: Performed By: #### C BC #### [facility] [address] [place] [address] Dr. Jame Hutton MCV (RBC) [Entitic vol] 86.8 fL Normal 81.0-99.0 [facility] Comment on above: Performed By: #### C BC #### [facility] [address] [place] [address] Dr. Jame Hutton MONO # 0.4 103/ul Normal 0.3-0.8 [facility] Comment on above: Performed By: #### C BC #### [facility] [address] [place] [address] Dr. Jame Hutton Monocytes/100 WBC (Bld) 5.8 % Normal 1.7-12.0 [facility] Comment on above: Performed By: #### C BC #### [facility] [address] [place] [address] Dr. Jame Hutton NEUT # 5.0 103/ul Normal 1.4-6.5 [facility] Comment on above: Performed By: #### C BC #### [facility] [address] [place] [address] Dr. Jame Hutton Neutrophils/100 WBC (Bld) 69.2 % Normal 43.0-75.0 [facility] Comment on above: Performed By: #### C BC #### [facility] [address] [address] [address] Jame Hutton Platelet mean volume (Bld) [Entitic vol] 11.5 fL Normal 9.5-13.5 [facility] Comment on above: Performed By: #### C BC #### [facility] [address] [address] [address] Jame Hutton PLT 250 103/ul Normal 150-450 [facility] Comment on above: Performed By: #### C BC #### [facility] [address] [place] [address] Dr. Jame Hutton RBC 5.01 106/ul Normal 4.20-5.40 [facility] Comment on above: Performed By: #### C BC #### [facility] [address] [place] [address] Dr. Jame Hutton WBC 7.3 103/ul Normal 4.0-11.0 [facility] Comment on above: Performed By: #### C BC #### [facility] [address] [place] [address] Dr. Jame Hutton GLYCOHEMOGLOBIN A1Con 2021 ADA RECOMMENDATION SEE BELOW Normal [facility] Comment on above: Result Comment: ADA RECOMMENDED LIMIT 4.0 - 6.0 ADA THERAPEUTIC TARGET < 7.0 ACTION SUGGESTED > 7.0 Performed By: #### A 1C #### [facility] [address] [place] [address] Dr. Jame Hutton Glucose [Mass/Vol] 94 mg/dL Normal [facility] Comment on above: Performed By: #### A 1C #### [facility] [address] [place] [address] Dr. Jame Hutton HbA1c (Bld) [Mass fraction] 4.9 % Normal 4.5-6.2 [facility] Comment on above: Performed By: #### A 1C #### [facility] [address] [place] [address] Dr. Jame Hutton LIPID PROFILEon 10-26-2022 CHOL-HDL RATIO NORM SEE BELOW Normal [facility] Comment on above: Result Comment: 3.3 - 4.4 LOW RISK 4.4 - 7.1 AVERAGE RISK 7.1 - 11.0 MODERATE RISK >11.0 HIGH RISK Performed By: #### B MP, LIPID, TSH, LIVER #### [facility] [address] [address] [address] Jame Hutton Cholesterol [Mass/Vol] 182 mg/dL Normal <=200 [facility] Comment on above: Performed By: #### B MP, LIPID, TSH, LIVER #### [facility] [address] [address] [address] Jame Hutton Cholesterol in HDL [Mass/Vol] 41 mg/dL Normal 40-60 [facility] Comment on above: Performed By: #### B MP, LIPID, TSH, LIVER #### [facility] [address] [address] [address] Jame Hutton Cholesterol in LDL [Mass/Vol] 102.6 mg/dL Normal [facility] Comment on above: Performed By: #### B MP, LIPID, TSH, LIVER #### [facility] [address] [address] [address] Jame Hutton Cholesterol.total/Cho lesterol in HDL [Mass ratio] 4.4 {ratio} Normal [facility] Comment on above: Performed By: #### B MP, LIPID, TSH, LIVER #### [facility] [address] [address] [address] Jame Hutton HDL NORMAL > or = 60 mg/dl - LO W CARDIOVASCULAR RISK <40 mg/dl - HIGH CARDIOVASCULAR RISK Normal [facility] Comment on above: Performed By: #### B MP, LIPID, TSH, LIVER #### [facility] [address] [address] [address] Jame Hutton LDL CALC NORMAL SEE BELOW Normal [facility] Comment on above: Result Comment: <100 mg/dl OPTIMAL 100 - 129 mg/dl NEAR OR ABOVE OPTIMAL 130 - 159 mg/dl BORDERLINE HIGH 160 - 189 mg/dl HIGH >190 mg/dl VERY HIGH Performed By: #### B MP, LIPID, TSH, LIVER #### [facility] [address] [address] [address] Jame Hutton Triglyceride [Mass/Vol] 192 mg/dL Critically high <=150 [facility] Comment on above: Performed By: #### B MP, LIPID, TSH, LIVER #### [facility] [address] [address] [address] Jame Hutton VLDL CALC 38.4 mg/dL Normal [facility] Comment on above: Performed By: #### B MP, LIPID, TSH, LIVER #### [facility] [address] [address] [address] Jame Hutton LIVER PROFILEon 02-01-2022 Albumin [Mass/Vol] 4.5 g/dL Normal 3.4-5.0 [facility] Comment on above: Performed By: #### B MP, LIPID, TSH, LIVER #### [facility] [address] [place] [address] Dr. Jame Hutton Albumin/Globulin [Mass ratio] 1.3 {ratio} Normal [facility] Comment on above: Performed By: #### B MP, LIPID, TSH, LIVER #### [facility] [address] [address] [address] Jame Hutton ALP [Catalytic activity/Vol] 96 U/L Normal 46-116 [facility] Comment on above: Performed By: #### B MP, LIPID, TSH, LIVER #### [facility] [address] [address] [address] Jame Hutton ALT [Catalytic activity/Vol] 35 U/L Normal 14-59 [facility] Comment on above: Performed By: #### B MP, LIPID, TSH, LIVER #### [facility] [address] [address] [address] Jame Hutton AST [Catalytic activity/Vol] 16 U/L Normal 15-37 [facility] Comment on above: Performed By: #### B MP, LIPID, TSH, LIVER #### [facility] [address] [address] [address] Jame Hutton BILI, CONJUGATED 0.1 mg/dL Normal 0.0-0.2 [facility] Comment on above: Performed By: #### B MP, LIPID, TSH, LIVER #### [facility] [address] [address] [address] Jame Hutton Bilirubin [Mass/Vol] 0.2 mg/dL Normal 0.2-1.0 [facility] Comment on above: Performed By: #### B MP, LIPID, TSH, LIVER #### [facility] [address] [place] [address] Dr. Jame Hutton Globulin (S) [Mass/Vol] 3.4 g/dL Normal [facility] Comment on above: Performed By: #### B MP, LIPID, TSH, LIVER #### [facility] [address] [place] [address] Dr. Jame Hutton Protein [Mass/Vol] 7.9 g/dL Normal 6.4-8.2 [facility] Comment on above: Performed By: #### B MP, LIPID, TSH, LIVER #### [facility] [address] [place] [address] Dr. Jame Hutton PROF CHEM 8 (BAS METB)on Anion gap [Moles/Vol] 11.6 mmol/L Normal [facility] Comment on above: Performed By: #### B MP, LIPID, TSH, LIVER #### [facility] [address] [place] [address] Dr. Jame Hutton Calcium [Mass/Vol] 9.5 mg/dL Normal 8.5-10.1 [facility] Comment on above: Performed By: #### B MP, LIPID, TSH, LIVER #### [facility] [address] [place] [address] Dr. Jame Hutton Chloride [Moles/Vol] 102 mmol/L Normal 98-107 [facility] Comment on above: Performed By: #### B MP, LIPID, TSH, LIVER #### [facility] [address] [place] [address] Dr. Jame Hutton CO2 [Moles/Vol] 29.3 mmol/L Normal 21.0-32.0 [facility] Comment on above: Performed By: #### B MP, LIPID, TSH, LIVER #### [facility] [address] [address] [address] Jame Hutton Creatinine [Mass/Vol] 0.73 mg/dL Normal 0.55-1.02 [facility] Comment on above: Performed By: #### B MP, LIPID, TSH, LIVER #### [facility] [address] [address] [address] Jame Hutton EGFR-AF ARGENTINE >60 Normal >=60 [facility] Comment on above: Performed By: #### B MP, LIPID, TSH, LIVER #### [facility] [address] [address] [address] Jame Hutton EGFR-NON AF ARGENTINE >60 Normal >=60 [facility] Comment on above: Performed By: #### B MP, LIPID, TSH, LIVER #### [facility] [address] [address] [address] Jame Hutton Glucose [Mass/Vol] 87 mg/dL Normal 74-106 [facility] Comment on above: Performed By: #### B MP, LIPID, TSH, LIVER #### [facility] [address] [address] [address] Jame Hutton Potassium [Moles/Vol] 3.9 mmol/L Normal 3.5-5.1 [facility] Comment on above: Performed By: #### B MP, LIPID, TSH, LIVER #### [facility] [address] [address] [address] Jame Hutton Sodium [Moles/Vol] 139 mmol/L Normal 136-145 [facility] Comment on above: Performed By: #### B MP, LIPID, TSH, LIVER #### [facility] [address] [address] [address] Jame Hutton Urea nitrogen [Mass/Vol] 11.0 mg/dL Normal 7.0-18.0 [facility] Comment on above: Performed By: #### B MP, LIPID, TSH, LIVER #### [facility] [address] [address] [address] Jame Hutton Urea nitrogen/Creatinine [Mass ratio] 15.1 mg/mg Normal [facility] Comment on above: Performed By: #### B MP, LIPID, TSH, LIVER #### [facility] [address] [place] [address] Dr. Jame Hutton TSHon 02-01-2022 TSH 1.696 uIU/mL Normal 0.358-3.740 [facility] Comment on above: Performed By: #### B MP, LIPID, TSH, LIVER #### [facility] [address] [place] [address] Dr. Jame Hutton PAP ACOG PANEL 2: 21 to 29on 12-21-2021 . . Normal [facility] Comment on above: Performed By: #### 4 [id number] #### [facility] [address] [place] [address] Dr. Jame Hutton Age Gdln ACOG Testing - [facility] Comment on above: Performed By: #### 4 [id number] #### [facility] [address] [place] [address] Dr. Jame Hutton DIAGNOSIS: Comment Abnormal [facility] Comment on above: Result Comment: EPIT HELIAL CELL ABNORMALITY. LOW GRADE SQUAMOUS INTRAEPITHELIAL LESION (LSIL). Performed By: #### 4 [id number] #### [facility] [address] [place] [address] Dr. Jame Hutton Electronically signed by: Comment Normal [facility] Comment on above: Result Comment: Yohana Garsia MD, Pathologist Performed By: #### 4 [id number] #### [facility] [address] [place] [address] Dr. Jame Hutton Methodology: Comment Normal [facility] Comment on above: Result Comment: This liquid based ThinPrep(R) pap test was screened with the use of an image guided system. Performed By: #### 4 [id number] #### [facility] [address] [place] [address] Dr. Jame Hutton Note: Comment Normal [facility] Comment on above: Result Comment: The Pap smear is a screening test designed to aid in the detection of premalignant and malignant conditions of the uterine cervix. It is not a diagnostic procedure and should not be used as the sole means of detecting cervical cancer. Both false-positive and false-negative reports do occur. . Performed By: #### 4 [id number] #### [facility] [address] [address] [address] Jame Hutton Pathologist Provided ICD10 Comment Normal [facility] Comment on above: Result Comment: R87. [id number] Performed By: #### 4 [id number] #### [facility] [address] [address] [address] Jame Hutton Performed by: Comment Normal [facility] Comment on above: Result Comment: Linn Kemp, Sheet Metal Helper (ASCP) Performed By: #### 4 [id number] #### [facility] [address] [place] [address] Dr. Jame Hutton Recommendation: Comment Abnormal [facility] Comment on above: Result Comment: Sugg est follow up as clinically appropriate. Performed By: #### 4 [id number] #### [facility] [address] [place] [address] Dr. Jame Hutton Reflex Criteria: Comment Normal [facility] Comment on above: Result Comment: The HPV DNA reflex criteria were not met with this specimen result therefore, no HPV testing was performed. . Performed By: #### 4 [id number] #### [facility] [address] [place] [address] Dr. Jame Hutton Specimen adequacy: Comment Normal [facility] Comment on above: Result Comment: Sati sfactory for evaluation. Endocervical and/or squamous metaplastic cells (endocervical component) are present. Performed By: #### 4 [id number] #### [facility] [address] [place] [address] Dr. Jame Hutton Encounters Encounter Date Encounter [...] without abnormal findings DR ANDRE HENAO [facility] Start: 02-01-2022 End: 02-02-[address] ANDRE HENAO Facility:[facility] Start: 02-01-2022 End: 02-02-2022 Encounter for general adult medical examination without abnormal findings DR ANDRE HENAO Facility:[facility] Start: 12-14-2021 End: 12-14-[address] SHELLY SCHMID . Facility[facility] Payers Date Payer Category Payer Medicaid [id number] 2000 Unknown [id number] 2.16.84 [id number] 2000 Unknown [id number] 2.16.84 [id number] 2000 Unknown [id number] 2.16.84 [id number] 2000 Unknown [id number] 2.16.84 [id number] 2000 Unknown [id number] 2.16.84 [id number] 1998 Unknown [id number] [id number] 1998 Unknown [id number] 2.16.840 [id number] 1961 Unknown [id number] Summary Purpose Family History No Family History Records FoundNo Family History Records Found Advance Directives No Advanced Directives Records FoundNo Advanced Directives Records Found Additional Source Comments INFORMATION SOURCE (unrecogn ized section and content) DATE CREATED AUTHOR 07/21/2022 [facility] DATE CREATED AUTHOR 'S ORGANIZ ATFARHAN 05/01/2023 [facility] EPIC FOR RECORDS PERTAINING [...] BE BASED ON THE PRIMARY CLINICAL RECORDS. [facility]. provides no warranty or guarantee of the accuracy or completeness of information in this document.
[2023-05-05 09:05] VITALS: BP 140/76; PULSE 112
[2023-05-05 09:31] VITALS: BP 126/69; PULSE 110
== END 2023-05-05 09:38 | disposition home or self-care (01) ==
LOC: FBCO 00:18 → FBC 09:01
PROVIDERS: PCP Family Medicine; Visit Provider Obstetrics & Gynecology
DX: O24.419 Gestational diabetes mellitus in pregnancy, unspecified control (principal); Z3A.35 35 weeks gestation of pregnancy
CPT/HCPCS: 59025

== ENCOUNTER 2023-05-09 07:14 | Outpatient (OUT) | payer BC, OTHER, SELFPAY ==
--- OUTSIDE RECORDS SUMMARY | 2023-05-09 07:16 | XMS_ITS | CCD ---
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 . Normal [facility] Comment on above: Performed By: #### [id number] #### [facility] [address] [place] [address] Dr. Jame Hutton Age Gdln ACOG Testing 21-29 Normal [facility] Comment on above: Performed By: #### 4 [id number] #### [facility] [address] [place] [address] Dr. Jame Hutton DIAGNOSIS: Comment Abnormal [facility] Comment on above: Result Comment: EPIT HELIAL CELL ABNORMALITY. LOW GRADE SQUAMOUS INTRAEPITHELIAL LESION (LSIL). Performed By: #### [id number] #### [facility] [address] [place] [address] Dr. Jame Hutton Electronically signed by: Comment Normal [facility] Comment on above: Result Comment: Yohana Garsia MD, Pathologist Performed By: #### 4 [id number] #### [facility] [address] [place] [address] Dr. Jame Hutton Methodology: Comment Normal [facility] Comment on above: Result Comment: This liquid based ThinPrep(R) pap test was screened with the use of an image guided system. Performed By: #### 4 [id number] #### [facility] [address] [place] [address] Dr. Jame Hutton Note: Comment Normal [facility] Comment on above: Result Comment: The Pap smear is a screening test designed to aid in the detection of premalignant and malignant conditions of the uterine cervix. It is not a diagnostic procedure and should not be used as the sole means of detecting cervical cancer. Both false-positive and false-negative reports do occur. . Performed By: #### 4 [id number] #### [facility] [address] [place] [address] Dr. Jame Hutton Pathologist Provided ICD10 Comment Normal [facility] Comment on above: Result Comment: R87. 612 Performed By: #### 4 [id number] #### [facility] [address] [place] [address] Dr. Jame Hutton Performed by: Comment Normal [facility] Comment on above: Result Comment: Shivani Anderson, Supervisor Webbing (ASCP) Performed By: #### 4 [id number] #### [facility] [address] [place] [address] Dr. Jame Hutton Recommendation: Comment Abnormal [facility] Comment on above: Result Comment: Sugg est follow up as clinically appropriate. Performed By: #### 4 [id number] #### [facility] [address] [place] [address] Dr. Jame Hutton Reflex Criteria: Comment Normal [facility] Comment on above: Result Comment: The HPV DNA reflex criteria were not met with this specimen result therefore, no HPV testing was performed. . Performed By: #### 4 [id number] #### [facility] [address] [place] [address] Dr. Jame Hutton Specimen adequacy: Comment Normal [facility] Comment on above: Result Comment: Sati sfactory for evaluation. Endocervical and/or squamous metaplastic cells (endocervical component) are present. Areas of partially obscuring inflammatory exudate are present. Performed By: #### 4 [id number] #### [facility] [address] [place] [address] Dr. Jame Hutton INSULINon 02-03-2022 Insulin 11.5 uIU/mL Normal 2.6-24.9 [facility] Comment on above: Performed By: #### I NSULIN #### [facility] [address] [place] [address] Dr. Jame Hutton CBC AUTO DIFFon 02-01-2022 BASO # 0.0 103/ul Normal 0.0-0.1 [facility] Comment on above: Performed By: #### C BC #### [facility] [address] [place] [address] Dr. Jame Hutton Basophils/100 WBC (Bld) 0.6 % Normal 0.2-2.0 [facility] Comment on above: Performed By: #### C BC #### [facility] [address] [place] [address] Dr. Jame Hutton EO # 0.1 103/ul Normal 0.0-0.7 [facility] Comment on above: Performed By: #### C BC #### [facility] [address] [place] [address] Dr. Jame Hutton Eosinophils/100 WBC (Bld) 0.8 % Critically low 0.9-7.0 [facility] Comment on above: Performed By: #### C BC #### [facility] [address] [place] [address] Dr. Jame Hutton Erythrocyte distribution width (RBC) [Ratio] 12.5 % Normal 11.0-15.0 [facility] Comment on above: Performed By: #### C BC #### [facility] [address] [place] [address] Dr. Jame Hutton Hematocrit (Bld) [Volume fraction] 43.5 % Normal 36.0-48.0 [facility] Comment on above: Performed By: #### C BC #### [facility] [address] [place] [address] Dr. Jame Hutton Hemoglobin (Bld) [Mass/Vol] 14.8 g/dL Normal 12.0-16.0 [facility] Comment on above: Performed By: #### C BC #### [facility] [address] [place] [address] Dr. Jame Hutton IG # 0.02 10e3/ul Normal 0.00-0.03 [facility] Comment on above: Performed By: #### C BC #### [facility] [address] [place] [address] Dr. Jame Hutton IG % 0.3 % Normal 0.0-0.5 [facility] Comment on above: Performed By: #### C BC #### [facility] [address] [place] [address] Dr. Jame Hutton LYMPH # 1.7 103/ul Normal 1.2-3.8 [facility] Comment on above: Performed By: #### C BC #### [facility] [address] [place] [address] Dr. Jame Hutton Lymphocytes/100 WBC (Bld) 23.3 % Normal 20.5-60.0 [facility] Comment on above: Performed By: #### C BC #### [facility] [address] [place] [address] Dr. Jame Hutton MANUAL DIFF REQ NO Normal [facility] Comment on above: Performed By: #### C BC #### [facility] [address] [place] [address] Dr. Jame Hutton MCH (RBC) [Entitic mass] 29.5 pg Normal 26.7-34.0 [facility] Comment on above: Performed By: #### C BC #### [facility] [address] [place] [address] Dr. Jame Hutton MCHC (RBC) [Mass/Vol] 34.0 g/dL Normal 29.9-35.2 [facility] Comment on above: Performed By: #### C BC #### [facility] [address] [place] [address] Dr. Jame Hutton MCV (RBC) [Entitic vol] 86.8 fL Normal 81.0-99.0 [facility] Comment on above: Performed By: #### C BC #### [facility] [address] [place] [address] Dr. Jame Hutton MONO # 0.4 103/ul Normal 0.3-0.8 [facility] Comment on above: Performed By: #### C BC #### [facility] [address] [place] [address] Dr. Jame Hutton Monocytes/100 WBC (Bld) 5.8 % Normal 1.7-12.0 [facility] Comment on above: Performed By: #### C BC #### [facility] [address] [place] [address] Dr. Jame Hutton NEUT # 5.0 103/ul Normal 1.4-6.5 [facility] Comment on above: Performed By: #### C BC #### [facility] [address] [place] [address] Dr. Jame Hutton Neutrophils/100 WBC (Bld) 69.2 % Normal 43.0-75.0 [facility] Comment on above: Performed By: #### C BC #### [facility] [address] [address] [address] Jame Hutton Platelet mean volume (Bld) [Entitic vol] 11.5 fL Normal 9.5-13.5 [facility] Comment on above: Performed By: #### C BC #### [facility] [address] [address] [address] Jame Hutton PLT 250 103/ul Normal 150-450 [facility] Comment on above: Performed By: #### C BC #### [facility] [address] [place] [address] Dr. Jame Hutton RBC 5.01 106/ul Normal 4.20-5.40 [facility] Comment on above: Performed By: #### C BC #### [facility] [address] [place] [address] Dr. Jame Hutton WBC 7.3 103/ul Normal 4.0-11.0 [facility] Comment on above: Performed By: #### C BC #### [facility] [address] [place] [address] Dr. Jame Hutton GLYCOHEMOGLOBIN A1Con 2021 ADA RECOMMENDATION SEE BELOW Normal [facility] Comment on above: Result Comment: ADA RECOMMENDED LIMIT 4.0 - 6.0 ADA THERAPEUTIC TARGET < 7.0 ACTION SUGGESTED > 7.0 Performed By: #### A 1C #### [facility] [address] [place] [address] Dr. Jame Hutton Glucose [Mass/Vol] 94 mg/dL Normal [facility] Comment on above: Performed By: #### A 1C #### [facility] [address] [place] [address] Dr. Jame Hutton HbA1c (Bld) [Mass fraction] 4.9 % Normal 4.5-6.2 [facility] Comment on above: Performed By: #### A 1C #### [facility] [address] [place] [address] Dr. Jame Hutton LIPID PROFILEon 10-26-2022 CHOL-HDL RATIO NORM SEE BELOW Normal [facility] Comment on above: Result Comment: 3.3 - 4.4 LOW RISK 4.4 - 7.1 AVERAGE RISK 7.1 - 11.0 MODERATE RISK >11.0 HIGH RISK Performed By: #### B MP, LIPID, TSH, LIVER #### [facility] [address] [address] [address] Jame Hutton Cholesterol [Mass/Vol] 182 mg/dL Normal <=200 [facility] Comment on above: Performed By: #### B MP, LIPID, TSH, LIVER #### [facility] [address] [address] [address] Jame Hutton Cholesterol in HDL [Mass/Vol] 41 mg/dL Normal 40-60 [facility] Comment on above: Performed By: #### B MP, LIPID, TSH, LIVER #### [facility] [address] [address] [address] Jame Hutton Cholesterol in LDL [Mass/Vol] 102.6 mg/dL Normal [facility] Comment on above: Performed By: #### B MP, LIPID, TSH, LIVER #### [facility] [address] [address] [address] Jame Hutton Cholesterol.total/Cho lesterol in HDL [Mass ratio] 4.4 {ratio} Normal [facility] Comment on above: Performed By: #### B MP, LIPID, TSH, LIVER #### [facility] [address] [address] [address] Jame Hutton HDL NORMAL > or = 60 mg/dl - LO W CARDIOVASCULAR RISK <40 mg/dl - HIGH CARDIOVASCULAR RISK Normal [facility] Comment on above: Performed By: #### B MP, LIPID, TSH, LIVER #### [facility] [address] [address] [address] Jame Hutton LDL CALC NORMAL SEE BELOW Normal [facility] Comment on above: Result Comment: <100 mg/dl OPTIMAL 100 - 129 mg/dl NEAR OR ABOVE OPTIMAL 130 - 159 mg/dl BORDERLINE HIGH 160 - 189 mg/dl HIGH >190 mg/dl VERY HIGH Performed By: #### B MP, LIPID, TSH, LIVER #### [facility] [address] [address] [address] Jame Hutton Triglyceride [Mass/Vol] 192 mg/dL Critically high <=150 [facility] Comment on above: Performed By: #### B MP, LIPID, TSH, LIVER #### [facility] [address] [address] [address] Jame Hutton VLDL CALC 38.4 mg/dL Normal [facility] Comment on above: Performed By: #### B MP, LIPID, TSH, LIVER #### [facility] [address] [address] [address] Jame Hutton LIVER PROFILEon 02-01-2022 Albumin [Mass/Vol] 4.5 g/dL Normal 3.4-5.0 [facility] Comment on above: Performed By: #### B MP, LIPID, TSH, LIVER #### [facility] [address] [place] [address] Dr. Jame Hutton Albumin/Globulin [Mass ratio] 1.3 {ratio} Normal [facility] Comment on above: Performed By: #### B MP, LIPID, TSH, LIVER #### [facility] [address] [address] [address] Jame Hutton ALP [Catalytic activity/Vol] 96 U/L Normal 46-116 [facility] Comment on above: Performed By: #### B MP, LIPID, TSH, LIVER #### [facility] [address] [address] [address] Jame Hutton ALT [Catalytic activity/Vol] 35 U/L Normal 14-59 [facility] Comment on above: Performed By: #### B MP, LIPID, TSH, LIVER #### [facility] [address] [address] [address] Jame Hutton AST [Catalytic activity/Vol] 16 U/L Normal 15-37 [facility] Comment on above: Performed By: #### B MP, LIPID, TSH, LIVER #### [facility] [address] [address] [address] Jame Hutton BILI, CONJUGATED 0.1 mg/dL Normal 0.0-0.2 [facility] Comment on above: Performed By: #### B MP, LIPID, TSH, LIVER #### [facility] [address] [address] [address] Jame Hutton Bilirubin [Mass/Vol] 0.2 mg/dL Normal 0.2-1.0 [facility] Comment on above: Performed By: #### B MP, LIPID, TSH, LIVER #### [facility] [address] [place] [address] Dr. Jame Hutton Globulin (S) [Mass/Vol] 3.4 g/dL Normal [facility] Comment on above: Performed By: #### B MP, LIPID, TSH, LIVER #### [facility] [address] [place] [address] Dr. Jame Hutton Protein [Mass/Vol] 7.9 g/dL Normal 6.4-8.2 [facility] Comment on above: Performed By: #### B MP, LIPID, TSH, LIVER #### [facility] [address] [place] [address] Dr. Jame Hutton PROF CHEM 8 (BAS METB)on Anion gap [Moles/Vol] 11.6 mmol/L Normal [facility] Comment on above: Performed By: #### B MP, LIPID, TSH, LIVER #### [facility] [address] [place] [address] Dr. Jame Hutton Calcium [Mass/Vol] 9.5 mg/dL Normal 8.5-10.1 [facility] Comment on above: Performed By: #### B MP, LIPID, TSH, LIVER #### [facility] [address] [place] [address] Dr. Jame Hutton Chloride [Moles/Vol] 102 mmol/L Normal 98-107 [facility] Comment on above: Performed By: #### B MP, LIPID, TSH, LIVER #### [facility] [address] [place] [address] Dr. Jame Hutton CO2 [Moles/Vol] 29.3 mmol/L Normal 21.0-32.0 [facility] Comment on above: Performed By: #### B MP, LIPID, TSH, LIVER #### [facility] [address] [address] [address] Jame Hutton Creatinine [Mass/Vol] 0.73 mg/dL Normal 0.55-1.02 [facility] Comment on above: Performed By: #### B MP, LIPID, TSH, LIVER #### [facility] [address] [address] [address] Jame Hutton EGFR-AF MEXICAN >60 Normal >=60 [facility] Comment on above: Performed By: #### B MP, LIPID, TSH, LIVER #### [facility] [address] [address] [address] Jame Hutton EGFR-NON AF MEXICAN >60 Normal >=60 [facility] Comment on above: Performed By: #### B MP, LIPID, TSH, LIVER #### [facility] [address] [address] [address] Jame Hutton Glucose [Mass/Vol] 87 mg/dL Normal 74-106 [facility] Comment on above: Performed By: #### B MP, LIPID, TSH, LIVER #### [facility] [address] [address] [address] Jame Hutton Potassium [Moles/Vol] 3.9 mmol/L Normal 3.5-5.1 [facility] Comment on above: Performed By: #### B MP, LIPID, TSH, LIVER #### [facility] [address] [address] [address] Jame Hutton Sodium [Moles/Vol] 139 mmol/L Normal 136-145 [facility] Comment on above: Performed By: #### B MP, LIPID, TSH, LIVER #### [facility] [address] [address] [address] Jame Hutton Urea nitrogen [Mass/Vol] 11.0 mg/dL Normal 7.0-18.0 [facility] Comment on above: Performed By: #### B MP, LIPID, TSH, LIVER #### [facility] [address] [address] [address] Jame Hutton Urea nitrogen/Creatinine [Mass ratio] 15.1 mg/mg Normal [facility] Comment on above: Performed By: #### B MP, LIPID, TSH, LIVER #### [facility] [address] [place] [address] Dr. Jame Hutton TSHon 02-01-2022 TSH 1.696 uIU/mL Normal 0.358-3.740 [facility] Comment on above: Performed By: #### B MP, LIPID, TSH, LIVER #### [facility] [address] [place] [address] Dr. Jame Hutton PAP ACOG PANEL 2: 21 to 29on 12-21-2021 . . Normal [facility] Comment on above: Performed By: #### 4 [id number] #### [facility] [address] [place] [address] Dr. Jame Hutton Age Gdln ACOG Testing - [facility] Comment on above: Performed By: #### 4 [id number] #### [facility] [address] [place] [address] Dr. Jame Hutton DIAGNOSIS: Comment Abnormal [facility] Comment on above: Result Comment: EPIT HELIAL CELL ABNORMALITY. LOW GRADE SQUAMOUS INTRAEPITHELIAL LESION (LSIL). Performed By: #### 4 [id number] #### [facility] [address] [place] [address] Dr. Jame Hutton Electronically signed by: Comment Normal [facility] Comment on above: Result Comment: Yohana Garsia MD, Pathologist Performed By: #### 4 [id number] #### [facility] [address] [place] [address] Dr. Jame Hutton Methodology: Comment Normal [facility] Comment on above: Result Comment: This liquid based ThinPrep(R) pap test was screened with the use of an image guided system. Performed By: #### 4 [id number] #### [facility] [address] [place] [address] Dr. Jame Hutton Note: Comment Normal [facility] Comment on above: Result Comment: The Pap smear is a screening test designed to aid in the detection of premalignant and malignant conditions of the uterine cervix. It is not a diagnostic procedure and should not be used as the sole means of detecting cervical cancer. Both false-positive and false-negative reports do occur. . Performed By: #### 4 [id number] #### [facility] [address] [address] [address] Jame Hutton Pathologist Provided ICD10 Comment Normal [facility] Comment on above: Result Comment: R87. 612 Performed By: #### 4 [id number] #### [facility] [address] [address] [address] Jame Hutton Performed by: Comment Normal [facility] Comment on above: Result Comment: Linn Kemp, Supervisor Webbing (ASCP) Performed By: #### 4 [id number] #### [facility] [address] [place] [address] Dr. Jame Hutton Recommendation: Comment Abnormal [facility] Comment on above: Result Comment: Sugg est follow up as clinically appropriate. Performed By: #### 4 [id number] #### [facility] [address] [place] [address] Dr. Jame Hutton Reflex Criteria: Comment Normal [facility] Comment on above: Result Comment: The HPV DNA reflex criteria were not met with this specimen result therefore, no HPV testing was performed. . Performed By: #### 4 [id number] #### [facility] [address] [place] [address] Dr. Jame Hutton Specimen adequacy: Comment Normal [facility] Comment on above: Result Comment: Sati sfactory for evaluation. Endocervical and/or squamous metaplastic cells (endocervical component) are present. Performed By: #### 4 [id number] #### [facility] [address] [place] [address] Dr. Jame Hutton Encounters Encounter Date Encounter [...] without abnormal findings DR ANDRE HENAO [facility] Start: 02-01-2022 End: 02-02-[address] ANDRE HENAO Facility:[facility] Start: 02-01-2022 End: 02-02-2022 Encounter for general adult medical examination without abnormal findings DR ANDRE HENAO Facility:[facility] Start: 12-14-2021 End: 12-14-[address] SHELLY SCHMID . Facility:[facility] Payers Date Payer Category Payer Medicaid [id number] 2000 Unknown [id number] 2.16.84 [id number] 2000 Unknown [id number] 2.16.84 [id number] 1998 Unknown [id number] 2.16.84 [id number] 1998 Unknown [id number] 2.16.84 [id number] 1998 Unknown [id number] 2.16.84 [id number] 1998 Unknown [id number] [id number] 1998 Unknown [id number] [id number] 1959 Unknown [id number] Summary Purpose Family History No Family History Records FoundNo Family History Records Found Advance Directives No Advanced Directives Records FoundNo Advanced Directives Records Found Additional Source Comments INFORMATION SOURCE (unrecogn ized section and content) DATE CREATED AUTHOR 07/21/2022 [facility] DATE CREATED AUTHOR 'S ORGANIZ ATFARHAN 05/01/2023 [facility] EPIC FOR RECORDS PERTAINING TO [...] BE BASED ON THE PRIMARY CLINICAL RECORDS. [facility], [facility]. provides no warranty or guarantee of the accuracy or completeness of information in this document.
[2023-05-09 17:14] VITALS: BP 126/75; PULSE 93
--- NOTE | 2023-05-09 17:39 | US_ITS ---
[address] [address] Patient Name: PAPITO BOSS MRN: [id number] date: 2000 Sex: F Assigned Patient Location: US Current Patient Location: US Accession/Order Number: [id number] Exam Date: 05/09/2023 17:40 Report Date: 05/10/2023 07:09 At the request of: SHELLY SCHMID Procedure: US OB BPP w non-stress EXAMINATION: US OB BPP w non-stress HISTORY: GESTATIONAL DIABETES MELLITUS 024.419 COMPARISON: Ultrasound biophysical 05/02/2023 TECHNIQUE: Ultrasound biophysical profile was performed in the radiology department. BREATHING MOVEMENTS: 2.0 GROSS BODY MOVEMENTS: 2.0 TONE: 2.0 QUALITATIVE AMNIOTIC FLUID VOLUME: 2.0 PRESENTATION: BREECH HEART RATE: 129.8 bpm bpm. AMNIOTIC FLUID VOLUME: 11.2 cm GESTATIONAL AGE: 35 weeks 4 days CONCLUSION: Total biophysical profile score 8.0. Electronically authenticated by: SAUL HOBBS Date: 05/10/2023 07:09
== END 2023-05-09 18:01 | disposition home or self-care (01) ==
LOC: US 07:14 → FBC 17:11
PROVIDERS: PCP Family Medicine; Visit Provider Obstetrics & Gynecology
DX: O24.419 Gestational diabetes mellitus in pregnancy, unspecified control (principal); Z3A.35 35 weeks gestation of pregnancy
CPT/HCPCS: 76818

== ENCOUNTER 2023-05-12 07:46 | Outpatient (OUT) | payer BC, OTHER, SELFPAY ==
--- OUTSIDE RECORDS SUMMARY | 2023-05-12 07:48 | XMS_ITS | CCD ---
Author Name Unknown Address [address] [place] [address] Organization [facility] Care Team Providers Care Pole Peeler Name Role Phone BINU ., DR BRAVO [...] SCHMID Attending Unavailable GHISLAINE VEGA Attending Unavailable BINUSHELLY ALBRECHT Attending Unavailable GHISLAINE VEGA Attending Unavailable Allergies Allergy Classification Reported Allergen(s) Allergy Type Date of Onset Reaction(s) Facility (1 source) Naproxen Drug Allergy 07-02-2019 [facility] Repository Problems Active Problems Problem [...] 21 to 29on 07-20-2022 . . Normal [facility] Comment on above: Performed By: #### [id number] #### [facility] [address] [place] [address] Dr. Jame Hutton Age Gdln ACOG Testing 21-29 Normal [facility] Comment on above: Performed By: #### [id number] #### [facility] [address] [place] [address] Dr. Jame Hutton DIAGNOSIS: Comment Abnormal [facility] Comment on above: Result Comment: EPIT HELIAL CELL ABNORMALITY. LOW GRADE SQUAMOUS INTRAEPITHELIAL LESION (LSIL). Performed By: #### [id number] #### [facility] [address] [place] [address] Dr. Jame Hutton Electronically signed by: Comment Normal [facility] Comment on above: Result Comment: Yohana Garsia MD, Pathologist Performed By: #### 4 [id number] #### [facility] [address] [place] [address] Dr. Jame Hutton Methodology: Comment Normal [facility] Comment on above: Result Comment: This liquid based ThinPrep(R) pap test was screened with the use of an image guided system. Performed By: #### 4 [id number] #### [facility] [address] [place] [address] Dr. Jame Hutton Note: Comment Normal [facility] Comment on above: Result Comment: The Pap smear is a screening test designed to aid in the detection of premalignant and malignant conditions of the uterine cervix. It is not a diagnostic procedure and should not be used as the sole means of detecting cervical cancer. Both false-positive and false-negative reports do occur. . Performed By: #### [id number] #### [facility] [address] [place] [address] Dr. Jame Hutton Pathologist Provided ICD10 Comment Normal [facility] Comment on above: Result Comment: [id number] Performed By: #### [id number] #### [facility] [address] [place] [address] Dr. Jame Hutton Performed by: Comment Normal [facility] Comment on above: Result Comment: Shivani Anderson, Show Card Letterer (ASCP) Performed By: #### 4 [id number] #### [facility] [address] [place] [address] Dr. Jame Hutton Recommendation: Comment Abnormal [facility] Comment on above: Result Comment: Sugg est follow up as clinically appropriate. Performed By: #### 4 [id number] #### [facility] [address] [place] [address] Dr. Jame Hutton Reflex Criteria: Comment Normal [facility] Comment on above: Result Comment: The HPV DNA reflex criteria were not met with this specimen result therefore, no HPV testing was performed. . Performed By: #### 4 [id number] #### [facility] [address] [place] [address] Dr. Jame Hutton Specimen adequacy: Comment Normal [facility] Comment on above: Result Comment: Sati sfactory for evaluation. Endocervical and/or squamous metaplastic cells (endocervical component) are present. Areas of partially obscuring inflammatory exudate are present. Performed By: #### 4 [id number] #### [facility] [address] [place] [address] Dr. Jame Hutton INSULINon 02-03-2022 Insulin 11.5 uIU/mL Normal 2.6-24.9 [facility] Comment on above: Performed By: #### I NSULIN #### [facility] [address] [place] [address] Dr. Jame Hutton CBC AUTO DIFFon 02-01-2022 BASO # 0.0 103/ul Normal 0.0-0.1 [facility] Comment on above: Performed By: #### C BC #### [facility] [address] [place] [address] Dr. Jame Hutton Basophils/100 WBC (Bld) 0.6 % Normal 0.2-2.0 [facility] Comment on above: Performed By: #### C BC #### [facility] [address] [place] [address] Dr. Jame Hutton EO # 0.1 103/ul Normal 0.0-0.7 [facility] Comment on above: Performed By: #### C BC #### [facility] [address] [place] [address] Dr. Jame Hutton Eosinophils/100 WBC (Bld) 0.8 % Critically low 0.9-7.0 [facility] Comment on above: Performed By: #### C BC #### [facility] [address] [place] [address] Dr. Jame Hutton Erythrocyte distribution width (RBC) [Ratio] 12.5 % Normal 11.0-15.0 [facility] Comment on above: Performed By: #### C BC #### [facility] [address] [place] [address] Dr. Jame Hutton Hematocrit (Bld) [Volume fraction] 43.5 % Normal 36.0-48.0 [facility] Comment on above: Performed By: #### C BC #### [facility] [address] [place] [address] Dr. Jame Hutton Hemoglobin (Bld) [Mass/Vol] 14.8 g/dL Normal 12.0-16.0 [facility] Comment on above: Performed By: #### C BC #### [facility] [address] [place] [address] Dr. Jame Hutton IG # 0.02 10e3/ul Normal 0.00-0.03 [facility] Comment on above: Performed By: #### C BC #### [facility] [address] [place] [address] Dr. Jame Hutton IG % 0.3 % Normal 0.0-0.5 [facility] Comment on above: Performed By: #### C BC #### [facility] [address] [place] [address] Dr. Jame Hutton LYMPH # 1.7 103/ul Normal 1.2-3.8 [facility] Comment on above: Performed By: #### C BC #### [facility] [address] [place] [address] Dr. Jame Hutton Lymphocytes/100 WBC (Bld) 23.3 % Normal 20.5-60.0 [facility] Comment on above: Performed By: #### C BC #### [facility] [address] [place] [address] Dr. Jame Hutton MANUAL DIFF REQ NO Normal [facility] Comment on above: Performed By: #### C BC #### [facility] [address] [place] [address] Dr. Jame Hutton MCH (RBC) [Entitic mass] 29.5 pg Normal 26.7-34.0 [facility] Comment on above: Performed By: #### C BC #### [facility] [address] [place] [address] Dr. Jame Hutton MCHC (RBC) [Mass/Vol] 34.0 g/dL Normal 29.9-35.2 [facility] Comment on above: Performed By: #### C BC #### [facility] [address] [place] [address] Dr. Jame Hutton MCV (RBC) [Entitic vol] 86.8 fL Normal 81.0-99.0 [facility] Comment on above: Performed By: #### C BC #### [facility] [address] [place] [address] Dr. Jame Hutton MONO # 0.4 103/ul Normal 0.3-0.8 [facility] Comment on above: Performed By: #### C BC #### [facility] [address] [place] [address] Dr. Jame Hutton Monocytes/100 WBC (Bld) 5.8 % Normal 1.7-12.0 [facility] Comment on above: Performed By: #### C BC #### [facility] [address] [place] [address] Dr. Jame Hutton NEUT # 5.0 103/ul Normal 1.4-6.5 [facility] Comment on above: Performed By: #### C BC #### [facility] [address] [place] [address] Dr. Jame Hutton Neutrophils/100 WBC (Bld) 69.2 % Normal 43.0-75.0 [facility] Comment on above: Performed By: #### C BC #### [facility] [address] [address] [address] Jame Hutton Platelet mean volume (Bld) [Entitic vol] 11.5 fL Normal 9.5-13.5 [facility] Comment on above: Performed By: #### C BC #### [facility] [address] [address] [address] Jame Hutton PLT 250 103/ul Normal 150-450 [facility] Comment on above: Performed By: #### C BC #### [facility] [address] [place] [address] Dr. Jame Hutton RBC 5.01 106/ul Normal 4.20-5.40 [facility] Comment on above: Performed By: #### C BC #### [facility] [address] [place] [address] Dr. Jame Hutton WBC 7.3 103/ul Normal 4.0-11.0 [facility] Comment on above: Performed By: #### C BC #### [facility] [address] [place] [address] Dr. Jame Hutton GLYCOHEMOGLOBIN A1Con 2021 ADA RECOMMENDATION SEE BELOW Normal [facility] Comment on above: Result Comment: ADA RECOMMENDED LIMIT 4.0 - 6.0 ADA THERAPEUTIC TARGET < 7.0 ACTION SUGGESTED > 7.0 Performed By: #### A 1C #### [facility] [address] [place] [address] Dr. Jame Hutton Glucose [Mass/Vol] 94 mg/dL Normal [facility] Comment on above: Performed By: #### A 1C #### [facility] [address] [place] [address] Dr. Jame Hutton HbA1c (Bld) [Mass fraction] 4.9 % Normal 4.5-6.2 [facility] Comment on above: Performed By: #### A 1C #### [facility] [address] [place] [address] Dr. Jame Hutton LIPID PROFILEon 10-26-2022 CHOL-HDL RATIO NORM SEE BELOW Normal [facility] Comment on above: Result Comment: 3.3 - 4.4 LOW RISK 4.4 - 7.1 AVERAGE RISK 7.1 - 11.0 MODERATE RISK >11.0 HIGH RISK Performed By: #### B MP, LIPID, TSH, LIVER #### [facility] [address] [address] [address] Jame Hutton Cholesterol [Mass/Vol] 182 mg/dL Normal <=200 [facility] Comment on above: Performed By: #### B MP, LIPID, TSH, LIVER #### [facility] [address] [address] [address] Jame Hutton Cholesterol in HDL [Mass/Vol] 41 mg/dL Normal 40-60 [facility] Comment on above: Performed By: #### B MP, LIPID, TSH, LIVER #### [facility] [address] [address] [address] Jame Hutton Cholesterol in LDL [Mass/Vol] 102.6 mg/dL Normal [facility] Comment on above: Performed By: #### B MP, LIPID, TSH, LIVER #### [facility] [address] [address] [address] Jame Hutton Cholesterol.total/Cho lesterol in HDL [Mass ratio] 4.4 {ratio} Normal [facility] Comment on above: Performed By: #### B MP, LIPID, TSH, LIVER #### [facility] [address] [address] [address] Jame Hutton HDL NORMAL > or = 60 mg/dl - LO W CARDIOVASCULAR RISK <40 mg/dl - HIGH CARDIOVASCULAR RISK Normal [facility] Comment on above: Performed By: #### B MP, LIPID, TSH, LIVER #### [facility] [address] [address] [address] Jame Hutton LDL CALC NORMAL SEE BELOW Normal [facility] Comment on above: Result Comment: <100 mg/dl OPTIMAL 100 - 129 mg/dl NEAR OR ABOVE OPTIMAL 130 - 159 mg/dl BORDERLINE HIGH 160 - 189 mg/dl HIGH >190 mg/dl VERY HIGH Performed By: #### B MP, LIPID, TSH, LIVER #### [facility] [address] [address] [address] Jame Hutton Triglyceride [Mass/Vol] 192 mg/dL Critically high <=150 [facility] Comment on above: Performed By: #### B MP, LIPID, TSH, LIVER #### [facility] [address] [address] [address] Jame Hutton VLDL CALC 38.4 mg/dL Normal [facility] Comment on above: Performed By: #### B MP, LIPID, TSH, LIVER #### [facility] [address] [address] [address] Jame Hutton LIVER PROFILEon 02-01-2022 Albumin [Mass/Vol] 4.5 g/dL Normal 3.4-5.0 [facility] Comment on above: Performed By: #### B MP, LIPID, TSH, LIVER #### [facility] [address] [place] [address] Dr. Jame Hutton Albumin/Globulin [Mass ratio] 1.3 {ratio} Normal [facility] Comment on above: Performed By: #### B MP, LIPID, TSH, LIVER #### [facility] [address] [address] [address] Jame Hutton ALP [Catalytic activity/Vol] 96 U/L Normal 46-116 [facility] Comment on above: Performed By: #### B MP, LIPID, TSH, LIVER #### [facility] [address] [address] [address] Jame Hutton ALT [Catalytic activity/Vol] 35 U/L Normal 14-59 [facility] Comment on above: Performed By: #### B MP, LIPID, TSH, LIVER #### [facility] [address] [address] [address] Jame Hutton AST [Catalytic activity/Vol] 16 U/L Normal 15-37 [facility] Comment on above: Performed By: #### B MP, LIPID, TSH, LIVER #### [facility] [address] [address] [address] Jame Hutton BILI, CONJUGATED 0.1 mg/dL Normal 0.0-0.[address] [facility] Comment on above: Performed By: #### B MP, LIPID, TSH, LIVER #### [facility] [address] [address] [address] Jame Hutton Bilirubin [Mass/Vol] 0.2 mg/dL Normal 0.2-1.0 [facility] Comment on above: Performed By: #### B MP, LIPID, TSH, LIVER #### [facility] [address] [place] [address] Dr. Jame Hutton Globulin (S) [Mass/Vol] 3.4 g/dL Normal [facility] Comment on above: Performed By: #### B MP, LIPID, TSH, LIVER #### [facility] [address] [place] [address] Dr. Jame Hutton Protein [Mass/Vol] 7.9 g/dL Normal 6.4-8.[address] [facility] Comment on above: Performed By: #### B MP, LIPID, TSH, LIVER #### [facility] [address] [place] [address] Dr. Jame Hutton PROF CHEM 8 (BAS METB)on Anion gap [Moles/Vol] 11.6 mmol/L Normal [facility] Comment on above: Performed By: #### B MP, LIPID, TSH, LIVER #### [facility] [address] [place] [address] Dr. Jame Hutton Calcium [Mass/Vol] 9.5 mg/dL Normal 8.5-10.[address] [facility] Comment on above: Performed By: #### B MP, LIPID, TSH, LIVER #### [facility] [address] [place] [address] Dr. Jame Hutton Chloride [Moles/Vol] 102 mmol/L Normal 98-107 [facility] Comment on above: Performed By: #### B MP, LIPID, TSH, LIVER #### [facility] [address] [place] [address] Dr. Jame Hutton CO2 [Moles/Vol] 29.3 mmol/L Normal 21.0-32.[address] [facility] Comment on above: Performed By: #### B MP, LIPID, TSH, LIVER #### [facility] [address] [address] [address] Jame Hutton Creatinine [Mass/Vol] 0.73 mg/dL Normal 0.55-1.02 [facility] Comment on above: Performed By: #### B MP, LIPID, TSH, LIVER #### [facility] [address] [address] [address] Jame Hutton EGFR-AF ALGERIAN >60 Normal >=[address] [facility] Comment on above: Performed By: #### B MP, LIPID, TSH, LIVER #### [facility] [address] [address] [address] Jame Hutton EGFR-NON AF ALGERIAN >60 Normal >=60 [facility] Comment on above: Performed By: #### B MP, LIPID, TSH, LIVER #### [facility] [address] [address] [address] Jame Hutton Glucose [Mass/Vol] 87 mg/dL Normal 74-106 [facility] Comment on above: Performed By: #### B MP, LIPID, TSH, LIVER #### [facility] [address] [address] [address] Jame Hutton Potassium [Moles/Vol] 3.9 mmol/L Normal 3.5-5.1 [facility] Comment on above: Performed By: #### B MP, LIPID, TSH, LIVER #### [facility] [address] [address] [address] Jame Hutton Sodium [Moles/Vol] 139 mmol/L Normal 136-145 [facility] Comment on above: Performed By: #### B MP, LIPID, TSH, LIVER #### [facility] [address] [address] [address] Jame Hutton Urea nitrogen [Mass/Vol] 11.0 mg/dL Normal 7.0-18.0 [facility] Comment on above: Performed By: #### B MP, LIPID, TSH, LIVER #### [facility] [address] [address] [address] Jame Hutton Urea nitrogen/Creatinine [Mass ratio] 15.1 mg/mg Normal [facility] Comment on above: Performed By: #### B MP, LIPID, TSH, LIVER #### [facility] [address] [place] [address] Dr. Jame Hutton TSHon 02-01-2022 TSH 1.696 uIU/mL Normal 0.358-3.[address] [facility] Comment on above: Performed By: #### B MP, LIPID, TSH, LIVER #### [facility] [address] [place] [address] Dr. Jame Hutton PAP ACOG PANEL 2: 21 to 29on 12-21-2021 . . Normal [facility] Comment on above: Performed By: #### [id number] #### [facility] [address] [place] [address] Dr. Jame Hutton Age Gdln ACOG Testing - [facility] Comment on above: Performed By: #### 4 [id number] #### [facility] [address] [place] [address] Dr. Jame Hutton DIAGNOSIS: Comment Abnormal [facility] Comment on above: Result Comment: EPIT HELIAL CELL ABNORMALITY. LOW GRADE SQUAMOUS INTRAEPITHELIAL LESION (LSIL). Performed By: #### 4 [id number] #### [facility] [address] [place] [address] Dr. Jame Hutton Electronically signed by: Comment Normal [facility] Comment on above: Result Comment: Yohana Garsia MD, Pathologist Performed By: #### 4 [id number] #### [facility] [address] [place] [address] Dr. Jame Hutton Methodology: Comment Normal [facility] Comment on above: Result Comment: This liquid based ThinPrep(R) pap test was screened with the use of an image guided system. Performed By: #### 4 [id number] #### [facility] [address] [place] [address] Dr. Jame Hutton Note: Comment Normal [facility] Comment on above: Result Comment: The Pap smear is a screening test designed to aid in the detection of premalignant and malignant conditions of the uterine cervix. It is not a diagnostic procedure and should not be used as the sole means of detecting cervical cancer. Both false-positive and false-negative reports do occur. . Performed By: #### 4 [id number] #### [facility] [address] [address] [address] Jame Hutton Pathologist Provided ICD10 Comment Normal [facility] Comment on above: Result Comment: [id number]. [id number] Performed By: #### 4 [id number] #### [facility] [address] [address] [address] Jame Hutton Performed by: Comment Normal [facility] Comment on above: Result Comment: Linn Kemp, Show Card Letterer (ASCP) Performed By: #### 4 [id number] #### [facility] [address] [place] [address] Dr. Jame Hutotn Recommendation: Comment Abnormal [facility] Comment on above: Result Comment: Sugg est follow up as clinically appropriate. Performed By: #### 4 [id number] #### [facility] [address] [place] [address] Dr. Jame Hutton Reflex Criteria: Comment Normal [facility] Comment on above: Result Comment: The HPV DNA reflex criteria were not met with this specimen result therefore, no HPV testing was performed. . Performed By: #### 4 [id number] #### [facility] [address] [place] [address] Dr. Jame Hutton Specimen adequacy: Comment Normal [facility] Comment on above: Result Comment: Sati sfactory for evaluation. Endocervical and/or squamous metaplastic cells (endocervical component) are present. Performed By: #### 4 [id number] #### [facility] [address] [place] [address] Dr. Jame Hutton Encounters Encounter Date Encounter [...] without abnormal findings DR ANDRE HENAO [facility] Start: 02-01-2022 End: 02-02-[address] ANDRE HENAO Facility:[facility] Start: 02-01-2022 End: 02-02-2022 Encounter for general adult medical examination without abnormal findings DR ANDRE HENAO Facility:[facility] Start: 12-14-2021 End: 12-14-[address] SHELLY SCHMID . Facility:[facility] Payers Date Payer Category Payer Medicaid [id number] 1998 Unknown [id number] 2.16.84 [id number] 1998 Unknown [id number] 2.16.84 [id number] 1998 Unknown [id number] 2.16.84 [id number] 1998 Unknown [id number] 2.16.84 [id number] 1998 Unknown [id number] 2.16.84 [id number] 1998 Unknown [id number] [id number] 1998 Unknown [id number] [id number] 1959 Unknown [id number] Summary Purpose Family History No Family History Records FoundNo Family History Records Found Advance Directives No Advanced Directives Records FoundNo Advanced Directives Records Found Additional Source Comments INFORMATION SOURCE (unrecogn ized section and content) DATE CREATED AUTHOR 07/21/2022 [facility] DATE CREATED AUTHOR 'S ORGANIZ ATFARHAN 05/01/2023 [facility] EPIC FOR RECORDS PERTAINING [...] BE BASED ON THE PRIMARY CLINICAL RECORDS. [facility], [facility]. provides no warranty or guarantee of the accuracy or completeness of information in this document.
[2023-05-12 09:13] VITALS: BP 123/71; PULSE 109
== END 2023-05-12 09:35 | disposition home or self-care (01) ==
LOC: FBCO 07:46 → FBC 09:07
PROVIDERS: PCP Family Medicine; Visit Provider Obstetrics & Gynecology
DX: O24.419 Gestational diabetes mellitus in pregnancy, unspecified control (principal); Z3A.00 Weeks of gestation of pregnancy not specified
CPT/HCPCS: 59025

== ENCOUNTER 2023-05-14 20:42 | Outpatient (REF) | payer BC, OTHER, SELFPAY ==
--- OUTSIDE RECORDS SUMMARY | 2023-05-14 20:47 | XMS_ITS | CCD ---
Author Name Unknown Address [address] [place] [address] Organization [facility] Care Team Providers Care Retail Special Event Associate Name Role Phone BINU ., DR BRAVO [...] (1 source) Naproxen Drug Allergy 07-02-[address] [facility] Repository Problems Active Problems Problem Classification [...] 21 to 29on 07-20-2022 . . Normal [facility] Comment on above: Performed By: #### [id number] #### [facility] [address] [place] [address] Dr. Jame Hutton Age Gdln ACOG Testing 21-29 Normal [facility] Comment on above: Performed By: #### [id number] #### [facility] [address] [place] [address] Dr. Jame Hutton DIAGNOSIS: Comment Abnormal [facility] Comment on above: Result Comment: EPIT HELIAL CELL ABNORMALITY. LOW GRADE SQUAMOUS INTRAEPITHELIAL LESION (LSIL). Performed By: #### [id number] #### [facility] [address] [place] [address] Dr. Jame Hutton Electronically signed by: Comment Normal [facility] Comment on above: Result Comment: Yohana Garsia MD, Pathologist Performed By: #### [id number] #### [facility] [address] [place] [address] Dr. Jame Hutton Methodology: Comment Normal [facility] Comment on above: Result Comment: This liquid based ThinPrep(R) pap test was screened with the use of an image guided system. Performed By: #### 4 [id number] #### [facility] [address] [place] [address] Dr. Jame Hutton Note: Comment Normal [facility] Comment on above: Result Comment: The Pap smear is a screening test designed to aid in the detection of premalignant and malignant conditions of the uterine cervix. It is not a diagnostic procedure and should not be used as the sole means of detecting cervical cancer. Both false-positive and false-negative reports do occur. . Performed By: #### 4 [id number] #### [facility] [address] [place] [address] Dr. Jame Hutton Pathologist Provided ICD10 Comment Normal [facility] Comment on above: Result Comment: [id number]. [id number] Performed By: #### [id number] #### [facility] [address] [place] [address] Dr. Jame Hutton Performed by: Comment Normal [facility] Comment on above: Result Comment: Shivani Anderson, Strickler Attendant (ASCP) Performed By: #### [id number] #### [facility] [address] [place] [address] Dr. Jame Hutton Recommendation: Comment Abnormal [facility] Comment on above: Result Comment: Sugg est follow up as clinically appropriate. Performed By: #### 4 [id number] #### [facility] [address] [place] [address] Dr. Jame Hutton Reflex Criteria: Comment Normal [facility] Comment on above: Result Comment: The HPV DNA reflex criteria were not met with this specimen result therefore, no HPV testing was performed. . Performed By: #### 4 [id number] #### [facility] [address] [place] [address] Dr. Jame Hutton Specimen adequacy: Comment Normal [facility] Comment on above: Result Comment: Sati sfactory for evaluation. Endocervical and/or squamous metaplastic cells (endocervical component) are present. Areas of partially obscuring inflammatory exudate are present. Performed By: #### 4 [id number] #### [facility] [address] [place] [address] Dr. Jame Hutton INSULINon 02-03-2022 Insulin 11.5 uIU/mL Normal 2.6-24.9 [facility] Comment on above: Performed By: #### I NSULIN #### [facility] [address] [place] [address] Dr. Jame Hutton CBC AUTO DIFFon 02-01-2022 BASO # 0.0 103/ul Normal 0.0-0.1 [facility] Comment on above: Performed By: #### C BC #### [facility] [address] [place] [address] Dr. Jame Hutton Basophils/100 WBC (Bld) 0.6 % Normal 0.2-2.0 [facility] Comment on above: Performed By: #### C BC #### [facility] [address] [place] [address] Dr. Jame Hutton EO # 0.1 103/ul Normal 0.0-0.7 [facility] Comment on above: Performed By: #### C BC #### [facility] [address] [place] [address] Dr. Jame Hutton Eosinophils/100 WBC (Bld) 0.8 % Critically low 0.9-7.0 [facility] Comment on above: Performed By: #### C BC #### [facility] [address] [place] [address] Dr. Jame Hutton Erythrocyte distribution width (RBC) [Ratio] 12.5 % Normal 11.0-15.0 [facility] Comment on above: Performed By: #### C BC #### [facility] [address] [place] [address] Dr. Jame Hutton Hematocrit (Bld) [Volume fraction] 43.5 % Normal 36.0-48.0 [facility] Comment on above: Performed By: #### C BC #### [facility] [address] [place] [address] Dr. Jame Hutton Hemoglobin (Bld) [Mass/Vol] 14.8 g/dL Normal 12.0-16.0 [facility] Comment on above: Performed By: #### C BC #### [facility] [address] [place] [address] Dr. Jame Huttno IG # 0.02 10e3/ul Normal 0.00-0.03 [facility] Comment on above: Performed By: #### C BC #### [facility] [address] [place] [address] Dr. Jame Hutton IG % 0.3 % Normal 0.0-0.[address] [facility] Comment on above: Performed By: #### C BC #### [facility] [address] [place] [address] Dr. Jame Hutton LYMPH # 1.7 103/ul Normal 1.2-3.8 [facility] Comment on above: Performed By: #### C BC #### [facility] [address] [place] [address] Dr. Jame Hutton Lymphocytes/100 WBC (Bld) 23.3 % Normal 20.5-60.0 [facility] Comment on above: Performed By: #### C BC #### [facility] [address] [place] [address] Dr. Jame Hutton MANUAL DIFF REQ NO Normal [facility] Comment on above: Performed By: #### C BC #### [facility] [address] [place] [address] Dr. Jame Hutton MCH (RBC) [Entitic mass] 29.5 pg Normal 26.7-34.0 [facility] Comment on above: Performed By: #### C BC #### [facility] [address] [place] [address] Dr. Jame Hutton MCHC (RBC) [Mass/Vol] 34.0 g/dL Normal 29.9-35.2 [facility] Comment on above: Performed By: #### C BC #### [facility] [address] [place] [address] Dr. Jame Hutton MCV (RBC) [Entitic vol] 86.8 fL Normal 81.0-99.0 [facility] Comment on above: Performed By: #### C BC #### [facility] [address] [place] [address] Dr. Jame Hutton MONO # 0.4 103/ul Normal 0.3-0.8 [facility] Comment on above: Performed By: #### C BC #### [facility] [address] [place] [address] Dr. Jame Hutton Monocytes/100 WBC (Bld) 5.8 % Normal 1.7-12.0 [facility] Comment on above: Performed By: #### C BC #### [facility] [address] [place] [address] Dr. Jame Hutton NEUT # 5.0 103/ul Normal 1.4-6.5 [facility] Comment on above: Performed By: #### C BC #### [facility] [address] [place] [address] Dr. Jame Hutton Neutrophils/100 WBC (Bld) 69.2 % Normal 43.0-75.0 [facility] Comment on above: Performed By: #### C BC #### [facility] [address] [address] [address] Jame Hutton Platelet mean volume (Bld) [Entitic vol] 11.5 fL Normal 9.5-13.5 [facility] Comment on above: Performed By: #### C BC #### [facility] [address] [address] [address] Jame Hutton PLT 250 103/ul Normal 150-[address] [facility] Comment on above: Performed By: #### C BC #### [facility] [address] [place] [address] Dr. Jame Hutton RBC 5.01 106/ul Normal 4.20-5.40 [facility] Comment on above: Performed By: #### C BC #### [facility] [address] [place] [address] Dr. Jame Hutton WBC 7.3 103/ul Normal 4.0-11.0 [facility] Comment on above: Performed By: #### C BC #### [facility] [address] [place] [address] Dr. Jame Hutton GLYCOHEMOGLOBIN A1Con 2021 ADA RECOMMENDATION SEE BELOW Normal [facility] Comment on above: Result Comment: ADA RECOMMENDED LIMIT 4.0 - 6.0 ADA THERAPEUTIC TARGET < 7.0 ACTION SUGGESTED > 7.0 Performed By: #### A 1C #### [facility] [address] [place] [address] Dr. Jame Hutton Glucose [Mass/Vol] 94 mg/dL Normal [facility] Comment on above: Performed By: #### A 1C #### [facility] [address] [place] [address] Dr. Jame Hutton HbA1c (Bld) [Mass fraction] 4.9 % Normal 4.5-6.2 [facility] Comment on above: Performed By: #### A 1C #### [facility] [address] [place] [address] Dr. Jame Hutton LIPID PROFILEon 10-26-2022 CHOL-HDL RATIO NORM SEE BELOW Normal [facility] Comment on above: Result Comment: 3.3 - 4.4 LOW RISK 4.4 - 7.1 AVERAGE RISK 7.1 - 11.0 MODERATE RISK >11.0 HIGH RISK Performed By: #### B MP, LIPID, TSH, LIVER #### [facility] [address] [address] [address] Jame Hutton Cholesterol [Mass/Vol] 182 mg/dL Normal <=200 [facility] Comment on above: Performed By: #### B MP, LIPID, TSH, LIVER #### [facility] [address] [address] [address] Jame Hutton Cholesterol in HDL [Mass/Vol] 41 mg/dL Normal 40-60 [facility] Comment on above: Performed By: #### B MP, LIPID, TSH, LIVER #### [facility] [address] [address] [address] Jame Hutton Cholesterol in LDL [Mass/Vol] 102.6 mg/dL Normal [facility] Comment on above: Performed By: #### B MP, LIPID, TSH, LIVER #### [facility] [address] [address] [address] Jame Hutton Cholesterol.total/Cho lesterol in HDL [Mass ratio] 4.4 {ratio} Normal [facility] Comment on above: Performed By: #### B MP, LIPID, TSH, LIVER #### [facility] [address] [address] [address] Jame Hutton HDL NORMAL > or = 60 mg/dl - LO W CARDIOVASCULAR RISK <40 mg/dl - HIGH CARDIOVASCULAR RISK Normal [facility] Comment on above: Performed By: #### B MP, LIPID, TSH, LIVER #### [facility] [address] [address] [address] Jame Hutton LDL CALC NORMAL SEE BELOW Normal [facility] Comment on above: Result Comment: <100 mg/dl OPTIMAL 100 - 129 mg/dl NEAR OR ABOVE OPTIMAL 130 - 159 mg/dl BORDERLINE HIGH 160 - 189 mg/dl HIGH >190 mg/dl VERY HIGH Performed By: #### B MP, LIPID, TSH, LIVER #### [facility] [address] [address] [address] Jame Hutton Triglyceride [Mass/Vol] 192 mg/dL Critically high <=[address] [facility] Comment on above: Performed By: #### B MP, LIPID, TSH, LIVER #### [facility] [address] [address] [address] Jame Hutton VLDL CALC 38.4 mg/dL Normal [facility] Comment on above: Performed By: #### B MP, LIPID, TSH, LIVER #### [facility] [address] [address] [address] Jame Hutton LIVER PROFILEon 02-01-2022 Albumin [Mass/Vol] 4.5 g/dL Normal 3.4-5.0 [facility] Comment on above: Performed By: #### B MP, LIPID, TSH, LIVER #### [facility] [address] [place] [address] Dr. Jame Hutton Albumin/Globulin [Mass ratio] 1.3 {ratio} Normal [facility] Comment on above: Performed By: #### B MP, LIPID, TSH, LIVER #### [facility] [address] [address] [address] Jame Hutton ALP [Catalytic activity/Vol] 96 U/L Normal 46-116 [facility] Comment on above: Performed By: #### B MP, LIPID, TSH, LIVER #### [facility] [address] [address] [address] Jame Hutton ALT [Catalytic activity/Vol] 35 U/L Normal 14-59 [facility] Comment on above: Performed By: #### B MP, LIPID, TSH, LIVER #### [facility] [address] [address] [address] Jame Hutton AST [Catalytic activity/Vol] 16 U/L Normal 15-37 [facility] Comment on above: Performed By: #### B MP, LIPID, TSH, LIVER #### [facility] [address] [address] [address] Jame Hutton BILI, CONJUGATED 0.1 mg/dL Normal 0.0-0.2 [facility] Comment on above: Performed By: #### B MP, LIPID, TSH, LIVER #### [facility] [address] [address] [address] Jame Hutton Bilirubin [Mass/Vol] 0.2 mg/dL Normal 0.2-1.0 [facility] Comment on above: Performed By: #### B MP, LIPID, TSH, LIVER #### [facility] [address] [place] [address] Dr. Jame Hutton Globulin (S) [Mass/Vol] 3.4 g/dL Normal [facility] Comment on above: Performed By: #### B MP, LIPID, TSH, LIVER #### [facility] [address] [place] [address] Dr. Jame Hutton Protein [Mass/Vol] 7.9 g/dL Normal 6.4-8.2 [facility] Comment on above: Performed By: #### B MP, LIPID, TSH, LIVER #### [facility] [address] [place] [address] Dr. Jame Hutton PROF CHEM 8 (BAS METB)on Anion gap [Moles/Vol] 11.6 mmol/L Normal [place] Comment on above: Performed By: #### B MP, LIPID, TSH, LIVER #### [facility] [address] [place] [address] Dr. Jame Hutton Calcium [Mass/Vol] 9.5 mg/dL Normal 8.5-10.1 [facility] Comment on above: Performed By: #### B MP, LIPID, TSH, LIVER #### [facility] [address] [place] [address] Dr. Jame Hutton Chloride [Moles/Vol] 102 mmol/L Normal 98-107 [facility] Comment on above: Performed By: #### B MP, LIPID, TSH, LIVER #### [facility] [address] [place] [address] Dr. Jame Hutton CO2 [Moles/Vol] 29.3 mmol/L Normal 21.0-32.0 [facility] Comment on above: Performed By: #### B MP, LIPID, TSH, LIVER #### [facility] [address] [address] [address] Jame Hutton Creatinine [Mass/Vol] 0.73 mg/dL Normal 0.55-1.02 [facility] Comment on above: Performed By: #### B MP, LIPID, TSH, LIVER #### [facility] [address] [address] [address] Jame Hutton EGFR-AF TUNISIAN >60 Normal >=60 [facility] Comment on above: Performed By: #### B MP, LIPID, TSH, LIVER #### [facility] [address] [address] [address] Jame Hutton EGFR-NON AF TUNISIAN >60 Normal >=60 [facility] Comment on above: Performed By: #### B MP, LIPID, TSH, LIVER #### [facility] [address] [address] [address] Jame Hutton Glucose [Mass/Vol] 87 mg/dL Normal 74-106 [facility] Comment on above: Performed By: #### B MP, LIPID, TSH, LIVER #### [facility] [address] [address] [address] Jame Hutton Potassium [Moles/Vol] 3.9 mmol/L Normal 3.5-5.1 [facility] Comment on above: Performed By: #### B MP, LIPID, TSH, LIVER #### [facility] [address] [address] [address] Jame Hutton Sodium [Moles/Vol] 139 mmol/L Normal 136-145 [facility] Comment on above: Performed By: #### B MP, LIPID, TSH, LIVER #### [facility] [address] [address] [address] Jame Hutton Urea nitrogen [Mass/Vol] 11.0 mg/dL Normal 7.0-18.0 [facility] Comment on above: Performed By: #### B MP, LIPID, TSH, LIVER #### [facility] [address] [address] [address] Jame Hutton Urea nitrogen/Creatinine [Mass ratio] 15.1 mg/mg Normal [facility] Comment on above: Performed By: #### B MP, LIPID, TSH, LIVER #### [facility] [address] [place] [address] Dr. Jame Hutton TSHon 02-01-2022 TSH 1.696 uIU/mL Normal 0.358-3.740 [facility] Comment on above: Performed By: #### B MP, LIPID, TSH, LIVER #### [facility] [address] [place] [address] Dr. Jame Hutton PAP ACOG PANEL 2: 21 to 29on 12-21-2021 . . Normal [facility] Comment on above: Performed By: #### [id number] #### [facility] [address] [place] [address] Dr. Jame Hutton Age Gdln ACOG Testing - [facility] Comment on above: Performed By: #### 4 [id number] #### [facility] [address] [place] [address] Dr. Jame Hutton DIAGNOSIS: Comment Abnormal [facility] Comment on above: Result Comment: EPIT HELIAL CELL ABNORMALITY. LOW GRADE SQUAMOUS INTRAEPITHELIAL LESION (LSIL). Performed By: #### 4 [id number] #### [facility] [address] [place] [address] Dr. Jame Hutton Electronically signed by: Comment Normal [facility] Comment on above: Result Comment: Yohana Garsia MD, Pathologist Performed By: #### 4 [id number] #### [facility] [address] [place] [address] Dr. Jame Hutton Methodology: Comment Normal [facility] Comment on above: Result Comment: This liquid based ThinPrep(R) pap test was screened with the use of an image guided system. Performed By: #### 4 [id number] #### [facility] [address] [place] [address] Dr. Jame Hutton Note: Comment Normal [facility] Comment on above: Result Comment: The Pap smear is a screening test designed to aid in the detection of premalignant and malignant conditions of the uterine cervix. It is not a diagnostic procedure and should not be used as the sole means of detecting cervical cancer. Both false-positive and false-negative reports do occur. . Performed By: #### 4 [id number] #### [facility] [address] [address] [address] Jame Hutton Pathologist Provided ICD10 Comment Normal [facility] Comment on above: Result Comment: [id number]. [id number] Performed By: #### 4 [id number] #### [facility] [address] [address] [address] Jame Hutton Performed by: Comment Normal [facility] Comment on above: Result Comment: Linn Kemp, Strickler Attendant (ASCP) Performed By: #### 4 [id number] #### [facility] [address] [place] [address] Dr. Jame Hutton Recommendation: Comment Abnormal [facility] Comment on above: Result Comment: Sugg est follow up as clinically appropriate. Performed By: #### 4 [id number] #### [facility] [address] [place] [address] Dr. Jame Hutton Reflex Criteria: Comment Normal [facility] Comment on above: Result Comment: The HPV DNA reflex criteria were not met with this specimen result therefore, no HPV testing was performed. . Performed By: #### 4 [id number] #### [facility] [address] [place] [address] Dr. Jame Hutton Specimen adequacy: Comment Normal [facility] Comment on above: Result Comment: Sati sfactory for evaluation. Endocervical and/or squamous metaplastic cells (endocervical component) are present. Performed By: #### 4 [id number] #### [facility] [address] [place] [address] Dr. Jame Hutton Encounters Encounter Date Encounter [...] without abnormal findings DR ANDRE HENAO [facility] Start: 02-01-2022 End: 02-02-[address] ANDRE HENAO Facility:[facility] Start: 02-01-2022 End: 02-02-2022 Encounter for general adult medical examination without abnormal findings DR ANDRE HENAO Facility:[facility] Start: 12-14-2021 End: 12-14-[address] SHELLY SCHMID . Facility:[facility] Payers Date Payer Category Payer Medicaid [id number] 1998 Unknown [id number] 2.16.84 [id number] 1998 Unknown [id number] 2.16.84 [id number] 1998 Unknown [id number] 2.16.84 [id number] 1998 Unknown [id number] 2.16.84 [id number] 1998 Unknown [id number] 2.16.84 [id number] 1998 Unknown [id number] [id number] .[id number] 1998 Unknown [id number] [id number] 1959 Unknown [id number] Summary Purpose Family History No Family History Records FoundNo Family History Records Found Advance Directives No Advanced Directives Records FoundNo Advanced Directives Records Found Additional Source Comments INFORMATION SOURCE (unrecogn ized section and content) DATE CREATED AUTHOR 07/21/2022 [facility] DATE CREATED AUTHOR 'S ORGANIZ ATFARHAN 05/01/2023 [facility] dical Specialists EPIC FOR RECORDS PERTAINING TO [...]
== END 2023-05-14 20:43 | disposition home or self-care (01) ==
LOC: LAB 20:42
PROVIDERS: PCP Family Medicine; Visit Provider Obstetrics & Gynecology
DX: Z34.93 Encounter for supervision of normal pregnancy, unspecified, third trimester (principal)
CPT/HCPCS: 87081

== ENCOUNTER 2023-05-16 07:20 | Outpatient (OUT) | payer BC, OTHER, SELFPAY ==
--- OUTSIDE RECORDS SUMMARY | 2023-05-16 07:22 | XMS_ITS | CCD ---
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 . Normal [facility] Comment on above: Performed By: #### [id number] #### [facility] [address] [place] [address] Dr. Jame Hutton Age Gdln ACOG Testing 21-29 Normal [facility] Comment on above: Performed By: #### 4 [id number] #### [facility] [address] [place] [address] Dr. Jame Hutton DIAGNOSIS: Comment Abnormal [facility] Comment on above: Result Comment: EPIT HELIAL CELL ABNORMALITY. LOW GRADE SQUAMOUS INTRAEPITHELIAL LESION (LSIL). Performed By: #### 4 [id number] #### [facility] [address] [place] [address] Dr. Jame Hutton Electronically signed by: Comment Normal [facility] Comment on above: Result Comment: Yohana Garsia MD, Pathologist Performed By: #### 4 [id number] #### [facility] [address] [place] [address] Dr. Jame Hutton Methodology: Comment Normal [facility] Comment on above: Result Comment: This liquid based ThinPrep(R) pap test was screened with the use of an image guided system. Performed By: #### 4 [id number] #### [facility] [address] [place] [address] Dr. Jame Hutton Note: Comment Normal [facility] Comment on above: Result Comment: The Pap smear is a screening test designed to aid in the detection of premalignant and malignant conditions of the uterine cervix. It is not a diagnostic procedure and should not be used as the sole means of detecting cervical cancer. Both false-positive and false-negative reports do occur. . Performed By: #### 4 [id number] #### [facility] [address] [place] [address] Dr. Jame Hutton Pathologist Provided ICD10 Comment Normal [facility] Comment on above: Result Comment: [id number] Performed By: #### 4 [id number] #### [facility] [address] [place] [address] Dr. Jame Hutton Performed by: Comment Normal [facility] Comment on above: Result Comment: Shivani Anderson, Chemical Research Engineer (ASCP) Performed By: #### 4 [id number] #### [facility] [address] [place] [address] Dr. Jame Hutton Recommendation: Comment Abnormal [facility] Comment on above: Result Comment: Sugg est follow up as clinically appropriate. Performed By: #### 4 [id number] #### [facility] [address] [place] [address] Dr. Jame Hutton Reflex Criteria: Comment Normal [facility] Comment on above: Result Comment: The HPV DNA reflex criteria were not met with this specimen result therefore, no HPV testing was performed. . Performed By: #### 4 [id number] #### [facility] [address] [place] [address] Dr. Jame Hutton Specimen adequacy: Comment Normal [facility] Comment on above: Result Comment: Sati sfactory for evaluation. Endocervical and/or squamous metaplastic cells (endocervical component) are present. Areas of partially obscuring inflammatory exudate are present. Performed By: #### 4 [id number] #### [facility] [address] [place] [address] Dr. Jame Hutton INSULINon 02-03-2022 Insulin 11.5 uIU/mL Normal 2.6-24.9 [facility] Comment on above: Performed By: #### I NSULIN #### [facility] [address] [place] [address] Dr. Jame Hutton CBC AUTO DIFFon 02-01-2022 BASO # 0.0 103/ul Normal 0.0-0.1 [facility] Comment on above: Performed By: #### C BC #### [facility] [address] [place] [address] Dr. Jame Hutton Basophils/100 WBC (Bld) 0.6 % Normal 0.2-2.0 [facility] Comment on above: Performed By: #### C BC #### [facility] [address] [place] [address] Dr. Jame Hutton EO # 0.1 103/ul Normal 0.0-0.7 [facility] Comment on above: Performed By: #### C BC #### [facility] [address] [place] [address] Dr. Jame Hutton Eosinophils/100 WBC (Bld) 0.8 % Critically low 0.9-7.0 [facility] Comment on above: Performed By: #### C BC #### [facility] [address] [place] [address] Dr. Jame Hutton Erythrocyte distribution width (RBC) [Ratio] 12.5 % Normal 11.0-15.0 [facility] Comment on above: Performed By: #### C BC #### [facility] [address] [place] [address] Dr. Jame Hutton Hematocrit (Bld) [Volume fraction] 43.5 % Normal 36.0-48.0 [facility] Comment on above: Performed By: #### C BC #### [facility] [address] [place] [address] Dr. Jame Hutton Hemoglobin (Bld) [Mass/Vol] 14.8 g/dL Normal 12.0-16.0 [facility] Comment on above: Performed By: #### C BC #### [facility] [address] [place] [address] Dr. Jame Hutton IG # 0.02 10e3/ul Normal 0.00-0.03 [facility] Comment on above: Performed By: #### C BC #### [facility] [address] [place] [address] Dr. Jame Hutton IG % 0.3 % Normal 0.0-0.5 [facility] Comment on above: Performed By: #### C BC #### [facility] [address] [place] [address] Dr. Jame Hutton LYMPH # 1.7 103/ul Normal 1.2-3.8 [facility] Comment on above: Performed By: #### C BC #### [facility] [address] [place] [address] Dr. Jame Hutton Lymphocytes/100 WBC (Bld) 23.3 % Normal 20.5-60.0 [facility] Comment on above: Performed By: #### C BC #### [facility] [address] [place] [address] Dr. Jame Hutton MANUAL DIFF REQ NO Normal [facility] Comment on above: Performed By: #### C BC #### [facility] [address] [place] [address] Dr. Jame Hutton MCH (RBC) [Entitic mass] 29.5 pg Normal 26.7-34.0 [facility] Comment on above: Performed By: #### C BC #### [facility] [address] [place] [address] Dr. Jame Hutton MCHC (RBC) [Mass/Vol] 34.0 g/dL Normal 29.9-35.2 [facility] Comment on above: Performed By: #### C BC #### [facility] [address] [place] [address] Dr. Jame Hutton MCV (RBC) [Entitic vol] 86.8 fL Normal 81.0-99.0 [facility] Comment on above: Performed By: #### C BC #### [facility] [address] [place] [address] Dr. Jame Hutton MONO # 0.4 103/ul Normal 0.3-0.8 [facility] Comment on above: Performed By: #### C BC #### [facility] [address] [place] [address] Dr. Jame Hutton Monocytes/100 WBC (Bld) 5.8 % Normal 1.7-12.0 [facility] Comment on above: Performed By: #### C BC #### [facility] [address] [place] [address] Dr. Jame Hutton NEUT # 5.0 103/ul Normal 1.4-6.5 [facility] Comment on above: Performed By: #### C BC #### [facility] [address] [place] [address] Dr. Jame Hutton Neutrophils/100 WBC (Bld) 69.2 % Normal 43.0-75.0 [facility] Comment on above: Performed By: #### C BC #### [facility] [address] [address] [address] Jame Hutton Platelet mean volume (Bld) [Entitic vol] 11.5 fL Normal 9.5-13.5 [facility] Comment on above: Performed By: #### C BC #### [facility] [address] [address] [address] Jame Hutton PLT 250 103/ul Normal 150-450 [facility] Comment on above: Performed By: #### C BC #### [facility] [address] [place] [address] Dr. Jame Hutton RBC 5.01 106/ul Normal 4.20-5.40 [facility] Comment on above: Performed By: #### C BC #### [facility] [address] [place] [address] Dr. Jame Hutton WBC 7.3 103/ul Normal 4.0-11.0 [facility] Comment on above: Performed By: #### C BC #### [facility] [address] [place] [address] Dr. Jame Hutton GLYCOHEMOGLOBIN A1Con 2021 ADA RECOMMENDATION SEE BELOW Normal [facility] Comment on above: Result Comment: ADA RECOMMENDED LIMIT 4.0 - 6.0 ADA THERAPEUTIC TARGET < 7.0 ACTION SUGGESTED > 7.0 Performed By: #### A 1C #### [facility] [address] [place] [address] Dr. Jame Hutton Glucose [Mass/Vol] 94 mg/dL Normal [facility] Comment on above: Performed By: #### A 1C #### [facility] [address] [place] [address] Dr. Jame Hutton HbA1c (Bld) [Mass fraction] 4.9 % Normal 4.5-6.2 [facility] Comment on above: Performed By: #### A 1C #### [facility] [address] [place] [address] Dr. Jame Hutton LIPID PROFILEon 10-26-2022 CHOL-HDL RATIO NORM SEE BELOW Normal [facility] Comment on above: Result Comment: 3.3 - 4.4 LOW RISK 4.4 - 7.1 AVERAGE RISK 7.1 - 11.0 MODERATE RISK >11.0 HIGH RISK Performed By: #### B MP, LIPID, TSH, LIVER #### [facility] [address] [address] [address] Jame Hutton Cholesterol [Mass/Vol] 182 mg/dL Normal <=200 [facility] Comment on above: Performed By: #### B MP, LIPID, TSH, LIVER #### [facility] [address] [address] [address] Jame Hutton Cholesterol in HDL [Mass/Vol] 41 mg/dL Normal 40-60 [facility] Comment on above: Performed By: #### B MP, LIPID, TSH, LIVER #### [facility] [address] [address] [address] Jame Hutton Cholesterol in LDL [Mass/Vol] 102.6 mg/dL Normal [facility] Comment on above: Performed By: #### B MP, LIPID, TSH, LIVER #### [facility] [address] [address] [address] Jame Hutton Cholesterol.total/Cho lesterol in HDL [Mass ratio] 4.4 {ratio} Normal [facility] Comment on above: Performed By: #### B MP, LIPID, TSH, LIVER #### [facility] [address] [address] [address] Jame Hutton HDL NORMAL > or = 60 mg/dl - LO W CARDIOVASCULAR RISK <40 mg/dl - HIGH CARDIOVASCULAR RISK Normal [facility] Comment on above: Performed By: #### B MP, LIPID, TSH, LIVER #### [facility] [address] [address] [address] Jame Hutton LDL CALC NORMAL SEE BELOW Normal [facility] Comment on above: Result Comment: <100 mg/dl OPTIMAL 100 - 129 mg/dl NEAR OR ABOVE OPTIMAL 130 - 159 mg/dl BORDERLINE HIGH 160 - 189 mg/dl HIGH >190 mg/dl VERY HIGH Performed By: #### B MP, LIPID, TSH, LIVER #### [facility] [address] [address] [address] Jame Hutton Triglyceride [Mass/Vol] 192 mg/dL Critically high <=150 [facility] Comment on above: Performed By: #### B MP, LIPID, TSH, LIVER #### [facility] [address] [address] [address] Jame Hutton VLDL CALC 38.4 mg/dL Normal [facility] Comment on above: Performed By: #### B MP, LIPID, TSH, LIVER #### [facility] [address] [address] [address] Jame Hutton LIVER PROFILEon 02-01-2022 Albumin [Mass/Vol] 4.5 g/dL Normal 3.4-5.0 [facility] Comment on above: Performed By: #### B MP, LIPID, TSH, LIVER #### [facility] [address] [place] [address] Dr. Jame Hutton Albumin/Globulin [Mass ratio] 1.3 {ratio} Normal [facility] Comment on above: Performed By: #### B MP, LIPID, TSH, LIVER #### [facility] [address] [address] [address] Jame Hutton ALP [Catalytic activity/Vol] 96 U/L Normal 46-116 [facility] Comment on above: Performed By: #### B MP, LIPID, TSH, LIVER #### [facility] [address] [address] [address] Jame Hutton ALT [Catalytic activity/Vol] 35 U/L Normal 14-59 [facility] Comment on above: Performed By: #### B MP, LIPID, TSH, LIVER #### [facility] [address] [address] [address] Jame Hutton AST [Catalytic activity/Vol] 16 U/L Normal 15-37 [facility] Comment on above: Performed By: #### B MP, LIPID, TSH, LIVER #### [facility] [address] [address] [address] Jame Hutton BILI, CONJUGATED 0.1 mg/dL Normal 0.0-0.2 [facility] Comment on above: Performed By: #### B MP, LIPID, TSH, LIVER #### [facility] [address] [address] [address] Jame Hutton Bilirubin [Mass/Vol] 0.2 mg/dL Normal 0.2-1.0 [facility] Comment on above: Performed By: #### B MP, LIPID, TSH, LIVER #### [facility] [address] [place] [address] Dr. Jame Hutton Globulin (S) [Mass/Vol] 3.4 g/dL Normal [facility] Comment on above: Performed By: #### B MP, LIPID, TSH, LIVER #### [facility] [address] [place] [address] Dr. Jame Hutton Protein [Mass/Vol] 7.9 g/dL Normal 6.4-8.2 [facility] Comment on above: Performed By: #### B MP, LIPID, TSH, LIVER #### [facility] [address] [place] [address] Dr. Jame Hutton PROF CHEM 8 (BAS METB)on Anion gap [Moles/Vol] 11.6 mmol/L Normal [facility] Comment on above: Performed By: #### B MP, LIPID, TSH, LIVER #### [facility] [address] [place] [address] Dr. Jame Hutton Calcium [Mass/Vol] 9.5 mg/dL Normal 8.5-10.1 [facility] Comment on above: Performed By: #### B MP, LIPID, TSH, LIVER #### [facility] [address] [place] [address] Dr. Jame Hutton Chloride [Moles/Vol] 102 mmol/L Normal 98-107 [facility] Comment on above: Performed By: #### B MP, LIPID, TSH, LIVER #### [facility] [address] [place] [address] Dr. Jame Hutton CO2 [Moles/Vol] 29.3 mmol/L Normal 21.0-32.0 [facility] Comment on above: Performed By: #### B MP, LIPID, TSH, LIVER #### [facility] [address] [address] [address] Jame Hutton Creatinine [Mass/Vol] 0.73 mg/dL Normal 0.55-1.02 [facility] Comment on above: Performed By: #### B MP, LIPID, TSH, LIVER #### [facility] [address] [address] [address] Jame Hutton EGFR-AF [place] >60 Normal >=60 [facility] Comment on above: Performed By: #### B MP, LIPID, TSH, LIVER #### [facility] [address] [address] [address] Jame Hutton EGFR-NON AF [place] >60 Normal >=60 [facility] Comment on above: Performed By: #### B MP, LIPID, TSH, LIVER #### [facility] [address] [address] [address] Jame Hutton Glucose [Mass/Vol] 87 mg/dL Normal 74-106 [facility] Comment on above: Performed By: #### B MP, LIPID, TSH, LIVER #### [facility] [address] [address] [address] Jame Hutton Potassium [Moles/Vol] 3.9 mmol/L Normal 3.5-5.1 [facility] Comment on above: Performed By: #### B MP, LIPID, TSH, LIVER #### [facility] [address] [address] [address] Jame Hutton Sodium [Moles/Vol] 139 mmol/L Normal 136-145 [facility] Comment on above: Performed By: #### B MP, LIPID, TSH, LIVER #### [facility] [address] [address] [address] Jame Hutton Urea nitrogen [Mass/Vol] 11.0 mg/dL Normal 7.0-18.0 [facility] Comment on above: Performed By: #### B MP, LIPID, TSH, LIVER #### [facility] [address] [address] [address] Jame Hutton Urea nitrogen/Creatinine [Mass ratio] 15.1 mg/mg Normal [facility] Comment on above: Performed By: #### B MP, LIPID, TSH, LIVER #### [facility] [address] [place] [address] Dr. Jame Hutton TSHon 02-01-2022 TSH 1.696 uIU/mL Normal 0.358-3.740 [facility] Comment on above: Performed By: #### B MP, LIPID, TSH, LIVER #### [facility] [address] [place] [address] Dr. Jame Hutton PAP ACOG PANEL 2: 21 to 29on 12-21-2021 . . Normal [facility] Comment on above: Performed By: #### 4 [id number] #### [facility] [address] [place] [address] Dr. Jame Hutton Age Gdln ACOG Testing - [facility] Comment on above: Performed By: #### 4 [id number] #### [facility] [address] [place] [address] Dr. Jame Hutton DIAGNOSIS: Comment Abnormal [facility] Comment on above: Result Comment: EPIT HELIAL CELL ABNORMALITY. LOW GRADE SQUAMOUS INTRAEPITHELIAL LESION (LSIL). Performed By: #### 4 [id number] #### [facility] [address] [place] [address] Dr. Jame Hutton Electronically signed by: Comment Normal [facility] Comment on above: Result Comment: Yohana Garsia MD, Pathologist Performed By: #### 4 [id number] #### [facility] [address] [place] [address] Dr. Jame uHtton Methodology: Comment Normal [facility] Comment on above: Result Comment: This liquid based ThinPrep(R) pap test was screened with the use of an image guided system. Performed By: #### 4 [id number] #### [facility] [address] [place] [address] Dr. Jame Hutton Note: Comment Normal [facility] Comment on above: Result Comment: The Pap smear is a screening test designed to aid in the detection of premalignant and malignant conditions of the uterine cervix. It is not a diagnostic procedure and should not be used as the sole means of detecting cervical cancer. Both false-positive and false-negative reports do occur. . Performed By: #### 4 [id number] #### [facility] [address] [address] [address] Jame Hutton Pathologist Provided ICD10 Comment Normal [facility] Comment on above: Result Comment: [id number] Performed By: #### 4 [id number] #### [facility] [address] [address] [address] Jame Hutton Performed by: Comment Normal [facility] Comment on above: Result Comment: Linn Kemp, Chemical Research Engineer (ASCP) Performed By: #### 4 [id number] #### [facility] [address] [place] [address] Dr. Jame Hutton Recommendation: Comment Abnormal [facility] Comment on above: Result Comment: Sugg est follow up as clinically appropriate. Performed By: #### 4 [id number] #### [facility] [address] [place] [address] Dr. Jame Hutton Reflex Criteria: Comment Normal [facility] Comment on above: Result Comment: The HPV DNA reflex criteria were not met with this specimen result therefore, no HPV testing was performed. . Performed By: #### 4 [id number] #### [facility] [address] [place] [address] Dr. Jame Hutton Specimen adequacy: Comment Normal [facility] Comment on above: Result Comment: Sati sfactory for evaluation. Endocervical and/or squamous metaplastic cells (endocervical component) are present. Performed By: #### 4 [id number] #### [facility] [address] [place] [address] Dr. Jame Hutton Encounters Encounter Date Encounter Type Care Provider Facility Start: 05-14-2023 End: 05-14-2023 ambulatory SHELLY SCHMID Not Available Start: 04-30-2023 End: 04-30-2023 ambulatory GHISLAINE VEGA Not Available Start: 04-16-2023 End: 04-16-2023 ambulatory SHELLY BINU Not Available Start: 03-29-2023 End: 03-29-2023 ambulatory GHISLAINE VEGA Not Available Start: 03-15-2023 End: 03-15-2023 ambulatory SHELLY SCHMID Not Available Start: 07-12-2022 End: 07-12-[address] SHELLY SCHMID . Facility:[facility] Start: 02-05-2022 Encounter for genera l adult medical examination without abnormal findings DR ANDRE HENAO [facility] Start: 02-01-2022 End: 02-02-[address] ANDRE HENAO Facility:[facility] Start: 02-01-2022 End: 02-02-2022 Encounter for general adult medical examination without abnormal findings DR ANDRE HENAO Facility:[facility] Start: 12-14-2021 End: 12-14-[address] SHELLY SCHMID . Facility: Payers Date Payer Category Payer Medicaid [id number] 2000 Unknown [id number] 2.16.84 [id number] 1998 Unknown [id number] 2.16.84 [id number] 1998 Unknown [id number] 2.16.84 [id number] 1998 Unknown [id number] 2.16.84 [id number] 1998 Unknown [id number] 2.16.84 [id number] 1998 Unknown [id number] 2.16.84 [id number] 1998 Unknown [id number] [id number] 1998 Unknown [id number] [id number] 1959 Unknown [id number] Summary Purpose Family History No Family History Records FoundNo Family History Records Found Advance Directives No Advanced Directives Records FoundNo Advanced Directives Records Found Additional Source Comments INFORMATION SOURCE (unrecogn ized section and content) DATE CREATED AUTHOR 07/21/2022 [facility] DATE CREATED AUTHOR AUTHOR'S KANIKA FARAH 05/15/2023 [facility] FOR RECORDS PERTAINING TO PATIENTS WHO [...] BE BASED ON THE PRIMARY CLINICAL RECORDS. [facility] [employer] provides no warranty or guarantee of the accuracy or completeness of information in this document.
[2023-05-16 16:58] VITALS: BP 129/76; PULSE 104
--- NOTE | 2023-05-16 17:24 | US_ITS ---
[address] [address] Patient Name: PAPITO BOSS MRN: [id number] date: 2000 Sex: F Assigned Patient Location: US Current Patient Location: US Accession/Order Number: [id number] Exam Date: 05/16/2023 17:28 Report Date: 05/17/2023 07:05 At the request of: SHELLY SCHMID Procedure: US OB BPP w non-stress EXAMINATION: US OB BPP w non-stress HISTORY: GESTATIONAL DIABETES MELLITUS O24.419 COMPARISON: No relevant comparison available. TECHNIQUE: Ultrasound biophysical profile was performed in the radiology department. non-reactive stress testing was performed by nursing staff in the birthing center. FINDINGS: BREATHING MOVEMENTS: 2.0 GROSS BODY MOVEMENTS: 2.0 TONE: 2.0 QUALITATIVE AMNIOTIC FLUID VOLUME: 2.0 PRESENTATION: BREECH HEART RATE: 156.1 bpm H.B./min AMNIOTIC FLUID VOLUME: 13.8 cm cm GESTATIONAL AGE: 36 weeks 4 days CONCLUSION: Total biophysical profile score: 8.0 Electronically authenticated by: REAGAN CALERO Date: 05/17/2023 07:05
== END 2023-05-16 17:52 | disposition home or self-care (01) ==
LOC: US 07:20 → FBC 16:52
PROVIDERS: PCP Family Medicine; Visit Provider Obstetrics & Gynecology
DX: O24.419 Gestational diabetes mellitus in pregnancy, unspecified control (principal); Z3A.36 36 weeks gestation of pregnancy
CPT/HCPCS: 76818

== ENCOUNTER 2023-05-19 07:37 | Outpatient (OUT) | payer BC, OTHER, SELFPAY ==
--- OUTSIDE RECORDS SUMMARY | 2023-05-19 07:39 | XMS_ITS | CCD ---
Author Name Unknown Address [address] [facility] [address] [place] [address] Organization [facility] Care Team Providers Care Data Processing Auditor Name Role Phone BINU ., DR BRAVO [...] (1 source) Naproxen Drug Allergy 07-02-2019 [facility] Repository Problems Active Problems Problem Classification [...] 21 to 29on 07-20-2022 . . Normal [facility] Comment on above: Performed By: #### [id number] #### [facility] [address] [place] [address] Dr. Jame Hutton Age Gdln ACOG Testing 21-29 Normal [facility] Comment on above: Performed By: #### [id number] #### [facility] [address] [place] [address] Dr. Jame Hutton DIAGNOSIS: Comment Abnormal [facility] Comment on above: Result Comment: EPIT HELIAL CELL ABNORMALITY. LOW GRADE SQUAMOUS INTRAEPITHELIAL LESION (LSIL). Performed By: #### 4 [id number] #### [facility] [address] [place] [address] Dr. Jame Hutton Electronically signed by: Comment Normal [facility] Comment on above: Result Comment: Yohana Garsia MD, Pathologist Performed By: #### 4 [id number] #### [facility] [address] [place] [address] Dr. Jame Hutton Methodology: Comment Normal [facility] Comment on above: Result Comment: This liquid based ThinPrep(R) pap test was screened with the use of an image guided system. Performed By: #### 4 [id number] #### [facility] [address] [place] [address] Dr. Jame Hutton Note: Comment Normal [facility] Comment on above: Result Comment: The Pap smear is a screening test designed to aid in the detection of premalignant and malignant conditions of the uterine cervix. It is not a diagnostic procedure and should not be used as the sole means of detecting cervical cancer. Both false-positive and false-negative reports do occur. . Performed By: #### 4 [id number] #### [facility] [address] [place] [address] Dr. Jame Hutton Pathologist Provided ICD10 Comment Normal [facility] Comment on above: Result Comment: R87. [id number] Performed By: #### 4 [id number] #### [facility] [address] [place] [address] Dr. Jame Hutton Performed by: Comment Normal [facility] Comment on above: Result Comment: Shivani Anderson, Travel Nurse (ASCP) Performed By: #### 4 [id number] #### [facility] [address] [place] [address] Dr. Jame Hutton Recommendation: Comment Abnormal [facility] Comment on above: Result Comment: Sugg est follow up as clinically appropriate. Performed By: #### 4 [id number] #### [facility] [address] [place] [address] Dr. Jame Hutton Reflex Criteria: Comment Normal [facility] Comment on above: Result Comment: The HPV DNA reflex criteria were not met with this specimen result therefore, no HPV testing was performed. . Performed By: #### 4 [id number] #### [facility] [address] [place] [address] Dr. Jame Hutton Specimen adequacy: Comment Normal [facility] Comment on above: Result Comment: Sati sfactory for evaluation. Endocervical and/or squamous metaplastic cells (endocervical component) are present. Areas of partially obscuring inflammatory exudate are present. Performed By: #### 4 [id number] #### [facility] [address] [place] [address] Dr. Jame Hutton INSULINon 02-03-2022 Insulin 11.5 uIU/mL Normal 2.6-24.9 [facility] Comment on above: Performed By: #### I NSULIN #### [facility] [address] [place] [address] Dr. Jame Hutton CBC AUTO DIFFon 02-01-2022 BASO # 0.0 103/ul Normal 0.0-0.1 [facility] Comment on above: Performed By: #### C BC #### [facility] [address] [place] [address] Dr. Jame Hutton Basophils/100 WBC (Bld) 0.6 % Normal 0.2-2.0 [facility] Comment on above: Performed By: #### C BC #### [facility] [address] [place] [address] Dr. Jame Hutton EO # 0.1 103/ul Normal 0.0-0.7 [facility] Comment on above: Performed By: #### C BC #### [facility] [address] [place] [address] Dr. Jame Hutton Eosinophils/100 WBC (Bld) 0.8 % Critically low 0.9-7.0 [facility] Comment on above: Performed By: #### C BC #### [facility] [address] [place] [address] Dr. Jame Hutton Erythrocyte distribution width (RBC) [Ratio] 12.5 % Normal 11.0-15.0 [facility] Comment on above: Performed By: #### C BC #### [facility] [address] [place] [address] Dr. Jame Hutton Hematocrit (Bld) [Volume fraction] 43.5 % Normal 36.0-48.0 [facility] Comment on above: Performed By: #### C BC #### [facility] [address] [place] [address] Dr. Jame Hutton Hemoglobin (Bld) [Mass/Vol] 14.8 g/dL Normal 12.0-16.0 [facility] Comment on above: Performed By: #### C BC #### [facility] [address] [place] [address] Dr. Jame Hutton IG # 0.02 10e3/ul Normal 0.00-0.03 [facility] Comment on above: Performed By: #### C BC #### [facility] [address] [place] [address] Dr. Jame Hutton IG % 0.3 % Normal 0.0-0.5 [facility] Comment on above: Performed By: #### C BC #### [facility] [address] [place] [address] Dr. Jame Hutton LYMPH # 1.7 103/ul Normal 1.2-3.8 [facility] Comment on above: Performed By: #### C BC #### [facility] [address] [place] [address] Dr. Jame Hutton Lymphocytes/100 WBC (Bld) 23.3 % Normal 20.5-60.0 [facility] Comment on above: Performed By: #### C BC #### [facility] [address] [place] [address] Dr. Jame Hutton MANUAL DIFF REQ NO Normal [facility] Comment on above: Performed By: #### C BC #### [facility] [address] [place] [address] Dr. Jame Hutton MCH (RBC) [Entitic mass] 29.5 pg Normal 26.7-34.0 [facility] Comment on above: Performed By: #### C BC #### [facility] [address] [place] [address] Dr. Jame Hutton MCHC (RBC) [Mass/Vol] 34.0 g/dL Normal 29.9-35.2 [facility] Comment on above: Performed By: #### C BC #### [facility] [address] [place] [address] Dr. Jame Hutton MCV (RBC) [Entitic vol] 86.8 fL Normal 81.0-99.0 [facility] Comment on above: Performed By: #### C BC #### [facility] [address] [place] [address] Dr. Jame Hutton MONO # 0.4 103/ul Normal 0.3-0.8 [facility] Comment on above: Performed By: #### C BC #### [facility] [address] [place] [address] Dr. Jame Hutton Monocytes/100 WBC (Bld) 5.8 % Normal 1.7-12.0 [facility] Comment on above: Performed By: #### C BC #### [facility] [address] [place] [address] Dr. Jame Hutton NEUT # 5.0 103/ul Normal 1.4-6.5 [facility] Comment on above: Performed By: #### C BC #### [facility] [address] [place] [address] Dr. Jame Hutton Neutrophils/100 WBC (Bld) 69.2 % Normal 43.0-75.0 [facility] Comment on above: Performed By: #### C BC #### [facility] [address] [address] [address] Jame Hutton Platelet mean volume (Bld) [Entitic vol] 11.5 fL Normal 9.5-13.5 [facility] Comment on above: Performed By: #### C BC #### [facility] [address] [address] [address] Jame Hutton PLT 250 103/ul Normal 150-450 [facility] Comment on above: Performed By: #### C BC #### [facility] [address] [place] [address] Dr. Jame Hutton RBC 5.01 106/ul Normal 4.20-5.40 [facility] Comment on above: Performed By: #### C BC #### [facility] [address] [place] [address] Dr. Jame Hutton WBC 7.3 103/ul Normal 4.0-11.0 [facility] Comment on above: Performed By: #### C BC #### [facility] [address] [place] [address] Dr. Jame Hutton GLYCOHEMOGLOBIN A1Con 2021 ADA RECOMMENDATION SEE BELOW Normal [facility] Comment on above: Result Comment: ADA RECOMMENDED LIMIT 4.0 - 6.0 ADA THERAPEUTIC TARGET < 7.0 ACTION SUGGESTED > 7.0 Performed By: #### A 1C #### [facility] [address] [place] [address] Dr. Jame Hutton Glucose [Mass/Vol] 94 mg/dL Normal [facility] Comment on above: Performed By: #### A 1C #### [facility] [address] [place] [address] Dr. Jame Hutton HbA1c (Bld) [Mass fraction] 4.9 % Normal 4.5-6.2 [facility] Comment on above: Performed By: #### A 1C #### [facility] [address] [place] [address] Dr. Jame Hutton LIPID PROFILEon 10-26-2022 CHOL-HDL RATIO NORM SEE BELOW Normal [facility] Comment on above: Result Comment: 3.3 - 4.4 LOW RISK 4.4 - 7.1 AVERAGE RISK 7.1 - 11.0 MODERATE RISK >11.0 HIGH RISK Performed By: #### B MP, LIPID, TSH, LIVER #### [facility] [address] [address] [address] Jame Hutton Cholesterol [Mass/Vol] 182 mg/dL Normal <=200 [facility] Comment on above: Performed By: #### B MP, LIPID, TSH, LIVER #### [facility] [address] [address] [address] Jame Hutton Cholesterol in HDL [Mass/Vol] 41 mg/dL Normal 40-60 [facility] Comment on above: Performed By: #### B MP, LIPID, TSH, LIVER #### [facility] [address] [address] [address] Jame Hutton Cholesterol in LDL [Mass/Vol] 102.6 mg/dL Normal [facility] Comment on above: Performed By: #### B MP, LIPID, TSH, LIVER #### [facility] [address] [address] [address] Jame Hutton Cholesterol.total/Cho lesterol in HDL [Mass ratio] 4.4 {ratio} Normal [facility] Comment on above: Performed By: #### B MP, LIPID, TSH, LIVER #### [facility] [address] [address] [address] Jame Hutton HDL NORMAL > or = 60 mg/dl - LO W CARDIOVASCULAR RISK <40 mg/dl - HIGH CARDIOVASCULAR RISK Normal [facility] Comment on above: Performed By: #### B MP, LIPID, TSH, LIVER #### [facility] [address] [address] [address] Jame Hutton LDL CALC NORMAL SEE BELOW Normal [facility] Comment on above: Result Comment: <100 mg/dl OPTIMAL 100 - 129 mg/dl NEAR OR ABOVE OPTIMAL 130 - 159 mg/dl BORDERLINE HIGH 160 - 189 mg/dl HIGH >190 mg/dl VERY HIGH Performed By: #### B MP, LIPID, TSH, LIVER #### [facility] [address] [address] [address] Jame Hutton Triglyceride [Mass/Vol] 192 mg/dL Critically high <=150 [facility] Comment on above: Performed By: #### B MP, LIPID, TSH, LIVER #### [facility] [address] [address] [address] Jame Hutton VLDL CALC 38.4 mg/dL Normal [facility] Comment on above: Performed By: #### B MP, LIPID, TSH, LIVER #### [facility] [address] [address] [address] Jame Hutton LIVER PROFILEon 02-01-2022 Albumin [Mass/Vol] 4.5 g/dL Normal 3.4-5.0 [facility] Comment on above: Performed By: #### B MP, LIPID, TSH, LIVER #### [facility] [address] [place] [address] Dr. Jame Hutton Albumin/Globulin [Mass ratio] 1.3 {ratio} Normal [facility] Comment on above: Performed By: #### B MP, LIPID, TSH, LIVER #### [facility] [address] [address] [address] Jame Hutton ALP [Catalytic activity/Vol] 96 U/L Normal 46-116 [facility] Comment on above: Performed By: #### B MP, LIPID, TSH, LIVER #### [facility] [address] [address] [address] Jame Hutton ALT [Catalytic activity/Vol] 35 U/L Normal 14-59 [facility] Comment on above: Performed By: #### B MP, LIPID, TSH, LIVER #### [facility] [address] [address] [address] Jame Hutton AST [Catalytic activity/Vol] 16 U/L Normal 15-37 [facility] Comment on above: Performed By: #### B MP, LIPID, TSH, LIVER #### [facility] [address] [address] [address] Jame Hutton BILI, CONJUGATED 0.1 mg/dL Normal 0.0-0.2 [facility] Comment on above: Performed By: #### B MP, LIPID, TSH, LIVER #### [facility] [address] [address] [address] Jame Hutton Bilirubin [Mass/Vol] 0.2 mg/dL Normal 0.2-1.0 [facility] Comment on above: Performed By: #### B MP, LIPID, TSH, LIVER #### [facility] [address] [place] [address] Dr. Jame Hutton Globulin (S) [Mass/Vol] 3.4 g/dL Normal [facility] Comment on above: Performed By: #### B MP, LIPID, TSH, LIVER #### [facility] [address] [place] [address] Dr. Jame Hutton Protein [Mass/Vol] 7.9 g/dL Normal 6.4-8.2 [facility] Comment on above: Performed By: #### B MP, LIPID, TSH, LIVER #### [facility] [address] [place] [address] Dr. Jame Hutton PROF CHEM 8 (BAS METB)on Anion gap [Moles/Vol] 11.6 mmol/L Normal [facility] Comment on above: Performed By: #### B MP, LIPID, TSH, LIVER #### [facility] [address] [place] [address] Dr. Jame Hutton Calcium [Mass/Vol] 9.5 mg/dL Normal 8.5-10.1 [facility] Comment on above: Performed By: #### B MP, LIPID, TSH, LIVER #### [facility] [address] [place] [address] Dr. Jame Hutton Chloride [Moles/Vol] 102 mmol/L Normal 98-107 [facility] Comment on above: Performed By: #### B MP, LIPID, TSH, LIVER #### [facility] [address] [place] [address] Dr. Jame Hutton CO2 [Moles/Vol] 29.3 mmol/L Normal 21.0-32.0 [facility] Comment on above: Performed By: #### B MP, LIPID, TSH, LIVER #### [facility] [address] [address] [address] Jame Hutton Creatinine [Mass/Vol] 0.73 mg/dL Normal 0.55-1.02 [facility] Comment on above: Performed By: #### B MP, LIPID, TSH, LIVER #### [facility] [address] [address] [address] Jame Hutton EGFR-AF BRUNEIAN >60 Normal >=60 [facility] Comment on above: Performed By: #### B MP, LIPID, TSH, LIVER #### [facility] [address] [address] [address] Jame Hutton EGFR-NON AF BRUNEIAN >60 Normal >=60 [facility] Comment on above: Performed By: #### B MP, LIPID, TSH, LIVER #### [facility] [address] [address] [address] Jame Hutton Glucose [Mass/Vol] 87 mg/dL Normal 74-106 [facility] Comment on above: Performed By: #### B MP, LIPID, TSH, LIVER #### [facility] [address] [address] [address] Jame Hutton Potassium [Moles/Vol] 3.9 mmol/L Normal 3.5-5.1 [facility] Comment on above: Performed By: #### B MP, LIPID, TSH, LIVER #### [facility] [address] [address] [address] Jame Hutton Sodium [Moles/Vol] 139 mmol/L Normal 136-145 [facility] Comment on above: Performed By: #### B MP, LIPID, TSH, LIVER #### [facility] [address] [address] [address] Jame Hutton Urea nitrogen [Mass/Vol] 11.0 mg/dL Normal 7.0-18.0 [facility] Comment on above: Performed By: #### B MP, LIPID, TSH, LIVER #### [facility] [address] [address] [address] Jame Hutton Urea nitrogen/Creatinine [Mass ratio] 15.1 mg/mg Normal [facility] Comment on above: Performed By: #### B MP, LIPID, TSH, LIVER #### [facility] [address] [place] [address] Dr. Jame Hutton TSHon 02-01-2022 TSH 1.696 uIU/mL Normal 0.358-3.740 [facility] Comment on above: Performed By: #### B MP, LIPID, TSH, LIVER #### [facility] [address] [place] [address] Dr. Jame Hutton PAP ACOG PANEL 2: 21 to 29on 12-21-2021 . . Normal [facility] Comment on above: Performed By: #### 4 [id number] #### [facility] [address] [place] [address] Dr. Jame Hutton Age Gdln ACOG Testing - [facility] Comment on above: Performed By: #### 4 [id number] #### [facility] [address] [place] [address] Dr. Jame Hutton DIAGNOSIS: Comment Abnormal [facility] Comment on above: Result Comment: EPIT HELIAL CELL ABNORMALITY. LOW GRADE SQUAMOUS INTRAEPITHELIAL LESION (LSIL). Performed By: #### 4 [id number] #### [facility] [address] [place] [address] Dr. Jame Hutton Electronically signed by: Comment Normal [facility] Comment on above: Result Comment: Yohana Garsia MD, Pathologist Performed By: #### 4 [id number] #### [facility] [address] [place] [address] Dr. Jame Hutton Methodology: Comment Normal [facility] Comment on above: Result Comment: This liquid based ThinPrep(R) pap test was screened with the use of an image guided system. Performed By: #### 4 [id number] #### [facility] [address] [place] [address] Dr. Jame Hutton Note: Comment Normal [facility] Comment on above: Result Comment: The Pap smear is a screening test designed to aid in the detection of premalignant and malignant conditions of the uterine cervix. It is not a diagnostic procedure and should not be used as the sole means of detecting cervical cancer. Both false-positive and false-negative reports do occur. . Performed By: #### 4 [id number] #### [facility] [address] [address] [address] Jame Hutton Pathologist Provided ICD10 Comment Normal [facility] Comment on above: Result Comment: R87. [id number] Performed By: #### 4 [id number] #### [facility] [address] [address] [address] Jame Hutton Performed by: Comment Normal [facility] Comment on above: Result Comment: Linn Kemp, Travel Nurse (ASCP) Performed By: #### 4 [id number] #### [facility] [address] [place] [address] Dr. Jame Hutton Recommendation: Comment Abnormal [facility] Comment on above: Result Comment: Sugg est follow up as clinically appropriate. Performed By: #### 4 [id number] #### [facility] [address] [place] [address] Dr. Jame Hutton Reflex Criteria: Comment Normal [facility] Comment on above: Result Comment: The HPV DNA reflex criteria were not met with this specimen result therefore, no HPV testing was performed. . Performed By: #### 4 [id number] #### [facility] [address] [place] [address] Dr. Jame Hutton Specimen adequacy: Comment Normal [facility] Comment on above: Result Comment: Sati sfactory for evaluation. Endocervical and/or squamous metaplastic cells (endocervical component) are present. Performed By: #### 4 [id number] #### [facility] [address] [place] [address] Dr. Jame Hutton Encounters Encounter Date Encounter [...] examination without abnormal findings DR ANDRE HENAO [facility] Start: 02-01-2022 End: 02-02-[address] ANDRE HENAO Facility:[facility] Start: 02-01-2022 End: 02-02-2022 Encounter for general adult medical examination without abnormal findings DR ANDRE HENAO Facility:[facility] Start: 12-14-2021 End: 12-14-[address] SHELLY SCHMID . Facility: Payers Date Payer Category Payer Medicaid [id number] 2000 Unknown [id number] 2.16.84 [id number] 2000 Unknown [id number] 2.16.84 [id number] 2000 Unknown [id number] 2.16.84 [id number] 2000 Unknown [id number] 2.16.84 [id number] 2000 Unknown [id number] 2.16.84 [id number] 1998 Unknown [id number] 2.16.84 [id number] 1998 Unknown [id number] 2.16.840 .[id number] 1998 Unknown [id number] 2.16.840 .[id number] 1961 Unknown [id number] Summary Purpose Family History No Family History Records FoundNo Family History Records Found Advance Directives No Advanced Directives Records FoundNo Advanced Directives Records Found Additional Source Comments INFORMATION SOURCE (unrecogn ized section and content) DATE CREATED AUTHOR 07/21/2022 [facility] DATE CREATED AUTHOR AUTHOR'S KANIKA FARAH 05/15/2023 [facility] FOR RECORDS PERTAINING TO PATIENTS WHO ARE [...] BE BASED ON THE PRIMARY CLINICAL RECORDS. [facility] [email or web address] provides no warranty or guarantee of the accuracy or completeness of information in this document.
[2023-05-19 09:12] VITALS: BP 128/78; PULSE 101
== END 2023-05-19 09:30 | disposition home or self-care (01) ==
LOC: FBCO 07:37 → FBC 09:08
PROVIDERS: PCP Family Medicine; Visit Provider Obstetrics & Gynecology
DX: O09.519 Supervision of elderly primigravida, unspecified trimester (principal); Z3A.00 Weeks of gestation of pregnancy not specified
CPT/HCPCS: 59025

== ENCOUNTER 2023-05-21 23:44 | Observation (INO) | payer BC, OTHER, SELFPAY ==
--- OUTSIDE RECORDS SUMMARY | 2023-05-21 23:49 | XMS_ITS | CCD ---
Author Name Unknown Address [address] [facility] [address] [place] [address] Organization [facility] Care Team Providers Care Gusset Ripper Name Role Phone LUIS ., DR BRAVO Attending Unavailable LUIS ., DR BRAVO Consulting Unavailable LUIS ., DR BRAVO Admitting Unavailable NADERER, DR ANDRE Shukla Primary Care Unavailable NADERER, DR ANDRE Shukla Attending Unavailable NADERER, DR ANDRE Shukla Consulting Unavailable NADERER, DR ANDRE Shukla Primary Care Unavailable NADERER, DR ANDRE Shukla Admitting Unavailable LUIS ., DR BRAVO Attending Unavailable LUIS ., DR BRAVO Consulting Unavailable LUIS ., DR BRAVO Admitting Unavailable NADERER, DR ANDRE Shukla Primary Care Unavailable LUIS, SHELLY Attending Unavailable SILVIA, GHISLAINE Attending Unavailable LUIS, SHELLY Attending Unavailable LUIS, SHELLY Attending Unavailable SILVIA, GHISLAINE Attending Unavailable Unavailable Primary Care Provider Unavailabl e Allergies Allergy Classification Reported Allergen(s) Allergy Type Date of Onset Reaction(s) Facility (1 source) Naproxen Drug Allergy 0 [facility] (1 source) Naproxen Drug Allergy 2 Anaphylaxis, Unknown [facility] Medications Current Medications Medication Drug Class(es) Dates Sig (Normalized) Sig (Original) Blood Glucose Monitoring Suppl (D-Care Glucometer) w/Device kit (1 source) Start: 03-08-2023 End: 03-07-2024 Blood Glucose Monitoring Suppl (D-Care Glucometer) w/Device kit Indications: Glucose intolerance 1 kit in the morning and 1 kit at noon and 1 kit in the evening and 1 kit before bedtime. 1 kit 0 03/08/2023 03/07/2024 Active Blood Glucose Monitoring Suppl (FreeStyle InsuLinx System) w/Device kit (1 source) Start: 03-08-2023 Blood Glucose Monitoring Suppl (FreeStyle InsuLinx System) w/Device kit Indications: Glucose intolerance Test daily before all meals/snacks and once before bedtime. 1 kit 0 03/08/2023 Active isopropyl alcohol 0.7 ml/ml medicated pad (1 source) Start: 03-08-2023 End: 03-07-2024 Alcohol Swabs (Alcohol Prep) 70 % pads Indications: Glucose intolerance 1 each in the morning and 1 each at noon and 1 each in the evening and 1 each before bedtime. Chech FSBS fasting and one hour after each meal for a total of 4 checks daily. 120 each 3 03/08/2023 03/07/2024 Active Jufoberl-Ewn-Hk-FA ( 1 + IRON PO) (1 source) Jfgibebn-Mzp-Hm-FA ( 1 + IRON PO) Take by mouth. 0 Active sertraline 100 mg oral tablet (1 source) Serotonin Reuptake Inhibitor take 1 tablet by mouth in the morning sertraline (Zoloft) 100 MG tablet Take 100 mg by mouth in the morning. 0 Active Problems Active Problems Problem Classification Problem Date Documented Date Episodic/Chronic Cancer of cervix (4 sources) Low grade squamous intraepithelial lesion on cytologic smear of cervix (LGSIL); Translations: [LGSIL ON CYTOLOGIC SMEAR OF CERVIX] Onset: 07-12-2022 Episodic Diabetes or abnormal glucose tolerance complicating ; childbirth; or the puerperium (1 source) Gestational diabetes mellitus, class A>1<; Translations: [Gestational diabetes mellitus in , diet controlled] Onset: 04-16-2023 04-16-2023 Episodic Other complications of (1 source) size does not accord with dates; Translations: [Uterine size-date discrepancy, unspecified trimester] Onset: 04-16-2023 04-16-2023 Episodic Other and delivery including normal (1 source) Third trimester ; Translations: [Encounter for supervision of normal , unspecified, third trimester] Onset: 04-16-2023 04-16-2023 Episodic Unclassified (1 source) OB Reminders Onset: 11-27-2022 11-27-2022 Past or Other Problems Problem Classification Problem [...] Comment on above: Performed By: #### [id number] #### [facility] [address] [address] [address] Jame Hutton Age Gdln ACOG Testing - Normal [facility] Comment on above: Performed By: #### 4 [id number] #### [facility] [address] [place] [address] Dr. Jame Hutton DIAGNOSIS: Comment Abnormal [facility] Comment on above: Result Comment: EPIT HELIAL CELL ABNORMALITY. LOW GRADE SQUAMOUS INTRAEPITHELIAL LESION (LSIL). Performed By: #### [id number] #### [facility] [address] [address] [address] Jame Hutton Electronically signed by: Comment Normal [facility] Comment on above: Result Comment: Yohana Garsia MD, Pathologist Performed By: #### [id number] #### [facility] [address] [address] [address] Jame Hutton Methodology: Comment [facility] Comment on above: Result Comment: This liquid based ThinPrep(R) pap test was screened with the use of an image guided system. Performed By: #### 4 [id number] #### [facility] [address] [address] [address] Jame Hutton Note: Comment Normal [facility] [...] do occur. . Performed By: #### 4 [id number] #### [facility] [address] [address] [address] Jame Hutton Pathologist Provided ICD10 Comment Normal [facility] Comment on above: Result Comment: R87. [id number] Performed By: #### 4 [id number] #### [facility] [address] [address] [address] Jame Hutton Performed by: Comment Normal [facility] Comment on above: Result Comment: Shivani Anderson, Grated Cheese Maker (ASCP) Performed By: #### 4 [id number] #### [facility] [address] [address] [address] Jame Hutton Recommendation: Comment Abnormal [facility] Comment on above: Result Comment: Sugg est follow up as clinically appropriate. Performed By: #### 4 [id number] #### [facility] [address] [place] [address] Dr. Jame Hutton Reflex Criteria: Comment Normal [facility] Comment on above: Result Comment: The HPV DNA reflex criteria were not met with this specimen result therefore, no HPV testing was performed. . Performed By: #### 4 [id number] #### [facility] [address] [address] [address] Jame Hutton Specimen adequacy: Comment Normal [facility] Comment on above: Result Comment: Sati sfactory for evaluation. Endocervical and/or squamous metaplastic cells (endocervical component) are present. Areas of partially obscuring inflammatory exudate are present. Performed By: #### 4 [id number] #### [facility] [address] [address] [address] Jame Hutton INSULINon 02-03-2022 Insulin 11.5 uIU/mL Normal 2.6-24.9 [facility] Comment on above: Performed By: #### I NSULIN #### [facility] [address] [address] [address] Jame Hutton CBC AUTO DIFFon 02-01-2022 BASO # 0.0 103/ul Normal 0.0-0.1 [facility] Comment on above: Performed By: #### C BC #### [facility] [address] [place] [address] Dr. Jame Hutton Basophils/100 WBC (Bld) 0.6 % Normal 0.2-2.0 [facility] Comment on above: Performed By: #### C BC #### [facility] [address] [place] [address] Dr. Jame Hutton EO # 0.1 103/ul Normal 0.0-0.7 [facility] Comment on above: Performed By: #### C BC #### [facility] [address] [place] [address] Dr. Jame Hutton Eosinophils/100 WBC (Bld) 0.8 % Critically low 0.9-7.0 [facility] Comment on above: Performed By: #### C BC #### [facility] [address] [place] [address] Dr. Jame Hutton Erythrocyte distribution width (RBC) [Ratio] 12.5 % Normal 11.0-15.0 [facility] Comment on above: Performed By: #### C BC #### [facility] [address] [place] [address] Dr. Jame Hutton Hematocrit (Bld) [Volume fraction] 43.5 % Normal 36.0-48.0 [facility] Comment on above: Performed By: #### C BC #### [facility] [address] [place] [address] Dr. Jame Hutton Hemoglobin (Bld) [Mass/Vol] 14.8 g/dL Normal 12.0-16.0 [facility] Comment on above: Performed By: #### C BC #### [facility] [address] [place] [address] Dr. Jame Hutton IG # 0.02 10e3/ul Normal 0.00-0.03 [facility] Comment on above: Performed By: #### C BC #### [facility] [address] [place] [address] Dr. Jame Hutton IG % 0.3 % Normal 0.0-0.5 [facility] Comment on above: Performed By: #### C BC #### [facility] [address] [place] [address] Dr. Jame Hutton LYMPH # 1.7 103/ul Normal 1.2-3.8 [facility] Comment on above: Performed By: #### C BC #### [facility] [address] [place] [address] Dr. Jame Hutton Lymphocytes/100 WBC (Bld) 23.3 % Normal 20.5-60.0 [facility] Comment on above: Performed By: #### C BC #### [facility] [address] [place] [address] Dr. Jame Hutton MANUAL DIFF REQ NO Normal [facility] Comment on above: Performed By: #### C BC #### [facility] [address] [place] [address] Dr. Jame Hutton MCH (RBC) [Entitic mass] 29.5 pg Normal 26.7-34.0 [facility] Comment on above: Performed By: #### C BC #### [facility] [address] [place] [address] Dr. Jame Hutton MCHC (RBC) [Mass/Vol] 34.0 g/dL Normal 29.9-35.2 [facility] Comment on above: Performed By: #### C BC #### [facility] [address] [place] [address] Dr. Jame Hutton MCV (RBC) [Entitic vol] 86.8 fL Normal 81.0-99.0 [facility] Comment on above: Performed By: #### C BC #### [facility] [address] [place] [address] Dr. Jame Hutton MONO # 0.4 103/ul Normal 0.3-0.8 [facility] Comment on above: Performed By: #### C BC #### [facility] [address] [place] [address] Dr. Jame Hutton Monocytes/100 WBC (Bld) 5.8 % Normal 1.7-12.0 [facility] Comment on above: Performed By: #### C BC #### [facility] [address] [place] [address] Dr. Jame Hutton NEUT # 5.0 103/ul Normal 1.4-6.5 [facility] Comment on above: Performed By: #### C BC #### [facility] [address] [place] [address] Dr. Jame Hutton Neutrophils/100 WBC (Bld) 69.2 % Normal 43.0-75.0 [facility] Comment on above: Performed By: #### C BC #### [facility] [address] [place] [address] Dr. Jame Hutton Platelet mean volume (Bld) [Entitic vol] 11.5 fL Normal 9.5-13.5 [facility] Comment on above: Performed By: #### C BC #### [facility] [address] [place] [address] Dr. Jame Hutton PLT 250 103/ul Normal 150-450 [facility] Comment on above: Performed By: #### C BC #### [facility] [address] [place] [address] Dr. Jame Hutton RBC 5.01 106/ul Normal 4.20-5.40 [facility] Comment on above: Performed By: #### C BC #### [facility] [address] [place] [address] Dr. Jame Hutton WBC 7.3 103/ul Normal 4.0-11.0 [facility] Comment on above: Performed By: #### C BC #### [facility] [address] [place] [address] Dr. Jame Hutton GLYCOHEMOGLOBIN A1Con 2021 ADA RECOMMENDATION SEE BELOW Normal [facility] Comment on above: Result Comment: ADA RECOMMENDED LIMIT 4.0 - 6.0 ADA THERAPEUTIC TARGET < 7.0 ACTION SUGGESTED > 7.0 Performed By: #### A 1C #### [facility] [address] [place] [address] Dr. Jame Hutton Glucose [Mass/Vol] 94 mg/dL Normal [facility] Comment on above: Performed By: #### A 1C #### [facility] [address] [place] [address] Dr. Jame Hutton HbA1c (Bld) [Mass fraction] 4.9 % Normal 4.5-6.2 [facility] Comment on above: Performed By: #### A 1C #### [facility] [address] [place] [address] Dr. Jame Hutton LIPID PROFILEon 02-01-2022 CHOL-HDL RATIO NORM SEE BELOW Normal [facility] Comment on above: Result Comment: 3.3 - 4.4 LOW RISK 4.4 - 7.1 AVERAGE RISK 7.1 - 11.0 MODERATE RISK >11.0 HIGH RISK Performed By: #### B MP, LIPID, TSH, LIVER #### [facility] [address] [place] [address] Dr. Jame Hutton Cholesterol [Mass/Vol] 182 mg/dL Normal <=200 [facility] Comment on above: Performed By: #### B MP, LIPID, TSH, LIVER #### [facility] [address] [place] [address] Dr. Jame Hutton Cholesterol in HDL [Mass/Vol] 41 mg/dL Normal 40-60 [facility] Comment on above: Performed By: #### B MP, LIPID, TSH, LIVER #### [facility] [address] [place] [address] Dr. Jame Hutton Cholesterol in LDL [Mass/Vol] 102.6 mg/dL Normal [facility] Comment on above: Performed By: #### B MP, LIPID, TSH, LIVER #### [facility] [address] [place] [address] Dr. Jame Hutton Cholesterol.total/Cho lesterol in HDL [Mass ratio] 4.4 {ratio} Normal [facility] Comment on above: Performed By: #### B MP, LIPID, TSH, LIVER #### [facility] [address] [place] [address] Dr. Jame Hutton HDL NORMAL > or = 60 mg/dl - LO W CARDIOVASCULAR RISK <40 mg/dl - HIGH CARDIOVASCULAR RISK Normal [facility] Comment on above: Performed By: #### B MP, LIPID, TSH, LIVER #### [facility] [address] [place] [address] Dr. Jame Hutton LDL CALC NORMAL SEE BELOW Normal [facility] Comment on above: Result Comment: <100 mg/dl OPTIMAL 100 - 129 mg/dl NEAR OR ABOVE OPTIMAL 130 - 159 mg/dl BORDERLINE HIGH 160 - 189 mg/dl HIGH >190 mg/dl VERY HIGH Performed By: #### B MP, LIPID, TSH, LIVER #### [facility] [address] [address] [address] Jame Hutton Triglyceride [Mass/Vol] 192 mg/dL Critically high <=150 [facility] Comment on above: Performed By: #### B MP, LIPID, TSH, LIVER #### [facility] [address] [address] [address] Jame Hutton VLDL CALC 38.4 mg/dL Normal [facility] Comment on above: Performed By: #### B MP, LIPID, TSH, LIVER #### [facility] [address] [place] [address] Dr. Jame Hutton LIVER PROFILEon 02-01-2022 Albumin [Mass/Vol] 4.5 g/dL Normal 3.4-5.[address] [facility] Comment on above: Performed By: #### B MP, LIPID, TSH, LIVER #### [facility] [address] [place] [address] Dr. Jame Hutton Albumin/Globulin [Mass ratio] 1.3 {ratio} Normal [facility] Comment on above: Performed By: #### B MP, LIPID, TSH, LIVER #### [facility] [address] [address] [address] Jame Hutton ALP [Catalytic activity/Vol] 96 U/L Normal 46-116 [facility] Comment on above: Performed By: #### B MP, LIPID, TSH, LIVER #### [facility] [address] [address] [address] Jame Hutton ALT [Catalytic activity/Vol] 35 U/L Normal 14-59 [facility] Comment on above: Performed By: #### B MP, LIPID, TSH, LIVER #### [facility] [address] [address] [address] Jame Hutton AST [Catalytic activity/Vol] 16 U/L Normal 15-37 [facility] Comment on above: Performed By: #### B MP, LIPID, TSH, LIVER #### [facility] [address] [place] [address] Dr. Jame Hutton BILI, CONJUGATED 0.1 mg/dL Normal 0.0-0.2 [facility] Comment on above: Performed By: #### B MP, LIPID, TSH, LIVER #### [facility] [address] [place] [address] Dr. Jame Hutton Bilirubin [Mass/Vol] 0.2 mg/dL Normal 0.2-1.0 [facility] Comment on above: Performed By: #### B MP, LIPID, TSH, LIVER #### [facility] [address] [place] [address] Dr. Jame Hutton Globulin (S) [Mass/Vol] 3.4 g/dL Normal [facility] Comment on above: Performed By: #### B MP, LIPID, TSH, LIVER #### [facility] [address] [place] [address] Dr. Jame Hutton Protein [Mass/Vol] 7.9 g/dL Normal 6.4-8.2 [facility] Comment on above: Performed By: #### B MP, LIPID, TSH, LIVER #### [facility] [address] [place] [address] Dr. Jame Hutton PROF CHEM 8 (BAS METB)on Anion gap [Moles/Vol] 11.6 mmol/L Normal [facility] Comment on above: Performed By: #### B MP, LIPID, TSH, LIVER #### [facility] [address] [place] [address] Dr. Jame Hutton Calcium [Mass/Vol] 9.5 mg/dL Normal 8.5-10.1 [facility] Comment on above: Performed By: #### B MP, LIPID, TSH, LIVER #### [facility] [address] [place] [address] Dr. Jame Hutton Chloride [Moles/Vol] 102 mmol/L Normal 98-107 [facility] Comment on above: Performed By: #### B MP, LIPID, TSH, LIVER #### [facility] [address] [address] [address] Jame Hutton CO2 [Moles/Vol] 29.3 mmol/L Normal 21.0-32.0 [facility] Comment on above: Performed By: #### B MP, LIPID, TSH, LIVER #### [facility] [address] [place] [address] Dr. Jame Hutton Creatinine [Mass/Vol] 0.73 mg/dL Normal 0.55-1.02 [facility] Comment on above: Performed By: #### B MP, LIPID, TSH, LIVER #### [facility] [address] [place] [address] Dr. Jame Hutton EGFR-AF MICRONESIAN >60 Normal >=60 [facility] Comment on above: Performed By: #### B MP, LIPID, TSH, LIVER #### [facility] [address] [place] [address] Dr. Jame Hutton EGFR-NON AF MICRONESIAN >60 Normal >=60 [facility] Comment on above: Performed By: #### B MP, LIPID, TSH, LIVER #### [facility] [address] [place] [address] Dr. Jame Hutton Glucose [Mass/Vol] 87 mg/dL Normal 74-[address] [facility] Comment on above: Performed By: #### B MP, LIPID, TSH, LIVER #### [facility] [address] [place] [address] Dr. Jame Hutton Potassium [Moles/Vol] 3.9 mmol/L Normal 3.5-5.1 [facility] Comment on above: Performed By: #### B MP, LIPID, TSH, LIVER #### [facility] [address] [place] [address] Dr. Jame Hutton Sodium [Moles/Vol] 139 mmol/L Normal 136-[address] [facility] Comment on above: Performed By: #### B MP, LIPID, TSH, LIVER #### [facility] [address] [place] [address] Dr. Jame Hutton Urea nitrogen [Mass/Vol] 11.0 mg/dL Normal 7.0-18.0 [facility] Comment on above: Performed By: #### B MP, LIPID, TSH, LIVER #### [facility] [address] [address] [address] Jame Hutton Urea nitrogen/Creatinine [Mass ratio] 15.1 mg/mg Normal [facility] Comment on above: Performed By: #### B MP, LIPID, TSH, LIVER #### [facility] [address] [address] [address] Jame Hutton TSHon 02-01-2022 TSH 1.696 uIU/mL Normal 0.358-3.740 [facility] Comment on above: Performed By: #### B MP, LIPID, TSH, LIVER #### [facility] [address] [place] [address] Dr. Jame Huttno PAP ACOG PANEL 2: 19 to 27on 12-21-2021 . . Normal [facility] Comment on above: Performed By: #### 4 [id number] #### [facility] [address] [place] [address] Dr. Jame Hutton Age Gdln ACOG Testing - [facility] Comment on above: Performed By: #### 4 [id number] #### [facility] [address] [place] [address] Dr. Jame Hutton DIAGNOSIS: Comment Abnormal [facility] Comment on above: Result Comment: EPIT HELIAL CELL ABNORMALITY. LOW GRADE SQUAMOUS INTRAEPITHELIAL LESION (LSIL). Performed By: #### 4 [id number] #### [facility] [address] [place] [address] Dr. Jame Hutton Electronically signed by: Comment Normal [facility] Comment on above: Result Comment: Yohana Garsia MD, Pathologist Performed By: #### 4 [id number] #### [facility] [address] [place] [address] Dr. Jame Hutton Methodology: Comment Normal [facility] Comment on above: Result Comment: This liquid based ThinPrep(R) pap test was screened with the use of an image guided system. Performed By: #### 4 [id number] #### [facility] [address] [address] [address] Jame Hutton Note: Comment Normal [facility] [...] do occur. . Performed By: #### 4 [id number] #### [facility] [address] [address] [address] Jame Hutton Pathologist Provided ICD10 Comment Normal [facility] Comment on above: Result Comment: [id number]. [id number] Performed By: #### 4 [id number] #### [facility] [address] [place] [address] Dr. Jame Hutton Performed by: Comment Normal [facility] Comment on above: Result Comment: Linn Kemp, Grated Cheese Maker (ASCP) Performed By: #### 4 [id number] #### [facility] [address] [place] [address] Dr. Jame Hutton Recommendation: Comment Abnormal [facility] Comment on above: Result Comment: Sugg est follow up as clinically appropriate. Performed By: #### 4 [id number] #### [facility] [address] [place] [address] Dr. Jame Hutton Reflex Criteria: Comment Normal [facility] Comment on above: Result Comment: The HPV DNA reflex criteria were not met with this specimen result therefore, no HPV testing was performed. . Performed By: #### 4 [id number] #### [facility] [address] [address] [address] Jame Hutton Specimen adequacy: Comment Normal [facility] Comment on above: Result Comment: Sati sfactory for evaluation. Endocervical and/or squamous metaplastic cells (endocervical component) are present. Performed By: #### 4 [id number] #### [facility] [address] [address] [address] Jame Hutton Encounters Encounter Date Encounter Type Care Provider Facility Start: 05-21-2023 Bamboo flowsheet Shelly Delgadoo D O Work Phone: [facility] Start: 05-21-2023 Bamboo flowsheet Shelly Smith D O Work Phone: [facility] Start: 05-14-2023 End: 05-14-2023 ambulatory SHELLY LUIS Not Available Start: 04-30-2023 End: 04-30-2023 ambulatory GHISLAINE SILVIA Not Available Start: 04-16-2023 End: 04-16-2023 ambulatory SHELLY LUIS Not Available Start: 03-29-2023 End: 03-29-2023 ambulatory GHISLAINE VEGA Not Available Start: 03-15-2023 End: 03-15-2023 ambulatory SHELLY LUIS Not Available Start: 07-12-2022 End: 07-12-[address] SHELLY SMITH . Facility:[facility] Start: 02-05-2022 Encounter for genera l adult medical examination without abnormal findings DR ANDRE HENAO [facility] Start: 02-01-2022 End: 02-02-[address] ANDRE HENAO Facility:[facility] Start: 02-01-2022 End: 02-02-2022 Encounter for general adult medical examination without abnormal findings DR ANDRE HENAO Facility:[facility] Start: 12-14-2021 End: 12-14-[address] SHELLY SMITH . Facility: Plan of Treatment Date Care Activity Detail Author Start: 05-21-2023 End: 05-21-2023 Patient encounter procedure 05/21/2023 2:00 PM EST Routine [facility] [address] [place] [id number] Shelly Smith, DO [address] [place] [address] Arrived [facility] Comment on above: Arrived Start: 12-08-2022 Influenza vaccination Influenza Vacc ine (#1) [facility] Payers Date Payer Category Payer Medicaid [id number] 2022 Medicaid [employer] [place] [id number] 2022-Present [address] [place] [address] [id number] 2020 Unknown BCBS BCBS [id number] 2020-Present [phone] [id number] [place] [address] [id number]. [id number] 1998 Unknown [id number] 2.16.840.1.403165.3.579.2.593 1998 Unknown [id number] 2.16.840.1.413652.3.579.2.593 1998 Unknown [id number] 2.16.840.1.725207.3.579.2.593 1998 Unknown [id number] 2.16.840.1.125933.3.579.2.1259 1998 Unknown [id number] 2.16.840.1.152228.3.579.2.1259 1998 Unknown [id number] 2.16.840.1.306414.3.579.2.1259 1998 Unknown [id number] 2.16.840.1.332675.3.579.2.1259 1998 Unknown [id number] 2.16.840.1.685249.3.579.2.1259 1959 Unknown [id number] Social History Date Type Detail Facility Start: 11-28-2022 Tobacco smoking stat [facility] Never smoked tobacco [facility] Start: 05-14-2023 Alcohol intake Lifetime non-d lidya (finding) [facility] Start: 11-28-2022 History of Social function [facility] Start: 11-28-2022 Tobacco use panel [facility] Start: 09-16-2022 [facility] Start: 1998 Sex Assigned At Female [facility] Start: 08-30-2022 Gender identity Identifies as female gender (finding) [facility] Medical Equipment Procedure Code Equipment Code Equipment Origin al Text Equipment Identifier Dates 1 each by In Vit ro route in the morning and 1 each at noon and 1 each in the evening and 1 each before bedtime. Check FSBS fasting and one hour after each meal for a total of 4 checks daily.. [id number] Start: 03-08-2023 End: 03-07-2024 1 each in the morning and 1 each at noon and 1 each in the evening and 1 each before bedtime. Check FSBS fasting and one hour after each meal for a total of four checks daily.. [id number] Start: 03-08-2023 End: 03-07-2024 Goals Date Patient Goal Desired Activity /State Personal health goal Summary Purpose Family History No Family History Records FoundNo Family History Records Found Advance Directives No Advanced Directives Records FoundNo Advanced Directives Records Found Additional Source Comments INFORMATION SOURCE (unrecogn ized section and content) DATE CREATED AUTHOR 07/21/2022 [facility] DATE CREATED AUTHOR AUTHOR'S ORGANIZ ATION 05/15/2023 [facility] EPIC FOR RECORDS PERTAINING [...] BE BASED ON THE PRIMARY CLINICAL RECORDS. [employer] provides no warranty or guarantee of the accuracy or completeness of information in this document.
[2023-05-22] VITALS: BP 124/71; PULSE 104
[2023-05-22 00:02] VITALS: TEMP 36.1
== END 2023-05-22 00:30 | disposition home or self-care (01) ==
PROVIDERS: Admitting Provider Obstetrics & Gynecology; PCP Family Medicine; Visit Provider Obstetrics & Gynecology
DX: O36.8130 Decreased fetal movements, third trimester, not applicable or unspecified (principal); Z3A.37 37 weeks gestation of pregnancy
CPT/HCPCS: 59025; G0378; G0379

== ENCOUNTER 2023-05-23 09:08 | Outpatient (OUT) | payer BC, OTHER, SELFPAY ==
--- OUTSIDE RECORDS SUMMARY | 2023-05-23 09:13 | XMS_ITS | CCD ---
Author Name Unknown Address [address] [place] [address] Organization [facility] Team Providers Care Playground Monitor Name Role Phone BINU ., DR BRAVO [...] NADERER, DR ANDRE Shukla Primary Care Unavailable Unavailable Primary Care Provider Unavailabl e SHELLY SMITH Attending Unavailable GHISLAINE VEGA Attending Unavailable BINUSHELLY ALBRECHT Attending Unavailable GHISLAINE VEGA Attending Unavailable BINU, SHELLY Attending Unavailable SHELLY SMITH Attending Unavailable Allergies Allergy Classification Reported Allergen(s) Allergy Type Date of Onset Reaction(s) Facility (1 source) Naproxen Drug Allergy 0 [facility] Repository (1 source) Naproxen Drug Allergy [...] daily. 120 each 3 03/08/2023 03/07/2024 Active Bvbedqnj-Dbq-Rg-FA ( 1 + IRON PO) (1 source) Mncgfskn-Iqs-Vo-FA ( 1 + IRON PO) Take by [...] 21 to 29on 07-20-2022 . . Normal [facility] Comment on above: Performed By: #### [id number] #### [facility] [address] [place] [address] Dr. Jame Hutton Age Gdln ACOG Testing Normal [facility] Comment on above: Performed By: #### 4 [id number] #### [facility] [address] [place] [address] Dr. Jame Hutton DIAGNOSIS: Comment Abnormal [facility] Comment on above: Result Comment: EPIT HELIAL CELL ABNORMALITY. LOW GRADE SQUAMOUS INTRAEPITHELIAL LESION (LSIL). Performed By: #### 4 [id number] #### [facility] [address] [address] [address] Jame Hutton Electronically signed by: Comment Normal [facility] Comment on above: Result Comment: Yohana Garsia MD, Pathologist Performed By: #### 4 [id number] #### [facility] [address] [place] [address] Dr. Jame Hutton Methodology: Comment [facility] Comment on above: Result Comment: This liquid based ThinPrep(R) pap test was screened with the use of an image guided system. Performed By: #### 4 [id number] #### [facility] [address] [place] [address] Dr. Jame Hutton Note: Comment Normal [facility] Comment on above: Result Comment: The Pap smear is a screening test designed to aid in the detection of premalignant and malignant conditions of the uterine cervix. It is not a diagnostic procedure and should not be used as the sole means of detecting cervical cancer. Both false-positive and false-negative reports do occur. . Performed By: #### 4 [id number] #### [facility] [address] [address] [address] Jame Hutton Pathologist Provided ICD10 Comment Normal [facility] Comment on above: Result Comment: R87. [id number] Performed By: #### 4 [id number] #### [facility] [address] [address] [address] Jame Huttno Performed by: Comment Normal [facility] Comment on above: Result Comment: Shivani Anderson, Lathe Mechanic (ASCP) Performed By: #### 4 [id number] #### [facility] [address] [place] [address] Dr. Jame Hutton Recommendation: Comment Abnormal [facility] Comment on above: Result Comment: Sugg est follow up as clinically appropriate. Performed By: #### 4 [id number] #### [facility] [address] [place] [address] Dr. Jame Hutton Reflex Criteria: Comment Normal [facility] Comment on above: Result Comment: The HPV DNA reflex criteria were not met with this specimen result therefore, no HPV testing was performed. . Performed By: #### 4 [id number] #### [facility] [address] [place] [address] Dr. Jame Hutton Specimen adequacy: Comment Normal [facility] Comment on above: Result Comment: Sati sfactory for evaluation. Endocervical and/or squamous metaplastic cells (endocervical component) are present. Areas of partially obscuring inflammatory exudate are present. Performed By: #### 4 [id number] #### [facility] [address] [place] [address] Dr. Jame Hutton INSULINon 02-03-2022 Insulin 11.5 uIU/mL Normal 2.6-24.9 [facility] Comment on above: Performed By: #### I NSULIN #### [facility] [address] [place] [address] Dr. Jame Hutton CBC AUTO DIFFon 02-01-2022 BASO # 0.0 103/ul Normal 0.0-0.1 [facility] Comment on above: Performed By: #### C BC #### [facility] [address] [address] [address] Jame Hutton Basophils/100 WBC (Bld) 0.6 % Normal 0.2-2.0 [facility] Comment on above: Performed By: #### C BC #### [facility] [address] [address] [address] Jame Hutton EO # 0.1 103/ul Normal 0.0-0.7 [facility] Comment on above: Performed By: #### C BC #### [facility] [address] [address] [address] Jame Hutton Eosinophils/100 WBC (Bld) 0.8 % Critically low 0.9-7.0 [facility] Comment on above: Performed By: #### C BC #### [facility] [address] [place] [address] Dr. Jame Hutton Erythrocyte distribution width (RBC) [Ratio] 12.5 % Normal 11.0-15.0 [facility] Comment on above: Performed By: #### C BC #### [facility] [address] [place] [address] Dr. Jame Hutton Hematocrit (Bld) [Volume fraction] 43.5 % Normal 36.0-48.0 [facility] Comment on above: Performed By: #### C BC #### [facility] [address] [place] [address] Dr. Jame Hutton Hemoglobin (Bld) [Mass/Vol] 14.8 g/dL Normal 12.0-16.0 [facility] Comment on above: Performed By: #### C BC #### [facility] [address] [place] [address] Dr. Jame Hutton IG # 0.02 10e3/ul Normal 0.00-0.03 [facility] Comment on above: Performed By: #### C BC #### [facility] [address] [place] [address] Dr. Jame Hutton IG % 0.3 % Normal 0.0-0.5 [facility] Comment on above: Performed By: #### C BC #### [facility] [address] [place] [address] Dr. Jame Hutton LYMPH # 1.7 103/ul Normal 1.2-3.8 [facility] Comment on above: Performed By: #### C BC #### [facility] [address] [place] [address] Dr. Jame Hutton Lymphocytes/100 WBC (Bld) 23.3 % Normal 20.5-60.0 [facility] Comment on above: Performed By: #### C BC #### [facility] [address] [place] [address] Dr. Jame Hutton MANUAL DIFF REQ NO Normal [facility] Comment on above: Performed By: #### C BC #### [facility] [address] [place] [address] Dr. Jame Hutton MCH (RBC) [Entitic mass] 29.5 pg Normal 26.7-34.0 [facility] Comment on above: Performed By: #### C BC #### [facility] [address] [place] [address] Dr. Jame Hutton MCHC (RBC) [Mass/Vol] 34.0 g/dL Normal 29.9-35.2 [facility] Comment on above: Performed By: #### C BC #### [facility] [address] [place] [address] Dr. Jame Hutton MCV (RBC) [Entitic vol] 86.8 fL Normal 81.0-99.0 [facility] Comment on above: Performed By: #### C BC #### [facility] [address] [place] [address] Dr. Jame Hutton MONO # 0.4 103/ul Normal 0.3-0.8 [facility] Comment on above: Performed By: #### C BC #### [facility] [address] [place] [address] Dr. Jame Hutton Monocytes/100 WBC (Bld) 5.8 % Normal 1.7-12.0 [facility] Comment on above: Performed By: #### C BC #### [facility] [address] [address] [address] Jame Hutton NEUT # 5.0 103/ul Normal 1.4-6.5 [facility] Comment on above: Performed By: #### C BC #### [facility] [address] [address] [address] Jame Hutton Neutrophils/100 WBC (Bld) 69.2 % Normal 43.0-75.0 [facility] Comment on above: Performed By: #### C BC #### [facility] [address] [place] [address] Dr. Jame Hutton Platelet mean volume (Bld) [Entitic vol] 11.5 fL Normal 9.5-13.5 [facility] Comment on above: Performed By: #### C BC #### [facility] [address] [place] [address] Dr. Jame Hutton PLT 250 103/ul Normal 150-450 [facility] Comment on above: Performed By: #### C BC #### [facility] [address] [place] [address] Dr. Jame Hutton RBC 5.01 106/ul Normal 4.20-5.40 [facility] Comment on above: Performed By: #### C BC #### [facility] [address] [place] [address] Dr. Jame Hutton WBC 7.3 103/ul Normal 4.0-11.0 [facility] Comment on above: Performed By: #### C BC #### [facility] [address] [place] [address] Dr. Jame Hutton GLYCOHEMOGLOBIN A1Con 2021 ADA RECOMMENDATION SEE BELOW Normal [facility] Comment on above: Result Comment: ADA RECOMMENDED LIMIT 4.0 - 6.0 ADA THERAPEUTIC TARGET < 7.0 ACTION SUGGESTED > 7.0 Performed By: #### A 1C #### [facility] [address] [place] [address] Dr. Jame Hutton Glucose [Mass/Vol] 94 mg/dL Normal [facility] Comment on above: Performed By: #### A 1C #### [facility] [address] [address] [address] Jame Hutton HbA1c (Bld) [Mass fraction] 4.9 % Normal 4.5-6.2 [facility] Comment on above: Performed By: #### A 1C #### [facility] [address] [place] [address] Dr. Jame Hutton LIPID PROFILEon 02-01-2022 CHOL-HDL RATIO NORM SEE BELOW Normal [facility] Comment on above: Result Comment: 3.3 - 4.4 LOW RISK 4.4 - 7.1 AVERAGE RISK 7.1 - 11.0 MODERATE RISK >11.0 HIGH RISK Performed By: #### B MP, LIPID, TSH, LIVER #### [facility] [address] [place] [address] Dr. Jame Hutton Cholesterol [Mass/Vol] 182 mg/dL Normal <=200 [facility] Comment on above: Performed By: #### B MP, LIPID, TSH, LIVER #### [facility] [address] [place] [address] Dr. Jame Hutton Cholesterol in HDL [Mass/Vol] 41 mg/dL Normal 40-60 [facility] Comment on above: Performed By: #### B MP, LIPID, TSH, LIVER #### [facility] [address] [place] [address] Dr. Jame Hutton Cholesterol in LDL [Mass/Vol] 102.6 mg/dL Normal [facility] Comment on above: Performed By: #### B MP, LIPID, TSH, LIVER #### [facility] [address] [place] [address] Dr. Jame Hutton Cholesterol.total/Cho lesterol in HDL [Mass ratio] 4.4 {ratio} Normal [facility] Comment on above: Performed By: #### B MP, LIPID, TSH, LIVER #### [facility] [address] [place] [address] Dr. Jame Hutton HDL NORMAL > or = 60 mg/dl - LO W CARDIOVASCULAR RISK <40 mg/dl - HIGH CARDIOVASCULAR RISK Normal [facility] Comment on above: Performed By: #### B MP, LIPID, TSH, LIVER #### [facility] [address] [address] [address] Jame Hutton LDL CALC NORMAL SEE BELOW Normal [facility] Comment on above: Result Comment: <100 mg/dl OPTIMAL 100 - 129 mg/dl NEAR OR ABOVE OPTIMAL 130 - 159 mg/dl BORDERLINE HIGH 160 - 189 mg/dl HIGH >190 mg/dl VERY HIGH Performed By: #### B MP, LIPID, TSH, LIVER #### [facility] [address] [address] [address] Jame Hutton Triglyceride [Mass/Vol] 192 mg/dL Critically high <=150 [facility] Comment on above: Performed By: #### B MP, LIPID, TSH, LIVER #### [facility] [address] [place] [address] Dr. Jame Hutton VLDL CALC 38.4 mg/dL Normal [facility] Comment on above: Performed By: #### B MP, LIPID, TSH, LIVER #### [facility] [address] [place] [address] Dr. Jame Hutton LIVER PROFILEon 02-01-2022 Albumin [Mass/Vol] 4.5 g/dL Normal 3.4-5.0 [facility] Comment on above: Performed By: #### B MP, LIPID, TSH, LIVER #### [facility] [address] [place] [address] Dr. Jame Hutton Albumin/Globulin [Mass ratio] 1.3 {ratio} Normal [facility] Comment on above: Performed By: #### B MP, LIPID, TSH, LIVER #### [facility] [address] [place] [address] Dr. Jame Hutton ALP [Catalytic activity/Vol] 96 U/L Normal 46-116 [facility] Comment on above: Performed By: #### B MP, LIPID, TSH, LIVER #### [facility] [address] [place] [address] Dr. Jame Hutton ALT [Catalytic activity/Vol] 35 U/L Normal 14-59 [facility] Comment on above: Performed By: #### B MP, LIPID, TSH, LIVER #### [facility] [address] [place] [address] Dr. Jame Hutton AST [Catalytic activity/Vol] 16 U/L Normal 15-37 [facility] Comment on above: Performed By: #### B MP, LIPID, TSH, LIVER #### [facility] [address] [place] [address] Dr. Jame Hutton BILI, CONJUGATED 0.1 mg/dL Normal 0.0-0.2 [facility] Comment on above: Performed By: #### B MP, LIPID, TSH, LIVER #### [facility] [address] [place] [address] Dr. Jame Htuton Bilirubin [Mass/Vol] 0.2 mg/dL Normal 0.2-1.0 [facility] Comment on above: Performed By: #### B MP, LIPID, TSH, LIVER #### [facility] [address] [place] [address] Dr. Jame Hutton Globulin (S) [Mass/Vol] 3.4 g/dL Normal [facility] Comment on above: Performed By: #### B MP, LIPID, TSH, LIVER #### [facility] [address] [place] [address] Dr. Jame Hutton Protein [Mass/Vol] 7.9 g/dL Normal 6.4-8.2 [facility] Comment on above: Performed By: #### B MP, LIPID, TSH, LIVER #### [facility] [address] [place] [address] Dr. Jame Hutton PROF CHEM 8 (BAS METB)on Anion gap [Moles/Vol] 11.6 mmol/L Normal [facility] Comment on above: Performed By: #### B MP, LIPID, TSH, LIVER #### [facility] [address] [place] [address] Dr. Jame Hutton Calcium [Mass/Vol] 9.5 mg/dL Normal 8.5-10.1 [facility] Comment on above: Performed By: #### B MP, LIPID, TSH, LIVER #### [facility] [address] [place] [address] Dr. Jame Hutton Chloride [Moles/Vol] 102 mmol/L Normal 98-107 [facility] Comment on above: Performed By: #### B MP, LIPID, TSH, LIVER #### [facility] [address] [address] [address] Jame Hutton CO2 [Moles/Vol] 29.3 mmol/L Normal 21.0-32.0 [facility] Comment on above: Performed By: #### B MP, LIPID, TSH, LIVER #### [facility] [address] [address] [address] Jame Hutton Creatinine [Mass/Vol] 0.73 mg/dL Normal 0.55-1.02 [facility] Comment on above: Performed By: #### B MP, LIPID, TSH, LIVER #### [facility] [address] [place] [address] Dr. Jame Hutton EGFR-AF UGANDAN >60 Normal >=60 [facility] Comment on above: Performed By: #### B MP, LIPID, TSH, LIVER #### [facility] [address] [place] [address] Dr. Jame Hutton EGFR-NON AF UGANDAN >60 Normal >=60 [facility] Comment on above: Performed By: #### B MP, LIPID, TSH, LIVER #### [facility] [address] [place] [address] Dr. Jame Hutton Glucose [Mass/Vol] 87 mg/dL Normal 74-106 [facility] Comment on above: Performed By: #### B MP, LIPID, TSH, LIVER #### [facility] [address] [place] [address] Dr. Jame Hutton Potassium [Moles/Vol] 3.9 mmol/L Normal 3.5-5.1 [facility] Comment on above: Performed By: #### B MP, LIPID, TSH, LIVER #### [facility] [address] [place] [address] Dr. Jame Hutton Sodium [Moles/Vol] 139 mmol/L Normal 136-145 [facility] Comment on above: Performed By: #### B MP, LIPID, TSH, LIVER #### [facility] [address] [address] [address] Jame Hutton Urea nitrogen [Mass/Vol] 11.0 mg/dL Normal 7.0-18.0 [facility] Comment on above: Performed By: #### B MP, LIPID, TSH, LIVER #### [facility] [address] [address] [address] Jame Hutton Urea nitrogen/Creatinine [Mass ratio] 15.1 mg/mg Normal [facility] Comment on above: Performed By: #### B MP, LIPID, TSH, LIVER #### [facility] [address] [address] [address] Jame Hutton TSHon 02-01-2022 TSH 1.696 uIU/mL Normal 0.358-3.740 [facility] Comment on above: Performed By: #### B MP, LIPID, TSH, LIVER #### [facility] [address] [place] [address] Dr. Jame Hutton PAP ACOG PANEL 2: 21 to 29on 12-21-2021 . . Normal [facility] Comment on above: Performed By: #### 4 [id number] #### [facility] [address] [place] [address] Dr. Jame Hutton Age Gdln ACOG Testing [facility] Comment on above: Performed By: #### 4 [id number] #### [facility] [address] [place] [address] Dr. Jame Hutton DIAGNOSIS: Comment Abnormal [facility] Comment on above: Result Comment: EPIT HELIAL CELL ABNORMALITY. LOW GRADE SQUAMOUS INTRAEPITHELIAL LESION (LSIL). Performed By: #### 4 [id number] #### [facility] [address] [place] [address] Dr. Jame Hutton Electronically signed by: Comment Normal [facility] Comment on above: Result Comment: Yohana Garsia MD, Pathologist Performed By: #### 4 [id number] #### [facility] [address] [place] [address] Dr. Jame Hutton Methodology: Comment Normal [facility] Comment on above: Result Comment: This liquid based ThinPrep(R) pap test was screened with the use of an image guided system. Performed By: #### 4 [id number] #### [facility] [address] [place] [address] Dr. Jame Hutton Note: Comment Normal [facility] Comment on above: Result Comment: The Pap smear is a screening test designed to aid in the detection of premalignant and malignant conditions of the uterine cervix. It is not a diagnostic procedure and should not be used as the sole means of detecting cervical cancer. Both false-positive and false-negative reports do occur. . Performed By: #### 4 [id number] #### [facility] [address] [place] [address] Dr. Jame Hutton Pathologist Provided ICD10 Comment Normal [facility] Comment on above: Result Comment: R87. [id number] Performed By: #### [id number] #### [facility] [address] [place] [address] Dr. Jame Hutton Performed by: Comment Normal [facility] Comment on above: Result Comment: Linn Kemp, Lathe Mechanic (ASCP) Performed By: #### 4 [id number] #### [facility] [address] [place] [address] Dr. Jame Hutton Recommendation: Comment Abnormal [facility] Comment on above: Result Comment: Sugg est follow up as clinically appropriate. Performed By: #### 4 [id number] #### [facility] [address] [place] [address] Dr. Jame Hutton Reflex Criteria: Comment Normal [facility] Comment on above: Result Comment: The HPV DNA reflex criteria were not met with this specimen result therefore, no HPV testing was performed. . Performed By: #### 4 [id number] #### [facility] [address] [place] [address] Dr. Jame Hutton Specimen adequacy: Comment Normal [facility] Comment on above: Result Comment: Sati sfactory for evaluation. Endocervical and/or squamous metaplastic cells (endocervical component) are present. Performed By: #### 4 [id number] #### [facility] [address] [place], [place] [id number] Dr. Jame Hutton Encounters Encounter Date Encounter Type Care Provider Facility Start: 05-21-2023 End: 05-21-2023 ambulatory SHELLY SMITH Not Available Start: 05-21-2023 Bamboo flowsheet Shelly Smith D O Work Phone: [facility] Start: 05-21-2023 Bamboo flowsheet Shelly Smith D O Work Phone: [facility] Start: 05-14-2023 End: 05-14-2023 ambulatory SHELLY SMITH Not Available Start: 04-30-2023 End: 04-30-2023 ambulatory GHISLAINE VEGA Not Available Start: 04-16-2023 End: 04-16-2023 ambulatory SHELLY SMITH Not Available Start: 03-29-2023 End: 03-29-2023 ambulatory GHISLAINE VEGA Not Available Start: 03-15-2023 End: 03-15-2023 ambulatory SHELLY SMITH Not Available Start: 07-12-2022 End: 07-12-[address] SHELLY SMITH . Facility:[facility] Start: 02-05-2022 Encounter for genera l adult medical examination without abnormal findings DR ANDRE HENAO [facility] Start: 02-01-2022 End: 02-02-[address] ANDRE HENAO Facility:[facility] Start: 02-01-2022 End: 02-02-2022 Encounter for general adult medical examination without abnormal findings DR ANDRE HENAO Facility:[facility] Start: 12-14-2021 End: 12-14-[address] SHELLY SMITH . Facility: Plan of Treatment Date Care Activity Detail Author Start: 05-21-2023 End: 05-21-2023 Patient encounter procedure 05/21/2023 2:00 PM EST Routine [facility] [address] [facility] [facility] [facility] [place] [id number] Shelly Smith DO [address] [place] [address] Arrived [facility] Comment on above: Arrived Start: 12-08-2022 Influenza vaccination Influenza Vacc ine (#1) [facility] Payers Date Payer Category Payer Medicaid [employer] [place] [id number] 2022-Present [address] [place] [address] [id number] 2022 Medicaid [id number] 2020 Unknown BCBS BCBS xxxxxx [id number] 2020-Present [phone] [address] [place] [address] [id number] 1998 Unknown [id number] 1998 Unknown [id number] 1998 Unknown [id number] 1998 Unknown [id number] 1998 Unknown [id number] 1998 Unknown [id number] [id number] 1998 Unknown [id number] [id number] 1998 Unknown [id number] 1998 Unknown [id number] 1959 Unknown [id number] Social History Date Type Detail Facility Start: 11-28-2022 Tobacco smoking stat [facility] Never smoked tobacco [facility] Start: 05-14-2023 Alcohol intake Lifetime non-d lidya (finding) [facility] Start: 11-28-2022 History of Social function [facility] Start: 11-28-2022 Tobacco use panel [facility] Start: 09-16-2022 [facility] Start: 2000 Sex Assigned At Female [facility] Start: 08-30-2022 Gender identity Identifies as female gender (finding) [facility] Medical Equipment Procedure Code Equipment Code Equipment Origin al Text Equipment Identifier Dates 1 each by In Vit ro route in the morning and 1 each at noon and 1 each in the evening and 1 each before bedtime. Check FSBS fasting and one hour after each meal for a total of 4 checks daily.. [id number] Start: 03-08-2023 End: 03-07-2024 1 each in the morning and 1 each at noon and 1 each in the evening and 1 each before bedtime. Check FSBS fasting and one hour after each meal for a total of four checks daily.. [id number] Start: 03-08-2023 End: 03-07-2024 Goals Date Patient Goal Desired Activity /State Personal health goal Summary Purpose Family History No Family History Records FoundNo Family History Records Found Advance Directives No Advanced Directives Records FoundNo Advanced Directives Records Found Additional Source Comments INFORMATION SOURCE (unrecogn ized section and content) DATE CREATED AUTHOR 07/21/2022 [facility] DATE CREATED AUTHOR AUTHOR'Dmitri FARAH 05/22/2023 [facility] FOR RECORDS PERTAINING TO PATIENTS WHO [...] BE BASED ON THE PRIMARY CLINICAL RECORDS. [employer] provides no warranty or guarantee of the accuracy or completeness of information in this document.
[2023-05-23 17:09] VITALS: BP 137/80; PULSE 99
--- NOTE | 2023-05-23 17:22 | US_ITS ---
[address] [address] Patient Name: PAPITO BOSS MRN: [id number] date: 2000 Sex: F Assigned Patient Location: [facility] Current Patient Location: Accession/Order Number: [id number] Exam Date: 05/23/2023 17:39 Report Date: 05/24/2023 07:13 At the request of: SHELLY SCHMID Procedure: US OB BPP w non-stress EXAMINATION: US OB BPP w non-stress HISTORY: GESTATIONAL DIABETES MELLITUS O24.419 COMPARISON: Ultrasound OB biophysical 05/16/2023 TECHNIQUE: Ultrasound biophysical profile was performed in the radiology department. BREATHING MOVEMENTS: 2.0 GROSS BODY MOVEMENTS: 2.0 TONE: 2.0 QUALITATIVE AMNIOTIC FLUID VOLUME: 2.0 PRESENTATION: BREECH HEART RATE: 126.2 bpm bpm. AMNIOTIC FLUID VOLUME: 14.0 cm GESTATIONAL AGE: 37 weeks 4 days CONCLUSION: Total biophysical profile score 8.0. Electronically authenticated by: SAUL HOBBS Date: 05/24/2023 07:13
== END 2023-05-23 18:15 | disposition home or self-care (01) ==
LOC: US 09:08 → FBC 17:05
PROVIDERS: PCP Family Medicine; Visit Provider Obstetrics & Gynecology
DX: O24.419 Gestational diabetes mellitus in pregnancy, unspecified control (principal); Z3A.37 37 weeks gestation of pregnancy
CPT/HCPCS: 76818

== ENCOUNTER 2023-05-26 07:15 | Outpatient (OUT) | payer BC, OTHER, SELFPAY ==
--- OUTSIDE RECORDS SUMMARY | 2023-05-26 07:32 | XMS_ITS | CCD ---
Author Name Unknown Address [address] [place] [address] Organization [facility] Team Providers Care Night Warehouse Selector Name Role Phone BINU ., DR BRAVO [...] Unavailable BINU ., DR BRAVO Consulting Unavailable IBNU ., DR BRAVO Admitting Unavailable NADERER, DR ANDRE Shukla Primary Care Unavailable Unavailable Primary Care Provider Unavailabl e SHELLY SMITH Attending Unavailable GHISLAINE VEGA Attending Unavailable BINUSHELLY ALBRECHT Attending Unavailable GHISLAINE VEGA Attending Unavailable BINU, SHELLY Attending Unavailable SHELLY SMITH Attending Unavailable Allergies Allergy Classification Reported Allergen(s) Allergy Type Date of Onset Reaction(s) Facility (1 source) Naproxen Drug Allergy 0 [facility] Repository (1 source) Naproxen Drug Allergy [...] daily. 120 each 3 03/08/2023 03/07/2024 Active Hkzekjdf-Pqs-Jr-FA ( 1 + IRON PO) (1 source) Gqiahjgc-Xxy-Nz-FA ( 1 + IRON PO) Take by [...] 21 to 29on 07-20-2022 . . Normal [facility] Comment on above: Performed By: #### 4 [id number] #### [facility] [address] [place] [address] Dr. Jame Hutton Age Gdln ACOG Testing Normal [facility] Comment on above: Performed By: #### 4 [id number] #### [facility] [address] [place] [address] Dr. Jame Hutton DIAGNOSIS: Comment Abnormal [facility] Comment on above: Result Comment: EPIT HELIAL CELL ABNORMALITY. LOW GRADE SQUAMOUS INTRAEPITHELIAL LESION (LSIL). Performed By: #### 4 [id number] #### [facility] [address] [address] [address] Jame Hutton Electronically signed by: Comment Normal [facility] Comment on above: Result Comment: Yohana Garsia MD, Pathologist Performed By: #### 4 [id number] #### [facility] [address] [place] [address] Dr. Jame Hutton Methodology: Comment [facility] Comment on above: Result Comment: This liquid based ThinPrep(R) pap test was screened with the use of an image guided system. Performed By: #### 4 [id number] #### [facility] [address] [place] [address] Dr. Jame Hutton Note: Comment Normal [facility] Comment on above: Result Comment: The Pap smear is a screening test designed to aid in the detection of premalignant and malignant conditions of the uterine cervix. It is not a diagnostic procedure and should not be used as the sole means of detecting cervical cancer. Both false-positive and false-negative reports do occur. . Performed By: #### 4 [id number] #### [facility] [address] [address] [address] Jame Hutton Pathologist Provided ICD10 Comment Normal [facility] Comment on above: Result Comment: [id number] Performed By: #### 4 [id number] #### [facility] [address] [address] [address] Jame Hutton Performed by: Comment Normal [facility] Comment on above: Result Comment: Shivani Anderson, Snorkelling Instructor (ASCP) Performed By: #### 4 [id number] #### [facility] [address] [place] [address] Dr. Jame Hutton Recommendation: Comment Abnormal [facility] Comment on above: Result Comment: Sugg est follow up as clinically appropriate. Performed By: #### 4 [id number] #### [facility] [address] [place] [address] Dr. Jame Hutton Reflex Criteria: Comment Normal [facility] Comment on above: Result Comment: The HPV DNA reflex criteria were not met with this specimen result therefore, no HPV testing was performed. . Performed By: #### 4 [id number] #### [facility] [address] [place] [address] Dr. Jame Hutton Specimen adequacy: Comment Normal [facility] Comment on above: Result Comment: Sati sfactory for evaluation. Endocervical and/or squamous metaplastic cells (endocervical component) are present. Areas of partially obscuring inflammatory exudate are present. Performed By: #### 4 [id number] #### [facility] [address] [place] [address] Dr. Jame Hutton INSULINon 02-03-2022 Insulin 11.5 uIU/mL Normal 2.6-24.9 [facility] Comment on above: Performed By: #### I NSULIN #### [facility] [address] [place] [address] Dr. Jame Hutton CBC AUTO DIFFon 02-01-2022 BASO # 0.0 103/ul Normal 0.0-0.1 [facility] Comment on above: Performed By: #### C BC #### [facility] [address] [address] [address] Jame Hutton Basophils/100 WBC (Bld) 0.6 % Normal 0.2-2.0 [facility] Comment on above: Performed By: #### C BC #### [facility] [address] [address] [address] Jame Hutton EO # 0.1 103/ul Normal 0.0-0.7 [facility] Comment on above: Performed By: #### C BC #### [facility] [address] [address] [address] Jame Hutton Eosinophils/100 WBC (Bld) 0.8 % Critically low 0.9-7.0 [facility] Comment on above: Performed By: #### C BC #### [facility] [address] [place] [address] Dr. Jame Hutton Erythrocyte distribution width (RBC) [Ratio] 12.5 % Normal 11.0-15.0 [facility] Comment on above: Performed By: #### C BC #### [facility] [address] [place] [address] Dr. Jame Hutton Hematocrit (Bld) [Volume fraction] 43.5 % Normal 36.0-48.0 [facility] Comment on above: Performed By: #### C BC #### [facility] [address] [place] [address] Dr. Jame Hutton Hemoglobin (Bld) [Mass/Vol] 14.8 g/dL Normal 12.0-16.0 [facility] Comment on above: Performed By: #### C BC #### [facility] [address] [place] [address] Dr. Jame Hutton IG # 0.02 10e3/ul Normal 0.00-0.03 [facility] Comment on above: Performed By: #### C BC #### [facility] [address] [place] [address] Dr. Jame Hutton IG % 0.3 % Normal 0.0-0.5 [facility] Comment on above: Performed By: #### C BC #### [facility] [address] [place] [address] Dr. Jame Hutton LYMPH # 1.7 103/ul Normal 1.2-3.8 [facility] Comment on above: Performed By: #### C BC #### [facility] [address] [place] [address] Dr. Jame Hutton Lymphocytes/100 WBC (Bld) 23.3 % Normal 20.5-60.0 [facility] Comment on above: Performed By: #### C BC #### [facility] [address] [place] [address] Dr. Jame Hutton MANUAL DIFF REQ NO Normal [facility] Comment on above: Performed By: #### C BC #### [facility] [address] [place] [address] Dr. Jame Hutton MCH (RBC) [Entitic mass] 29.5 pg Normal 26.7-34.0 [facility] Comment on above: Performed By: #### C BC #### [facility] [address] [place] [address] Dr. Jame Hutton MCHC (RBC) [Mass/Vol] 34.0 g/dL Normal 29.9-35.2 [facility] Comment on above: Performed By: #### C BC #### [facility] [address] [place] [address] Dr. Jame Hutton MCV (RBC) [Entitic vol] 86.8 fL Normal 81.0-99.0 [facility] Comment on above: Performed By: #### C BC #### [facility] [address] [place] [address] Dr. Jame Hutton MONO # 0.4 103/ul Normal 0.3-0.8 [facility] Comment on above: Performed By: #### C BC #### [facility] [address] [place] [address] Dr. Jame Hutton Monocytes/100 WBC (Bld) 5.8 % Normal 1.7-12.0 [facility] Comment on above: Performed By: #### C BC #### [facility] [address] [address] [address] Jame Hutton NEUT # 5.0 103/ul Normal 1.4-6.5 [facility] Comment on above: Performed By: #### C BC #### [facility] [address] [address] [address] Jame Hutton Neutrophils/100 WBC (Bld) 69.2 % Normal 43.0-75.0 [facility] Comment on above: Performed By: #### C BC #### [facility] [address] [place] [address] Dr. Jame Hutton Platelet mean volume (Bld) [Entitic vol] 11.5 fL Normal 9.5-13.5 [facility] Comment on above: Performed By: #### C BC #### [facility] [address] [place] [address] Dr. Jame Hutton PLT 250 103/ul Normal 150-450 [facility] Comment on above: Performed By: #### C BC #### [facility] [address] [place] [address] Dr. Jame Hutton RBC 5.01 106/ul Normal 4.20-5.40 [facility] Comment on above: Performed By: #### C BC #### [facility] [address] [place] [address] Dr. Jame Hutton WBC 7.3 103/ul Normal 4.0-11.0 [facility] Comment on above: Performed By: #### C BC #### [facility] [address] [place] [address] Dr. Jame Hutton GLYCOHEMOGLOBIN A1Con 2021 ADA RECOMMENDATION SEE BELOW Normal [facility] Comment on above: Result Comment: ADA RECOMMENDED LIMIT 4.0 - 6.0 ADA THERAPEUTIC TARGET < 7.0 ACTION SUGGESTED > 7.0 Performed By: #### A 1C #### [facility] [address] [place] [address] Dr. Jame Hutton Glucose [Mass/Vol] 94 mg/dL Normal [facility] Comment on above: Performed By: #### A 1C #### [facility] [address] [address] [address] Jame Hutton HbA1c (Bld) [Mass fraction] 4.9 % Normal 4.5-6.2 [facility] Comment on above: Performed By: #### A 1C #### [facility] [address] [place] [address] Dr. Jame Hutton LIPID PROFILEon 02-01-2022 CHOL-HDL RATIO NORM SEE BELOW Normal [facility] Comment on above: Result Comment: 3.3 - 4.4 LOW RISK 4.4 - 7.1 AVERAGE RISK 7.1 - 11.0 MODERATE RISK >11.0 HIGH RISK Performed By: #### B MP, LIPID, TSH, LIVER #### [facility] [address] [place] [address] Dr. Jame Hutton Cholesterol [Mass/Vol] 182 mg/dL Normal <=200 [facility] Comment on above: Performed By: #### B MP, LIPID, TSH, LIVER #### [facility] [address] [place] [address] Dr. Jame Hutton Cholesterol in HDL [Mass/Vol] 41 mg/dL Normal 40-60 [facility] Comment on above: Performed By: #### B MP, LIPID, TSH, LIVER #### [facility] [address] [place] [address] Dr. Jame Hutton Cholesterol in LDL [Mass/Vol] 102.6 mg/dL Normal [facility] Comment on above: Performed By: #### B MP, LIPID, TSH, LIVER #### [facility] [address] [place] [address] Dr. Jame Hutton Cholesterol.total/Cho lesterol in HDL [Mass ratio] 4.4 {ratio} Normal [facility] Comment on above: Performed By: #### B MP, LIPID, TSH, LIVER #### [facility] [address] [place] [address] Dr. Jame Hutton HDL NORMAL > or = 60 mg/dl - LO W CARDIOVASCULAR RISK <40 mg/dl - HIGH CARDIOVASCULAR RISK Normal [facility] Comment on above: Performed By: #### B MP, LIPID, TSH, LIVER #### [facility] [address] [address] [address] Jame Hutton LDL CALC NORMAL SEE BELOW Normal [facility] Comment on above: Result Comment: <100 mg/dl OPTIMAL 100 - 129 mg/dl NEAR OR ABOVE OPTIMAL 130 - 159 mg/dl BORDERLINE HIGH 160 - 189 mg/dl HIGH >190 mg/dl VERY HIGH Performed By: #### B MP, LIPID, TSH, LIVER #### [facility] [address] [address] [address] Jame Hutton Triglyceride [Mass/Vol] 192 mg/dL Critically high <=150 [facility] Comment on above: Performed By: #### B MP, LIPID, TSH, LIVER #### [facility] [address] [place] [address] Dr. Jame Hutton VLDL CALC 38.4 mg/dL Normal [facility] Comment on above: Performed By: #### B MP, LIPID, TSH, LIVER #### [facility] [address] [place] [address] Dr. Jame Hutton LIVER PROFILEon 02-01-2022 Albumin [Mass/Vol] 4.5 g/dL Normal 3.4-5.0 [facility] Comment on above: Performed By: #### B MP, LIPID, TSH, LIVER #### [facility] [address] [place] [address] Dr. Jame Hutton Albumin/Globulin [Mass ratio] 1.3 {ratio} Normal [facility] Comment on above: Performed By: #### B MP, LIPID, TSH, LIVER #### [facility] [address] [place] [address] Dr. Jame Hutton ALP [Catalytic activity/Vol] 96 U/L Normal 46-116 [facility] Comment on above: Performed By: #### B MP, LIPID, TSH, LIVER #### [facility] [address] [place] [address] Dr. Jame Hutton ALT [Catalytic activity/Vol] 35 U/L Normal 14-59 [facility] Comment on above: Performed By: #### B MP, LIPID, TSH, LIVER #### [facility] [address] [place] [address] Dr. Jame Hutton AST [Catalytic activity/Vol] 16 U/L Normal 15-37 [facility] Comment on above: Performed By: #### B MP, LIPID, TSH, LIVER #### [facility] [address] [place] [address] Dr. Jame Hutton BILI, CONJUGATED 0.1 mg/dL Normal 0.0-0.2 [facility] Comment on above: Performed By: #### B MP, LIPID, TSH, LIVER #### [facility] [address] [place] [address] Dr. Jame Hutton Bilirubin [Mass/Vol] 0.2 mg/dL Normal 0.2-1.0 [facility] Comment on above: Performed By: #### B MP, LIPID, TSH, LIVER #### [facility] [address] [place] [address] Dr. Jame Hutton Globulin (S) [Mass/Vol] 3.4 g/dL Normal [facility] Comment on above: Performed By: #### B MP, LIPID, TSH, LIVER #### [facility] [address] [place] [address] Dr. Jame Hutton Protein [Mass/Vol] 7.9 g/dL Normal 6.4-8.2 [facility] Comment on above: Performed By: #### B MP, LIPID, TSH, LIVER #### [facility] [address] [place] [address] Dr. Jame Hutton PROF CHEM 8 (BAS METB)on Anion gap [Moles/Vol] 11.6 mmol/L Normal [facility] Comment on above: Performed By: #### B MP, LIPID, TSH, LIVER #### [facility] [address] [place] [address] Dr. Jame Hutton Calcium [Mass/Vol] 9.5 mg/dL Normal 8.5-10.1 [facility] Comment on above: Performed By: #### B MP, LIPID, TSH, LIVER #### [facility] [address] [place] [address] Dr. Jame Hutton Chloride [Moles/Vol] 102 mmol/L Normal 98-107 [facility] Comment on above: Performed By: #### B MP, LIPID, TSH, LIVER #### [facility] [address] [address] [address] Jame Hutton CO2 [Moles/Vol] 29.3 mmol/L Normal 21.0-32.0 [facility] Comment on above: Performed By: #### B MP, LIPID, TSH, LIVER #### [facility] [address] [address] [address] Jame Hutton Creatinine [Mass/Vol] 0.73 mg/dL Normal 0.55-1.02 [facility] Comment on above: Performed By: #### B MP, LIPID, TSH, LIVER #### [facility] [address] [place] [address] Dr. Jame Hutton EGFR-AF LAO >60 Normal >=60 [facility] Comment on above: Performed By: #### B MP, LIPID, TSH, LIVER #### [facility] [address] [place] [address] Dr. Jame Hutton EGFR-NON AF LAO >60 Normal >=60 [facility] Comment on above: Performed By: #### B MP, LIPID, TSH, LIVER #### [facility] [address] [place] [address] Dr. Jame Hutton Glucose [Mass/Vol] 87 mg/dL Normal 74-106 [facility] Comment on above: Performed By: #### B MP, LIPID, TSH, LIVER #### [facility] [address] [place] [address] Dr. Jame Hutton Potassium [Moles/Vol] 3.9 mmol/L Normal 3.5-5.1 [facility] Comment on above: Performed By: #### B MP, LIPID, TSH, LIVER #### [facility] [address] [place] [address] Dr. Jame Hutton Sodium [Moles/Vol] 139 mmol/L Normal 136-145 [facility] Comment on above: Performed By: #### B MP, LIPID, TSH, LIVER #### [facility] [address] [address] [address] Jame Hutton Urea nitrogen [Mass/Vol] 11.0 mg/dL Normal 7.0-18.0 [facility] Comment on above: Performed By: #### B MP, LIPID, TSH, LIVER #### [facility] [address] [address] [address] Jame Hutton Urea nitrogen/Creatinine [Mass ratio] 15.1 mg/mg Normal [facility] Comment on above: Performed By: #### B MP, LIPID, TSH, LIVER #### [facility] [address] [address] [address] Jame Hutton TSHon 02-01-2022 TSH 1.696 uIU/mL Normal 0.358-3.740 [facility] Comment on above: Performed By: #### B MP, LIPID, TSH, LIVER #### [facility] [address] [place] [address] Dr. Jame Hutton PAP ACOG PANEL 2: 21 to 29on 12-21-2021 . . Normal [facility] Comment on above: Performed By: #### 4 [id number] #### [facility] [address] [place] [address] Dr. Jame Hutton Age Gdln ACOG Testing [facility] Comment on above: Performed By: #### 4 [id number] #### [facility] [address] [place] [address] Dr. Jame Hutton DIAGNOSIS: Comment Abnormal [facility] Comment on above: Result Comment: EPIT HELIAL CELL ABNORMALITY. LOW GRADE SQUAMOUS INTRAEPITHELIAL LESION (LSIL). Performed By: #### 4 [id number] #### [facility] [address] [place] [address] Dr. Jame Hutton Electronically signed by: Comment Normal [facility] Comment on above: Result Comment: Yohana Garsia MD, Pathologist Performed By: #### 4 [id number] #### [facility] [address] [place] [address] Dr. Jame Hutton Methodology: Comment Normal [facility] Comment on above: Result Comment: This liquid based ThinPrep(R) pap test was screened with the use of an image guided system. Performed By: #### 4 [id number] #### [facility] [address] [place] [address] Dr. Jame Hutton Note: Comment Normal [facility] Comment on above: Result Comment: The Pap smear is a screening test designed to aid in the detection of premalignant and malignant conditions of the uterine cervix. It is not a diagnostic procedure and should not be used as the sole means of detecting cervical cancer. Both false-positive and false-negative reports do occur. . Performed By: #### 4 [id number] #### [facility] [address] [place] [address] Dr. Jame Hutton Pathologist Provided ICD10 Comment Normal [facility] Comment on above: Result Comment: [id number] Performed By: #### 4 [id number] #### [facility] [address] [place] [address] Dr. Jame Hutton Performed by: Comment Normal [facility] Comment on above: Result Comment: Linn Kemp, Snorkelling Instructor (ASCP) Performed By: #### 4 [id number] #### [facility] [address] [place] [address] Dr. Jame Hutton Recommendation: Comment Abnormal [facility] Comment on above: Result Comment: Sugg est follow up as clinically appropriate. Performed By: #### 4 [id number] #### [facility] [address] [place] [address] Dr. Jame Hutton Reflex Criteria: Comment Normal [facility] Comment on above: Result Comment: The HPV DNA reflex criteria were not met with this specimen result therefore, no HPV testing was performed. . Performed By: #### 4 [id number] #### [facility] [address] [place] [address] Dr. Jame Hutton Specimen adequacy: Comment Normal [facility] Comment on above: Result Comment: Sati sfactory for evaluation. Endocervical and/or squamous metaplastic cells (endocervical component) are present. Performed By: #### 4 [id number] #### [facility] [address] [place], [place] [id number] Dr. Jame Hutton Encounters Encounter Date Encounter [...] without abnormal findings DR ANDRE HENAO [facility] Start: 02-01-2022 End: 02-02-[address] ANDRE HENAO Facility:[facility] Start: 02-01-2022 End: 02-02-2022 Encounter for general adult medical examination without abnormal findings DR ANDRE HENAO Facility:[facility] Start: 12-14-2021 End: 12-14-[address] SHELLY SMITH . Facility: Plan of Treatment Date Care Activity Detail Author Start: 05-21-2023 End: 05-21-2023 Patient encounter procedure 05/21/2023 2:00 PM EST Routine [facility] [address] [place] [place] [id number] Shelly Smith DO [address] [place] [address] Arrived [facility] Comment on above: Arrived Start: 12-08-2022 Influenza vaccination Influenza Vacc ine (#1) [facility] Payers Date Payer Category Payer Medicaid [employer] [place] [id number] 2022-Present [address] [place] [address] [id number] 2022 Medicaid [id number] 2020 Unknown BCBS BCBS xxxxxx [id number] 2020-Present [phone] [address] [place] [address] [id number] 1998 Unknown [id number] 1998 Unknown [id number] [id number] 1998 Unknown [id number] 1998 Unknown [id number] [id number] 1998 Unknown [id number] [id number] 1998 Unknown [id number] [id number] 1998 Unknown [id number] [id number] 1998 Unknown [id number] [id number] 1998 Unknown [id number] 1959 Unknown [id number] Social History Date Type Detail Facility Start: 11-28-2022 Tobacco smoking stat [facility] Never smoked tobacco [facility] Start: 05-14-2023 Alcohol intake Lifetime non-d lidya (finding) [facility] Start: 11-28-2022 History of Social function [facility] Start: 11-28-2022 Tobacco use panel [facility] Start: 09-16-2022 [facility] [facility] Start: 2000 Sex Assigned At Female [facility] Start: 08-30-2022 Gender identity Identifies as female gender (finding) [facility] Medical Equipment Procedure Code Equipment Code Equipment Origin al Text Equipment Identifier Dates 1 each by In Vit ro route in the morning and 1 each at noon and 1 each in the evening and 1 each before bedtime. Check FSBS fasting and one hour after each meal for a total of 4 checks daily.. [id number] Start: 03-08-2023 End: 03-07-2024 1 each in the morning and 1 each at noon and 1 each in the evening and 1 each before bedtime. Check FSBS fasting and one hour after each meal for a total of four checks daily.. [id number] Start: 03-08-2023 End: 03-07-2024 Goals Date Patient Goal Desired Activity /State Personal health goal Summary Purpose Family History No Family History Records FoundNo Family History Records Found Advance Directives No Advanced Directives Records FoundNo Advanced Directives Records Found Additional Source Comments INFORMATION SOURCE (unrecogn ized section and content) DATE CREATED AUTHOR 07/21/2022 [facility] DATE CREATED AUTHOR AUTHOR'Dmitri FARAH 05/22/2023 [facility] FOR RECORDS PERTAINING TO PATIENTS WHO ARE [...] BE BASED ON THE PRIMARY CLINICAL RECORDS. [employer] provides no warranty or guarantee of the accuracy or completeness of information in this document.
[2023-05-26 08:58] VITALS: BP 133/75; PULSE 107
== END 2023-05-26 09:26 | disposition home or self-care (01) ==
LOC: FBCO 07:29 → FBC 08:53
PROVIDERS: PCP Family Medicine; Visit Provider Obstetrics & Gynecology
DX: O24.419 Gestational diabetes mellitus in pregnancy, unspecified control (principal); Z3A.00 Weeks of gestation of pregnancy not specified
CPT/HCPCS: 59025

== ENCOUNTER 2023-05-30 07:44 | Outpatient (OUT) | payer BC, OTHER, SELFPAY ==
--- OUTSIDE RECORDS SUMMARY | 2023-05-30 07:48 | XMS_ITS | CCD ---
Author Name Unknown Address [address] [place] [address] Organization [facility] Care Team Providers Care Aquatics Instructor Name Role Phone LUIS ., DR BRAVO [...] SMITH Attending Unavailable GHISLAINE VEGA Attending Unavailable LUIS, SHELLY Attending Unavailable LUIS, SHELLY Attending Unavailable LUIS, SHELLY Attending Unavailable SILVIAGHISLAINE Attending Unavailable LUIS, SHELLY Attending Unavailable Allergies Allergy Classification Reported Allergen(s) Allergy Type Date of Onset Reaction(s) Facility (1 source) Naproxen Drug Allergy 0 [facility] Repository (1 source) Naproxen Drug Allergy [...] daily. 120 each 3 03/08/2023 03/07/2024 Active Btcinmoc-Nfk-Bm-FA ( 1 + IRON PO) (1 source) Ptqyxjgk-Fzn-Ag-FA ( 1 + IRON PO) Take by [...] 21 to 29on 07-20-2022 . . Normal [facility] Comment on above: Performed By: #### [id number] #### [facility] [address] [place] [address] Dr. Jame Hutton Age Gdln ACOG Testing [facility] Comment on above: Performed By: #### [id number] #### [facility] [address] [place] [address] Dr. Jame Hutton DIAGNOSIS: Comment Abnormal [facility] Comment on above: Result Comment: EPIT HELIAL CELL ABNORMALITY. LOW GRADE SQUAMOUS INTRAEPITHELIAL LESION (LSIL). Performed By: #### 4 [id number] #### [facility] [address] [address] [address] Jame Hutton Electronically signed by: Comment Normal [facility] Comment on above: Result Comment: Yohana Garsia MD, Pathologist Performed By: #### 4 [id number] #### [facility] [address] [address] [address] Jame Hutton Methodology: Comment [facility] Comment on above: Result Comment: This liquid based ThinPrep(R) pap test was screened with the use of an image guided system. Performed By: #### 4 [id number] #### [facility] [address] [place] [address] Dr. Jame Hutton Note: Comment [facility] Comment on above: Result Comment: The Pap smear is a screening test designed to aid in the detection of premalignant and malignant conditions of the uterine cervix. It is not a diagnostic procedure and should not be used as the sole means of detecting cervical cancer. Both false-positive and false-negative reports do occur. . Performed By: #### 4 [id number] #### [facility] [address] [place] [address] Dr. Jame Hutton Pathologist Provided ICD10 Comment Normal [facility] Comment on above: Result Comment: R87. [id number] Performed By: #### 4 [id number] #### [facility] [address] [place] [address] Dr. Jame Hutton Performed by: Comment Normal [facility] Comment on above: Result Comment: Shivani Anderson, Guest Room Attendant (ASCP) Performed By: #### 4 [id number] #### [facility] [address] [place] [address] Dr. Jame Hutton Recommendation: Comment Abnormal [facility] Comment on above: Result Comment: Sugg est follow up as clinically appropriate. Performed By: #### 4 [id number] #### [facility] [address] [place] [address] Dr. Jame Hutton Reflex Criteria: Comment Normal [facility] Comment on above: Result Comment: The HPV DNA reflex criteria were not met with this specimen result therefore, no HPV testing was performed. . Performed By: #### 4 [id number] #### [facility] [address] [place] [address] Dr. Jame Hutton Specimen adequacy: Comment Normal [facility] Comment on above: Result Comment: Sati sfactory for evaluation. Endocervical and/or squamous metaplastic cells (endocervical component) are present. Areas of partially obscuring inflammatory exudate are present. Performed By: #### 4 [id number] #### [facility] [address] [place] [address] Dr. Jame Hutton INSULINon 02-03-2022 Insulin 11.5 uIU/mL Normal 2.6-24.9 [facility] Comment on above: Performed By: #### I NSULIN #### [facility] [address] [place] [address] Dr. Jame Hutton CBC AUTO DIFFon 02-01-2022 BASO # 0.0 103/ul Normal 0.0-0.1 [facility] Comment on above: Performed By: #### C BC #### [facility] [address] [address] [address] Jame Hutton Basophils/100 WBC (Bld) 0.6 % Normal 0.2-2.0 [facility] Comment on above: Performed By: #### C BC #### [facility] [address] [place] [address] Dr. Jame Hutton EO # 0.1 103/ul Normal 0.0-0.7 [facility] Comment on above: Performed By: #### C BC #### [facility] [address] [place] [address] Dr. Jame Hutton Eosinophils/100 WBC (Bld) 0.8 % Critically low 0.9-7.0 [facility] Comment on above: Performed By: #### C BC #### [facility] [address] [place] [address] Dr. Jame Hutton Erythrocyte distribution width (RBC) [Ratio] 12.5 % Normal 11.0-15.0 [facility] Comment on above: Performed By: #### C BC #### [facility] [address] [place] [address] Dr. Jame Hutton Hematocrit (Bld) [Volume fraction] 43.5 % Normal 36.0-48.0 [facility] Comment on above: Performed By: #### C BC #### [facility] [address] [place] [address] Dr. Jame Hutton Hemoglobin (Bld) [Mass/Vol] 14.8 g/dL Normal 12.0-16.0 [facility] Comment on above: Performed By: #### C BC #### [facility] [address] [place] [address] Dr. Jame Hutton IG # 0.02 10e3/ul Normal 0.00-0.03 [facility] Comment on above: Performed By: #### C BC #### [facility] [address] [place] [address] Dr. Jame Hutton IG % 0.3 % Normal 0.0-0.5 [facility] Comment on above: Performed By: #### C BC #### [facility] [address] [place] [address] Dr. Jame Hutton LYMPH # 1.7 103/ul Normal 1.2-3.8 [facility] Comment on above: Performed By: #### C BC #### [facility] [address] [place] [address] Dr. Jame Hutton Lymphocytes/100 WBC (Bld) 23.3 % Normal 20.5-60.0 [facility] Comment on above: Performed By: #### C BC #### [facility] [address] [place] [address] Dr. Jame Hutton MANUAL DIFF REQ NO Normal [facility] Comment on above: Performed By: #### C BC #### [facility] [address] [place] [address] Dr. Jame Hutton MCH (RBC) [Entitic mass] 29.5 pg Normal 26.7-34.0 [facility] Comment on above: Performed By: #### C BC #### [facility] [address] [place] [address] Dr. Jame Hutton MCHC (RBC) [Mass/Vol] 34.0 g/dL Normal 29.9-35.2 [facility] Comment on above: Performed By: #### C BC #### [facility] [address] [place] [address] Dr. Jame Hutton MCV (RBC) [Entitic vol] 86.8 fL Normal 81.0-99.0 [facility] Comment on above: Performed By: #### C BC #### [facility] [address] [place] [address] Dr. Jame Hutton MONO # 0.4 103/ul Normal 0.3-0.8 [facility] Comment on above: Performed By: #### C BC #### [facility] [address] [place] [address] Dr. Jame Hutton Monocytes/100 WBC (Bld) 5.8 % Normal 1.7-12.0 [facility] Comment on above: Performed By: #### C BC #### [facility] [address] [place] [address] Dr. Jame Hutton NEUT # 5.0 103/ul Normal 1.4-6.5 [facility] Comment on above: Performed By: #### C BC #### [facility] [address] [place] [address] Dr. Jame Hutton Neutrophils/100 WBC (Bld) 69.2 % Normal 43.0-75.0 [facility] Comment on above: Performed By: #### C BC #### [facility] [address] [place] [address] Dr. Jame Hutton Platelet mean volume (Bld) [Entitic vol] 11.5 fL Normal 9.5-13.5 [facility] Comment on above: Performed By: #### C BC #### [facility] [address] [place] [address] Dr. Jame Hutton PLT 250 103/ul Normal 150-450 [facility] Comment on above: Performed By: #### C BC #### [facility] [address] [place] [address] Dr. Jame Hutton RBC 5.01 106/ul Normal 4.20-5.40 [facility] Comment on above: Performed By: #### C BC #### [facility] [address] [place] [address] Dr. Jame Hutton WBC 7.3 103/ul Normal 4.0-11.0 [facility] Comment on above: Performed By: #### C BC #### [facility] [address] [place] [address] Dr. Jame Hutton GLYCOHEMOGLOBIN A1Con 2021 ADA RECOMMENDATION SEE BELOW Normal [facility] Comment on above: Result Comment: ADA RECOMMENDED LIMIT 4.0 - 6.0 ADA THERAPEUTIC TARGET < 7.0 ACTION SUGGESTED > 7.0 Performed By: #### A 1C #### [facility] [address] [place] [address] Dr. Jame Hutton Glucose [Mass/Vol] 94 mg/dL Normal [facility] Comment on above: Performed By: #### A 1C #### [facility] [address] [address] [address] Jame Hutton HbA1c (Bld) [Mass fraction] 4.9 % Normal 4.5-6.2 [facility] Comment on above: Performed By: #### A 1C #### [facility] [address] [place] [address] Dr. Jame Hutton LIPID PROFILEon 02-01-2022 CHOL-HDL RATIO NORM SEE BELOW Normal [facility] Comment on above: Result Comment: 3.3 - 4.4 LOW RISK 4.4 - 7.1 AVERAGE RISK 7.1 - 11.0 MODERATE RISK >11.0 HIGH RISK Performed By: #### B MP, LIPID, TSH, LIVER #### [facility] [address] [place] [address] Dr. Jame Hutton Cholesterol [Mass/Vol] 182 mg/dL Normal <=200 [facility] Comment on above: Performed By: #### B MP, LIPID, TSH, LIVER #### [facility] [address] [place] [address] Dr. Jame Hutton Cholesterol in HDL [Mass/Vol] 41 mg/dL Normal 40-60 [facility] Comment on above: Performed By: #### B MP, LIPID, TSH, LIVER #### [facility] [address] [place] [address] Dr. Jame Hutton Cholesterol in LDL [Mass/Vol] 102.6 mg/dL Normal [facility] Comment on above: Performed By: #### B MP, LIPID, TSH, LIVER #### [facility] [address] [place] [address] Dr. Jame Hutton Cholesterol.total/Cho lesterol in HDL [Mass ratio] 4.4 {ratio} Normal [facility] Comment on above: Performed By: #### B MP, LIPID, TSH, LIVER #### [facility] [address] [place] [address] Dr. Jame Hutton HDL NORMAL > or = 60 mg/dl - LO W CARDIOVASCULAR RISK <40 mg/dl - HIGH CARDIOVASCULAR RISK Normal [facility] Comment on above: Performed By: #### B MP, LIPID, TSH, LIVER #### [facility] [address] [address] [address] Jame Hutton LDL CALC NORMAL SEE BELOW Normal [facility] Comment on above: Result Comment: <100 mg/dl OPTIMAL 100 - 129 mg/dl NEAR OR ABOVE OPTIMAL 130 - 159 mg/dl BORDERLINE HIGH 160 - 189 mg/dl HIGH >190 mg/dl VERY HIGH Performed By: #### B MP, LIPID, TSH, LIVER #### [facility] [address] [address] [address] Jame Hutton Triglyceride [Mass/Vol] 192 mg/dL Critically high <=150 [facility] Comment on above: Performed By: #### B MP, LIPID, TSH, LIVER #### [facility] [address] [address] [address] Jame Hutton VLDL CALC 38.4 mg/dL Normal [facility] Comment on above: Performed By: #### B MP, LIPID, TSH, LIVER #### [facility] [address] [address] [address] Jame Hutton LIVER PROFILEon 02-01-2022 Albumin [Mass/Vol] 4.5 g/dL Normal 3.4-5.0 [facility] Comment on above: Performed By: #### B MP, LIPID, TSH, LIVER #### [facility] [address] [address] [address] Jame Hutton Albumin/Globulin [Mass ratio] 1.3 {ratio} Normal [facility] Comment on above: Performed By: #### B MP, LIPID, TSH, LIVER #### [facility] [address] [place] [address] Dr. Jame Hutton ALP [Catalytic activity/Vol] 96 U/L Normal 46-116 [facility] Comment on above: Performed By: #### B MP, LIPID, TSH, LIVER #### [facility] [address] [address] [address] Jame Hutton ALT [Catalytic activity/Vol] 35 U/L Normal 14-59 [facility] Comment on above: Performed By: #### B MP, LIPID, TSH, LIVER #### [facility] [address] [place] [address] Dr. Jame Hutton AST [Catalytic activity/Vol] 16 U/L Normal 15-37 [facility] Comment on above: Performed By: #### B MP, LIPID, TSH, LIVER #### [facility] [address] [place] [address] Dr. Jame Hutton BILI, CONJUGATED 0.1 mg/dL Normal 0.0-0.2 [facility] Comment on above: Performed By: #### B MP, LIPID, TSH, LIVER #### [facility] [address] [place] [address] Dr. Jame Hutton Bilirubin [Mass/Vol] 0.2 mg/dL Normal 0.2-1.0 [facility] Comment on above: Performed By: #### B MP, LIPID, TSH, LIVER #### [facility] [address] [place] [address] Dr. Jame Hutton Globulin (S) [Mass/Vol] 3.4 g/dL Normal [facility] Comment on above: Performed By: #### B MP, LIPID, TSH, LIVER #### [facility] [address] [place] [address] Dr. Jame Hutton Protein [Mass/Vol] 7.9 g/dL Normal 6.4-8.2 [facility] Comment on above: Performed By: #### B MP, LIPID, TSH, LIVER #### [facility] [address] [place] [address] Dr. Jame Hutton PROF CHEM 8 (BAS METB)on Anion gap [Moles/Vol] 11.6 mmol/L Normal [facility] Comment on above: Performed By: #### B MP, LIPID, TSH, LIVER #### [facility] [address] [place] [address] Dr. Jame Hutton Calcium [Mass/Vol] 9.5 mg/dL Normal 8.5-10.1 [facility] Comment on above: Performed By: #### B MP, LIPID, TSH, LIVER #### [facility] [address] [place] [address] Dr. Jame Hutton Chloride [Moles/Vol] 102 mmol/L Normal 98-107 [facility] Comment on above: Performed By: #### B MP, LIPID, TSH, LIVER #### [facility] [address] [address] [address] Jame Hutton CO2 [Moles/Vol] 29.3 mmol/L Normal 21.0-32.0 [facility] Comment on above: Performed By: #### B MP, LIPID, TSH, LIVER #### [facility] [address] [address] [address] Jame Hutton Creatinine [Mass/Vol] 0.73 mg/dL Normal 0.55-1.02 [facility] Comment on above: Performed By: #### B MP, LIPID, TSH, LIVER #### [facility] [address] [address] [address] Jame Hutton EGFR-AF KENYAN >60 Normal >=60 [facility] Comment on above: Performed By: #### B MP, LIPID, TSH, LIVER #### [facility] [address] [address] [address] Jame Hutton EGFR-NON AF KENYAN >60 Normal >=60 [facility] Comment on above: Performed By: #### B MP, LIPID, TSH, LIVER #### [facility] [address] [address] [address] Jame Hutton Glucose [Mass/Vol] 87 mg/dL Normal 74-106 [facility] Comment on above: Performed By: #### B MP, LIPID, TSH, LIVER #### [facility] [address] [address] [address] Jame Hutton Potassium [Moles/Vol] 3.9 mmol/L Normal 3.5-5.1 [facility] Comment on above: Performed By: #### B MP, LIPID, TSH, LIVER #### [facility] [address] [address] [address] Jame Hutton Sodium [Moles/Vol] 139 mmol/L Normal 136-145 [facility] Comment on above: Performed By: #### B MP, LIPID, TSH, LIVER #### [facility] [address] [place] [address] Dr. Jame Hutton Urea nitrogen [Mass/Vol] 11.0 mg/dL Normal 7.0-18.0 [facility] Comment on above: Performed By: #### B MP, LIPID, TSH, LIVER #### [facility] [address] [place] [address] Dr. Jame Hutton Urea nitrogen/Creatinine [Mass ratio] 15.1 mg/mg Normal [facility] Comment on above: Performed By: #### B MP, LIPID, TSH, LIVER #### [facility] [address] [place] [address] Dr. Jame Hutton TSHon 02-01-2022 TSH 1.696 uIU/mL Normal 0.358-3.740 [facility] Comment on above: Performed By: #### B MP, LIPID, TSH, LIVER #### [facility] [address] [place] [address] Dr. Jame Hutton PAP ACOG PANEL 2: 21 to 29on 12-21-2021 . . Normal [facility] Comment on above: Performed By: #### 4 [id number] #### [facility] [address] [place] [address] Dr. Jame Hutton Age Gdln ACOG Testing [facility] Comment on above: Performed By: #### 4 [id number] #### [facility] [address] [place] [address] Dr. Jame Hutton DIAGNOSIS: Comment Abnormal [facility] Comment on above: Result Comment: EPIT HELIAL CELL ABNORMALITY. LOW GRADE SQUAMOUS INTRAEPITHELIAL LESION (LSIL). Performed By: #### 4 [id number] #### [facility] [address] [place] [address] Dr. Jame Hutton Electronically signed by: Comment Normal [facility] Comment on above: Result Comment: Yohana Garsia MD, Pathologist Performed By: #### 4 [id number] #### [facility] [address] [place] [address] Dr. Jame Hutton Methodology: Comment Normal [facility] Comment on above: Result Comment: This liquid based ThinPrep(R) pap test was screened with the use of an image guided system. Performed By: #### 4 [id number] #### [facility] [address] [place] [address] Dr. Jame Hutton Note: Comment Normal [facility] Comment on above: Result Comment: The Pap smear is a screening test designed to aid in the detection of premalignant and malignant conditions of the uterine cervix. It is not a diagnostic procedure and should not be used as the sole means of detecting cervical cancer. Both false-positive and false-negative reports do occur. . Performed By: #### 4 [id number] #### [facility] [address] [place] [address] Dr. Jame Hutton Pathologist Provided ICD10 Comment Normal [facility] Comment on above: Result Comment: R87. [id number] Performed By: #### 4 [id number] #### [facility] [address] [place] [address] Dr. Jame Hutton Performed by: Comment Normal [facility] Comment on above: Result Comment: Linn Kemp, Guest Room Attendant (ASCP) Performed By: #### 4 [id number] #### [facility] [address] [place] [address] Dr. Jame Hutton Recommendation: Comment Abnormal [facility] Comment on above: Result Comment: Sugg est follow up as clinically appropriate. Performed By: #### 4 [id number] #### [facility] [address] [place] [address] Dr. Jame Hutton Reflex Criteria: Comment Normal [facility] Comment on above: Result Comment: The HPV DNA reflex criteria were not met with this specimen result therefore, no HPV testing was performed. . Performed By: #### 4 [id number] #### [facility] [address] [place] [address] Dr. Jame Hutton Specimen adequacy: Comment Normal [facility] Comment on above: Result Comment: Sati sfactory for evaluation. Endocervical and/or squamous metaplastic cells (endocervical component) are present. Performed By: #### 4 [id number] #### [facility] [address] [place], [place] [address] Dr. Jame Hutton Encounters Encounter Date Encounter Type Care Provider Facility Start: 05-28-2023 End: 05-28-2023 ambulatory SHELLY SMITH Not Available Start: 05-21-2023 End: 05-21-2023 ambulatory SHELLY LUIS Not Available Start: 05-21-2023 Bamboo flowsheet Shelly Luis D O Work Phone: [facility] Start: 05-21-2023 Bamboo flowsheet Shelly Luis D O Work Phone: [facility] [...] without abnormal findings DR ANDRE HENAO [facility] Start: 02-01-2022 End: 02-02-[address] ANDRE HENAO Facility:[facility] Start: 02-01-2022 End: 02-02-2022 Encounter for general adult medical examination without abnormal findings DR ANDRE HENAO Facility:[facility] Start: 12-14-2021 End: 12-14-[address] SHELLY SMITH . Facility:[facility] Plan of Treatment Date Care Activity Detail Author Start: 05-21-2023 End: 05-21-2023 Patient encounter procedure 05/21/2023 2:00 PM EST Routine [facility] [address] [place] [id number] Shelly Smith, DO [address] [place] [address] [phone] (work) Arrived [facility] Comment on above: Arrived Start: 12-08-2022 Influenza vaccination Influenza Vacc ine (#1) [facility] Payers Date Payer Category Payer Medicaid [employer] [place] [id number] 2022-Present [address] [place] [address] [id number] 2022 Medicaid [id number] 2020 Unknown BCBS BCBS xxxxxx [id number] 2020-Present [phone] [address] [place] [address] [id number] 1998 Unknown [id number] 1998 Unknown [id number] [id number] 1998 Unknown [id number] [id number] 1998 Unknown [id number] [id number] 1998 Unknown [id number] [id number] 1998 Unknown [id number] [id number] 1998 Unknown [id number] [id number] 1998 Unknown [id number] [id number] 1998 Unknown [id number] [id number] 1998 Unknown [id number] [id number] 1959 Unknown [id number] Social History Date Type Detail Facility Start: 11-28-[address] [facility] Start: 05-14-2023 Alcohol intake Lifetime non-d lidya (finding) [facility] Start: 11-28-2022 History of Social function [facility] Start: 11-28-2022 Tobacco use panel [facility] Start: 09-16-2022 [facility] Start: [...] for a total of 4 checks daily.. [id number] Start: 03-08-2023 End: 03-07-2024 1 each in the morning and 1 each at noon and 1 each in the evening and 1 each before bedtime. Check FSBS fasting and one hour after each meal for a total of four checks daily.. [id number] Start: 03-08-2023 End: 03-07-2024 Goals Date Patient Goal Desired Activity /State Personal health goal Summary Purpose Family History No Family History Records FoundNo Family History Records Found Advance Directives No Advanced Directives Records FoundNo Advanced Directives Records Found Additional Source Comments INFORMATION SOURCE (unrecogn ized section and content) DATE CREATED AUTHOR 07/21/2022 [facility] DATE CREATED AUTHOR AUTHOR'S ORGANIZ ATION 05/28/2023 [facility] FOR RECORDS PERTAINING TO PATIENTS [...] BE BASED ON THE PRIMARY CLINICAL RECORDS. [facility] provides no warranty or guarantee of the accuracy or completeness of information in this document.
[2023-05-30 17:46] VITALS: BP 129/80; PULSE 108
--- NOTE | 2023-05-30 18:21 | US_ITS ---
[address] [address] Patient Name: PAPITO BOSS MRN: [id number] date: 2000 Sex: F Assigned Patient Location: [facility] Current Patient Location: Accession/Order Number: [id number] Exam Date: 05/30/2023 18:30 Report Date: 05/31/2023 07:15 At the request of: GHISLAINE VEGA Procedure: US OB BPP w non-stress EXAMINATION: US OB BPP w non-stress HISTORY: GESTATIONAL DIABETES MELLITUS O24.419 COMPARISON: Ultrasound OB biophysical 05/23/2023 TECHNIQUE: Ultrasound biophysical profile was performed in the radiology department. BREATHING MOVEMENTS: 2.0 GROSS BODY MOVEMENTS: 2.0 TONE: 2.0 QUALITATIVE AMNIOTIC FLUID VOLUME: 2.0 PRESENTATION: BREECH HEART RATE: 131.1 bpm bpm. AMNIOTIC FLUID VOLUME: 14.4 cm GESTATIONAL AGE: 38 weeks 4 days CONCLUSION: Total biophysical profile score 8.0. Electronically authenticated by: SAUL HOBBS Date: 05/31/2023 07:15
== END 2023-05-30 19:00 | disposition home or self-care (01) ==
LOC: US 07:45 → FBC 17:43
PROVIDERS: PCP Family Medicine; Visit Provider Physician Assistant
DX: O24.419 Gestational diabetes mellitus in pregnancy, unspecified control (principal); Z3A.38 38 weeks gestation of pregnancy
CPT/HCPCS: 76818